=== PATIENT | male | born 1945 | race Caucasian/White ===

== ENCOUNTER 2017-10-05 10:41 | Emergency (ER) | payer OTHER, SELFPAY ==
[2017-10-05 10:42] VITALS: BP 120/76; PULSE 154; RESP 16; TEMP 36.4; O2SAT 95; BMI 30.2
--- NOTE | 2017-10-05 10:55 | CT_ITS ---
STUDY: CT ABDOMEN AND PELVIS WITHOUT CONTRAST REASON FOR EXAM: Male, 72 years old. Abdominal pain, nausea and diarrhea. RADIATION DOSAGE (If Supplied By Facility): CTDIvol = ( 22.57 ) mGy, DLP = ( 1302.89 ) mGycm TECHNIQUE: Transaxial images were obtained from the dome of the diaphragm to the symphysis pubis without oral contrast, and without intravenous contrast. Sagittal and coronal images were reconstructed. Individualized dose optimization techniques were used for this CT. COMPARISON: None. FINDINGS: The visualized lung bases are unremarkable. The heart size is normal. There is diffuse fatty infiltration of the liver. No focal lesion is identified on this noncontrast examination. There is a gallstone in the gallbladder neck. There is questionable thickening of the gallbladder wall. Normal spleen. Normal pancreas. Normal bilateral adrenal glands. There is mild bilateral perinephric stranding. There is no evidence of hydronephrosis. No abnormal calcifications are seen in the kidneys or the expected courses of the ureters bilaterally. There is probably small hiatal hernia. Normal small intestine. There is fecal retention. The appendix is visualized and appears normal. There is atherosclerotic calcification of the abdominal aorta with elongation and tortuosity, but without a demonstrated aneurysm. Normal inferior vena cava. Normal retroperitoneum. Normal urinary bladder. The prostate is markedly enlarged indenting the bladder base. There are prostatic calcifications. Normal abdominal wall. There are diffuse degenerative changes of the visualized lumbar spine. CT/Abdomen/Pelvis without Cont IMPRESSION: 1. Fatty infiltration of the liver. 2. Gallstone with questionable thickening of the gallbladder wall. Correlation with gallbladder ultrasound is recommended. 3. No evidence of appendicitis. 4. Nonspecific mild bilateral perinephric stranding without evidence of hydronephrosis. Electronically Signed: Shane Rivera MD at 12:03 EDT Tel , Service support ,
--- NOTE | 2017-10-05 10:56 | ED.VISSUMM ---
- ER Visit Summary Date of Service: 10/05/17 Chief Complaint: Abdominal pain, weakness History of Present Illness: The patient is a 72 M who had abdominal pain that started last night. He states his stomach felt tight. He had 3 episodes of vomiting last night. He denies any diarrhea. He has never had any abdominal surgeries in the past. He tried Pepto-Bismol but it did not help. No fevers. He denies any chest pain or shortness of breath. He also feels dizzy and weak. Physical Examination: Vital signs reviewed. Heart rate is 149. HEENT exam unremarkable. Heart is tachycardic and regular rhythm without murmurs. Lungs are clear to auscultation bilaterally. Abdomen soft with no specific tenderness upon palpation. He is mildly distended. The rest of his exam is unremarkable Test Results: EKG is sinus tachycardia with a rate of 145. Nonspecific ST and T-wave changes. White blood cell count 18.4, sodium 134 chloride 96 glucose 320 BUN 26 creatinine 1.79 total bilirubin 5.5 ALT 235 AST 407. CAT scan reveals gallbladder wall thickening with a gallstone Emergency Department Course and Treatment: My concern is that this patient likely needs a surgical evaluation. I spoke with Dr. Redd who believes the patient likely needs an ERCP which he cannot perform. I talked with family about this and they requested to go to [facility]. Dr. Chauhan the surgeon occupational therapy department chair will accept the patient. Treatment Plan: [] Disposition: Transfer Impression: Acute cholecystitis with probable choledocholithiasis Sepsis This note was generated with [employer] dictation software. It may contain incorrect words, spelling, and punctuation that were not noted in review of the chart prior to signing ED Disposition - Plan for ED Patient: Chief Complaint: Weakness Referrals: Guanako Brownlee DO [Primary Care Provider] -
[2017-10-05] MEDS: 0.9% Normal Saline 1,000 ML 1000 ML IV (11:04)
[2017-10-05 11:05] LABS: Absolute Lymphocyte Count 1.24 X10^3/ul (0.83-4.51); Absolute Neutrophil Count 15.9 X10^3/uL (2.0-7.7); Basophil# 0.01 X10^3/uL; Basophil% 0.1 % (0-1); Hematocrit 44.5 % (40-54); Hemoglobin 15.9 g/dl (13.0-16.5); Lymphocyte # 1.24 X10^3/ul (4.0); Lymphocyte % 6.7 % (19-41); Mean Corp Hgb Conc 35.7 g/gl (32-36); Mean Corpuscular Hgb 32.3 pg (27.0-32.0); Mean Corpuscular Volume 90.3 fL (80-94); Mean Platelet Vol. 11.1 fl (6.2-12.0); Monocyte# 1.21 X10^3/uL; Monocyte% 6.6 % (0-10); Neutrophil # 15.93 X10^3/uL (2.7-7.7); Neutrophil % 86.4 % (47-70); POSITIVE COUNT NO; POSITIVE DIFFERENTIAL NO; POSITIVE MORPHOLOGY NO; Platelet Count 148 K/mm3 (150-450); RBC Distribution Width CV 13.4 % (11.6-14.6); RBC Distribution Width SD 44.1 fl (35.1-43.9); Red Blood Count 4.93 M/mm3 (4.6-6.2); White Blood Count 18.4 K/mm3 (4.4-11.0)
[2017-10-05] MEDS: Ondansetron 4 MG/2 ML Vial IV (11:05)
[2017-10-05 11:08] VITALS: BP 106/79; PULSE 146; RESP 30; O2SAT 96
[2017-10-05 11:19] LABS: AST(SGOT) 407 U/L (15-37); Alanine Aminotransfer ALT/SGPT 235 U/L (16-61); Albumin, Serum 3.7 g/dL (3.2-5.0); Alkaline Phosphatase 91 U/L (45-117); Anion Gap 18 (5-15); BUN 26 mg/dL (7-18); BUN/Creat Ratio 14.5 RATIO (10-20); Calcium,Total 8.6 mg/dL (8.5-10.1); Chloride 96 mmol/L (98-107); Creatinine, Serum 1.79 mg/dL (0.70-1.30); EST Glomerular Filtration Rate 40 mL/min (>60); Est Glom Filt Rate - Afr Amer 49 mL/min (>60); Estimated Creatinine Clearance 44.65 ml/min; Globulin 3.8 g/dL (2.2-4.2); Glucose 320 mg/dL (74-106); Lipase 146 U/L (73-393); Potassium 3.6 mmol/L (3.5-5.1); Protein, Total 7.5 g/dL (6.4-8.2); Sodium Level 134 mmol/L (136-145)
[2017-10-05 12:09] VITALS: BP 107/72; PULSE 140; RESP 22; O2SAT 98
--- NOTE | 2017-10-05 12:17 | NURSING ---
CALLED [facility] FOR TRANSFER, FAXED FACESHEET
[2017-10-05] MEDS: 0.9% Normal Saline 1,000 ML 999 ML IV ×2 (12:35→13:38)
--- NOTE | 2017-10-05 12:37 | NURSING ---
DR DURAND FOR DR ROSE
--- NOTE | 2017-10-05 12:43 | NURSING ---
[facility], CALLED. SURGEON, DR HARGROVE, WILL BE ACCEPTING PATIENT BEDS ARE TIGHT
[2017-10-05 12:55] LABS: Lactic Acid 5.4 mmol/L (0.4-2.0)
--- NOTE | 2017-10-05 13:00 | NURSING ---
[facility] BED H70 BED 2 REPORT [phone]
[2017-10-05 13:20] VITALS: BP 115/74; PULSE 124; RESP 24; O2SAT 98
--- NOTE | 2017-10-05 13:23 | NURSING ---
CALLED [facility], ETA IS 10 TO 15
[2017-10-05 13:36] VITALS: BP 115/74; PULSE 124; RESP 24; TEMP 36.8; O2SAT 98
[2017-10-05 13:37] LABS: Mucous, Urine 0 SEEN /hpf (<or=2+); Squamous Epithelial Cells - UA 0 SEEN /hpf (0-5)
[2017-10-05 13:40] LABS: Color, Urine Yellow (Yellow); Glucose, Dipstick 250 mg/dl (Normal); Ketone-Dipstick 50 mg/dl (Negative); Leukocyte Esterase-Dipstick 25 /ul (Negative); Nitrite-Dipstick Negative (Negative); Occult Blood-Urine 10 /ul (Negative); Protein-Dipstick 15 mg/dl (Negative); Specific Gravity, Urine 1.015 (1.002-1.030); Urine Clarity Sl. Cloudy (Clear); Urine Urobilinogen 1 mg/dl (Normal)
[2017-10-05 13:42] LABS: Urine Bilirubin Dipstick 3 mg/dL (Negative)
[2017-10-05 13:51] LABS: Bacteria 1+ /hpf (None Seen); Red Blood Cells-Urine 0-5 SEEN /hpf (0-5); White Blood Cells 0-5 SEEN /hpf (0-5)
[2017-10-05 16:21] LABS: Reflex Lactate? Y
== END 2017-10-05 14:01 | disposition short-term general hospital (02) ==
LOC: ED 11:52
PROVIDERS: Emergency Provider Emergency Medicine; Family Provider Family Medicine; PCP Family Medicine
DX: A41.9 Sepsis, unspecified organism (principal); K81.0 Acute cholecystitis; E11.9 Type 2 diabetes mellitus without complications; R42 Dizziness and giddiness; Z79.84 Long term (current) use of oral hypoglycemic drugs; Z79.82 Long term (current) use of aspirin; Z79.899 Other long term (current) drug therapy
CPT/HCPCS: 74176; 80053; 81001; 83605; 83690; 85025; 93005; 96361; 96365; 96375; 99284; J7030; A4216; J2405

== ENCOUNTER → 2017-10-31 12:58 | Outpatient (CLI) | payer SELFPAY ==
[2017-10-31 14:33] LABS: PSA,Total - Annual Screen 4.95 ng/mL (0.00-4.00)
[2017-10-31 16:35] LABS: AST(SGOT) 27 U/L (15-37); Alanine Aminotransfer ALT/SGPT 36 U/L (16-61); Albumin, Serum 3.9 g/dL (3.2-5.0); Alkaline Phosphatase 72 U/L (45-117); Anion Gap 11 (5-15); BUN 24 mg/dL (7-18); BUN/Creat Ratio 24.6 RATIO (10-20); Calcium,Total 8.8 mg/dL (8.5-10.1); Chloride 106 mmol/L (98-107); Creatinine, Serum 0.98 mg/dL (0.70-1.30); EST Glomerular Filtration Rate 81 mL/min (>60); Est Glom Filt Rate - Afr Amer 98 mL/min (>60); Globulin 4.1 g/dL (2.2-4.2); Glucose 142 mg/dL (74-106); Potassium 3.8 mmol/L (3.5-5.1); Sodium Level 142 mmol/L (136-145)
== END ==
PROVIDERS: Family Provider Family Medicine; PCP Family Medicine; Visit Provider Nurse Practitioner Adult Health
DX: E11.9 Type 2 diabetes mellitus without complications (principal); I10 Essential (primary) hypertension; Z12.5 Encounter for screening for malignant neoplasm of prostate
CPT/HCPCS: 36415; 80053; 83036; 84153; G0103

== ENCOUNTER → 2018-03-04 08:29 | Outpatient (CLI) | payer SELFPAY ==
[2018-02-07 10:59] VITALS: BMI 32.7
--- NOTE | 2018-03-04 08:30 | ECHOD_ITS ---
Reason For Study: HTN and AVR Procedure This was a 2D Doppler, Color Flow transthoracic echocardiogram. Exam performed in department. Left Ventricle Normal LV size. Mild concentric left ventricular hypertrophy. Left ventricular systolic function is normal. The estimated ejection fraction is 60 %. Stage 1 diastolic dysfunction. No regional wall motion abnormalities noted. Right Ventricle Normal RV size. Normal systolic function. Atria Normal left atrium. Normal right atrium. Mitral Valve Normal mitral valve. Tricuspid Valve Normal tricuspid valve. Mild tricuspid valve insufficiency. Aortic Valve Peak aortic valve gradient 23 mmHg. Mean aortic valve gradient 11 mmHg. Bioprosthetic aortic valve. Pulmonic Valve Normal pulmonic valve. Great Vessels Normal aortic root. The pulmonary artery is normal size. Normal inferior vena cava. Pericardium/Pleural No pericardial effusion. MMode/2D Measurements & Calculations LVIDd: 4.7 cm IVSd: 1.4 cm LVOT diam: 2.4 cm LVIDs: 3.1 cm LVPWd: 1.3 cm LVOT area: 4.7 cm2 RVDd: 4.3 cm FS: 33.5 % LAV(MOD-bp): 64.3 ml LA A4 area: 19.8 cm2 LA dimension(2D): 4.7 cm LAV(MOD-bp) Indexed: 27.4 ml/m2 LAV(MOD-sp2): 65.0 ml LAV(MOD-sp4): 62.4 ml RA A4 area: 14.4 cm2 Doppler Measurements & Calculations MV E max tomas: 63.5 cm/sec Lat Peak E' Tomas: 8.8 cm/sec Med Peak E' Tomas: 7.4 cm/sec MV A max tomas: 111.7 cm/sec E/E' lat: 7.2 E/E' med: 8.6 MV E/A: 0.57 Ao V2 max: 243.6 cm/sec LV V1 max: 156.3 cm/sec SV(LVOT): 119.4 ml Ao max P.9 mmHg LV V1 max P.4 mmHg Ao V2 mean: 158.5 cm/sec LV V1 mean P.4 mmHg Ao mean P.5 mmHg LV V1 mean: 105.1 cm/sec Ao V2 VTI: 37.1 cm LV V1 VTI: 25.4 cm RADHA(I,D): 3.2 cm2 RADHA(V,D): 3.0 cm2 PA V2 max: 111.9 cm/sec TR max tomas: 206.9 cm/sec TR max P.1 mmHg Interpretation Summary Normal LV size. Mild concentric left ventricular hypertrophy. Left ventricular systolic function is normal. The estimated ejection fraction is 60 %. Stage 1 diastolic dysfunction. Bioprosthetic aortic valve. Compared to the previous the aortic valve has been replaced and functioning well. Ordering Physician: Himanshu Rodriguez Referring Physician: Guanako Brownlee Performed By: Mimi Naik, NIECY, RVT
== END ==
PROVIDERS: Family Provider Family Medicine; PCP Family Medicine; Referring Provider Internal Medicine Cardiovascular Disease; Visit Provider Internal Medicine Cardiovascular Disease
DX: Z95.2 Presence of prosthetic heart valve (principal)
CPT/HCPCS: 93306

== ENCOUNTER → 2018-10-28 15:47 | Outpatient (CLI) | payer SELFPAY ==
[2018-08-12 15:26] VITALS: BMI 31.7
[2018-10-28 17:57] LABS: PSA,Total - Annual Screen 4.79 ng/mL (0.00-4.00)
== END ==
PROVIDERS: Family Provider Family Medicine; PCP Family Medicine; Referring Provider Nurse Practitioner Family; Visit Provider Nurse Practitioner Family
DX: Z12.5 Encounter for screening for malignant neoplasm of prostate (principal)
CPT/HCPCS: 36415; 84153; G0103

== ENCOUNTER 2019-01-12 07:54 | Emergency (ER) | payer OTHER, SELFPAY ==
[2018-10-28 16:31] VITALS: BMI 31.9
[2019-01-12 07:56] VITALS: BP 152/77; PULSE 90; RESP 16; TEMP 36.3; O2SAT 95; BMI 30.8
--- NOTE | 2019-01-12 08:24 | ED.VIS.GEN ---
History of Present Illness Chief Complaint: Nosebleed Informant: Patient Onset: Yesterday Timing: Waxes and wanes Current Severity: Mild Maximum Severity: Moderate Narrative: Patient presents with left-sided epistaxis that started yesterday morning. Patient states he had almost constant bleeding since that time. He denies recent injury or URI symptoms. He takes 2 baby aspirin daily. - Past Medical History (1) Diabetes mellitus Status: Chronic (2) Essential (primary) hypertension Status: Chronic (3) Hyperlipidemia Status: Chronic (4) H/O aortic valve replacement Status: Resolved Comment: 27 mm Mookie Godinez pericardial valve (5) History of radiofrequency ablation procedure for cardiac arrhythmia Status: Resolved Comment: slow pathway Past Medical History - Allergies and Home Meds Allergies/Adverse Reactions: Allergies lisinopril Adverse Reaction (Verified 01/12/19 07:58) cough Primary Care Physician: Guanako Brownlee DO [Primary Care Provider] - Prior records reviewed: Yes Smoking Status: Never smoker Review of Systems General: Denies: Chills, Fever Eyes: Denies: Visual changes - bilaterally ENT: Reports: - - Nosebleed, left-sided. Denies: Bilateral ear pain Cardiovascular: Denies: Chest pain, Palpitations Respiratory: Denies: Dyspnea, Cough Gastrointestinal: Denies: Abdominal pain, Nausea, Vomiting, Diarrhea Musculoskeletal: Denies: Swelling Neurological: Denies: Headache Hematologic: Denies: Easy bruising, Easy bleeding Physical Exam Vital Signs/Narrative: Vital Signs Temp Pulse Resp BP Pulse Ox 01/12/19 07:56 97.3 F L 90 16 152/77 H 95 Inital Vital Signs reviewed: Yes General: Well nourished, Well developed Head: Normocephalic ENT: Moist mucous membranes, - - Blood noted in the left nare with inflammation of the turbinates. No definitive source of bleeding noted. Neck: Supple Cardiovascular: Regular rate, Regular rhythm Respiratory: No distress, CTA bilaterally Abdomen: Soft, Nontender Extremities: Nontender Skin: Normal color Neurological: Alert, Oriented x3 Psychological: Normal affect Diagnostic/Tx/Re-eval - Medical Decision Making Afrin and Cetacaine soaked cottonball was applied to the left nare. After a few minutes this was exchanged with a 5.5 cm Rhino Rocket. Balloon was inflated. On repeat evaluation bleeding is controlled. He has some watery drainage from the Rhino Rocket itself, but no active bleeding. Patient was able to ambulate down the warner and back without difficulty. He will be treated with a 3-day course of Keflex to help prevent sinus infection. He will follow-up with Dr. Samuel, on-call for ENT. ED Disposition - Plan for ED Patient: Disposition: Home or Assisted Living Diagnosis: Epistaxis Instructions: Nosebleed Prescriptions: Cephalexin [Keflex] 500 mg PO Q6 #12 capsule Referrals: Daniel Javed MD [STAFF PHYSICIAN] - 3-5 Days
[2019-01-12] MEDS: Oxymetazoline 0.05% 1 SPRAY SPRAY.BTL 2 SPRAY NASAL (08:42)
[2019-01-12] MEDS: Tetracaine/Benzocaine/Butamben 1 APPLIC TOPICAL (08:42)
== END 2019-01-12 09:22 | disposition home or self-care (01) ==
PROVIDERS: Emergency Provider Emergency Medicine; Family Provider Family Medicine; PCP Family Medicine
DX: R04.0 Epistaxis (principal); E11.9 Type 2 diabetes mellitus without complications; I10 Essential (primary) hypertension; E78.5 Hyperlipidemia, unspecified; Z79.82 Long term (current) use of aspirin; Z79.84 Long term (current) use of oral hypoglycemic drugs; Z79.899 Other long term (current) drug therapy; Z95.2 Presence of prosthetic heart valve
CPT/HCPCS: 30901; 99282

== ENCOUNTER → 2020-01-12 09:20 | Outpatient (CLI) | payer OTHER, SELFPAY ==
[2020-01-12 07:38] VITALS: BMI 31.8
[2020-01-12 10:03] LABS: AST(SGOT) 21 U/L (15-37); Alanine Aminotransfer ALT/SGPT 35 U/L (16-61); Albumin, Serum 3.8 g/dL (3.2-5.0); Alkaline Phosphatase 81 U/L (45-117); Bilirubin, Direct 0.15 mg/dL (0.00-0.30); Cholesterol 146 mg/dL (200); High Density Lipoprotein 26 mg/dL; Protein, Total 7.8 g/dL (6.4-8.2); Triglycerides 301 mg/dL; Very Low Density Lipoprotein 60 mg/dL (5-40)
== END ==
PROVIDERS: PCP Family Medicine; Referring Provider Internal Medicine Cardiovascular Disease; Visit Provider Internal Medicine Cardiovascular Disease
DX: E78.5 Hyperlipidemia, unspecified (principal)
CPT/HCPCS: 36415; 80061; 80076

== ENCOUNTER → 2020-11-14 13:00 | Outpatient (CLI) | payer SELFPAY ==
--- NOTE | 2020-11-14 13:03 | ECHOD_ITS ---
Reason For Study: AVR Procedure This was a 2D Doppler, Color Flow transthoracic echocardiogram. Exam performed in department. Left Ventricle Normal LV size. Moderate concentric left ventricular hypertrophy. Left ventricular systolic function is normal. The estimated ejection fraction is 60 %. Stage 1 diastolic dysfunction. No regional wall motion abnormalities noted. Right Ventricle Normal RV size. Normal systolic function. Atria Normal left atrium. Normal right atrium. Mitral Valve There is mild mitral annular calcification. Mild (1+) eccentric mitral valve insufficiency. Tricuspid Valve Normal tricuspid valve. Aortic Valve Peak aortic valve gradient 18 mmHg. Mean aortic valve gradient 10 mmHg. Bioprosthetic aortic valve. Pulmonic Valve Normal pulmonic valve. Great Vessels Normal aortic root. The pulmonary artery is normal size. Normal inferior vena cava. Pericardium/Pleural No pericardial effusion. MMode/2D Measurements & Calculations LVIDd: 3.8 cm IVSd: 1.5 cm LVOT diam: 2.4 cm LVIDs: 2.4 cm LVPWd: 1.4 cm LVOT area: 4.4 cm2 RVDd: 3.3 cm FS: 36.4 % Ao root diam: 4.1 cm LAV(MOD-bp): 56.2 ml LVAd ap4: 34.1 cm2 LAV(MOD-bp) Indexed: 23.9 ml/m2 LVLd ap4: 8.6 cm LAV(MOD-sp2): 44.0 ml EDV(MOD-sp4): 114.6 ml LAV(MOD-sp4): 61.3 ml EDV(sp4-el): 115.4 ml LVAs ap4: 20.6 cm2 LVLs ap4: 7.6 cm ESV(MOD-sp4): 51.1 ml ESV(sp4-el): 47.5 ml EF(MOD-sp4): 55.4 % EF(sp4-el): 58.8 % LVAd ap2: 28.9 cm2 SV(MOD-sp4): 63.5 ml SV(MOD-sp2): 43.4 ml LVLd ap2: 8.5 cm EDV(MOD-sp2): 83.1 ml EDV(sp2-el): 83.4 ml LVAs ap2: 18.2 cm2 LVLs ap2: 7.2 cm ESV(MOD-sp2): 39.8 ml ESV(sp2-el): 38.6 ml EF(MOD-sp2): 52.2 % SV(sp4-el): 67.9 ml LA dimension(2D): 4.1 cm LA A4 area: 21.8 cm2 RA A4 area: 15.1 cm2 Doppler Measurements & Calculations MV E max tomas: 75.4 cm/sec Lat Peak E' Tomas: 6.5 cm/sec Med Peak E' Tomas: 7.1 cm/sec MV A max tomas: 107.0 cm/sec E/E' lat: 11.7 E/E' med: 10.6 MV E/A: 0.70 Ao V2 max: 212.9 cm/sec LV V1 max: 117.0 cm/sec SV(LVOT): 103.5 ml Ao max P.3 mmHg LV V1 max P.5 mmHg Ao V2 mean: 144.0 cm/sec LV V1 mean P.1 mmHg Ao mean P.4 mmHg LV V1 mean: 83.2 cm/sec Ao V2 VTI: 40.5 cm LV V1 VTI: 23.3 cm RADHA(I,D): 2.6 cm2 RADHA(V,D): 2.4 cm2 PA V2 max: 97.6 cm/sec TR max tomas: 216.5 cm/sec TR max P.7 mmHg ECHO/Echo Complete Interpretation Summary Normal LV size. Moderate concentric left ventricular hypertrophy. Left ventricular systolic function is normal. The estimated ejection fraction is 60 %. Stage 1 diastolic dysfunction. Bioprosthetic aortic valve. Ordering Physician: Himanshu Rodriguez Referring Physician: Lawrence Brownlee M.D. Performed By: Kaela Santacruz RDCS
== END ==
PROVIDERS: PCP Family Medicine; Referring Provider Internal Medicine Cardiovascular Disease; Visit Provider Internal Medicine Cardiovascular Disease
DX: Z95.2 Presence of prosthetic heart valve (principal)
CPT/HCPCS: 93306

== ENCOUNTER 2020-12-07 21:30 | Inpatient (IN) | payer OTHER, SELFPAY ==
[2020-12-07] VITALS (12 sets, daily range): BP systolic 126–178; BP diastolic 76–114; PULSE 102–160; RESP 12–48; TEMP 36.6–36.8; O2SAT 81–96; BMI 32.3
--- NOTE | 2020-12-07 22:06 | CT_ITS ---
STUDY: CTA CHEST REASON FOR EXAM: Male, 75 years old. pulmonary embolism RADIATION DOSAGE (If Supplied By Facility): CTDIvol = ( 12.44 ) mGy, DLP = ( 510.40 ) mGycm TECHNIQUE: The examination was performed with the intravenous administration of IV 100mL Isovue-370. Post-processing of the angiographic images was performed, with multiplanar reformation and 3D reconstruction. Individualized dose optimization techniques were used for this CT. COMPARISON: None. FINDINGS: Normal enhancement of the main pulmonary artery and right and left pulmonary arteries. Normal enhancement of the bilateral peripheral pulmonary arteries. There is no demonstrated pulmonary embolism. Normal thoracic aorta and visualized great vessels. There is no demonstrated aortic dissection. Normal heart and pericardium. Normal mediastinum. Normal hilar regions. Normal visualized trachea and bronchi. The lungs are well expanded. Diffuse patchy groundglass airspace disease bilaterally. Findings are compatible with COVID pneumonia. Normal pleura. Normal chest wall structures. Normal osseous structures. Normal visualized upper abdomen. CT/CTA Chest W/WO Contrast IMPRESSION: Normal CTA chest examination, without a demonstrated pulmonary embolism or arterial dissection. Diffuse COVID pneumonia Electronically Signed: Karthikeyan Coulter DO at 0:17 EDT Tel , Service support ,
--- NOTE | 2020-12-07 22:06 | EKG12_ITS ---
Test Reason : SOB Blood Pressure : / mmHG Vent. Rate : 117 BPM Atrial Rate : 153 BPM P-R Int : 000 ms QRS Dur : 092 ms QT Int : 318 ms P-R-T Axes : 000 -05 013 degrees QTc Int : 443 ms Atrial fibrillation Inferior infarct , age undetermined Abnormal ECG Confirmed by ERIC RAMIREZ, HEIDI ([id number]), fashion editor MAX DISLA ([id number]) on 12/13/2020 6:38:31 AM Referred By: DENA Confirmed By:HEIDI REYES MD
--- NOTE | 2020-12-07 22:09 | ED.VIS.DYS ---
HPI History of Present Illness Chief Complaint: Shortness of Breath Informant: patient and family Narrative Narrative: so they brought him to the emergency department. Tonight his oxygen levels were around 85% at home and they are uncomfortable with that Family states that he has been sick with Covid symptoms for 12 days. He has a history of aortic valve replacement hypertension and diabetes.75-year-old [facility] male presents to the emergency department shortness of breath. He is accompanied by his son. Patient has been on doxycycline and dexamethasone They note intermittent fevers diarrhea headache myalgias cough and shortness of breath. and is now on hydroxychloroquine. He is unvaccinated against COVID-19. Family denies any anticoagulant. They do not know what type of aortic valve he had placed. [facility] Medical History Essential (primary) hypertension Hyperlipidemia Obesity Rheumatic aortic stenosis SVT (supraventricular tachycardia) Type 2 diabetes mellitus Home Medications aspirin 81 mg chewable tablet 162 mg PO .COMPLEX 02/05/17 [History Last Taken Unknown] glipizide 2.5 mg tablet, extended release 24 hr 2.5 mg PO DAILY #90 tab 05/18/20 [Rx Last Taken Unknown] losartan 100 mg tablet 100 mg PO DAILY #90 tab 07/13/20 [Rx Last Taken Unknown] tamsulosin 0.4 mg capsule 0.4 mg PO QHS #90 cap 07/13/20 [Rx Last Taken Unknown] hydroxychloroquine 200 mg PO BID 12/07/20 [History Last Taken Unknown] metformin 1,500 mg PO 12/07/20 [History Last Taken Unknown] metoprolol succinate [Toprol XL] 5 mg PO BID 12/07/20 [History Last Taken Unknown] Allergy/AdvReac Type Severity Reaction Status Date / Time lisinopril AdvReac cough Verified 12/07/20 21:35 Family History Sister Heart disease Mother Cancer Surgical History H/O aortic valve replacement (08/2013) History of cholecystectomy History of left heart catheterization (08/17/13) History of radiofrequency ablation procedure for cardiac arrhythmia (04/29/03) Social History Smoking Status: Never smoker alcohol intake: never substance use type: does not use what type of physical activity do you participate in: none ROS ROS ED ROS Narrative Generalized fatigue Constitutional Constitutional ED: Reports fever(s) and sweats Eyes Eyes: Denies change in vision or diplopia ENT ENT ED: Reports rhinorrhea; Denies ear pain or sore throat Cardiovascular Cardiovascular: Reports racing heartbeat; Denies chest pain, orthopnea or palpitations Respiratory/Chest Respiratory/Chest: Reports cough, dyspnea and dyspnea on exertion; Denies orthopnea Gastrointestinal Gastrointestinal: Reports diarrhea; Denies abdominal pain, nausea or vomiting Genitourinary Genitourinary ED: Denies dysuria, hematuria or urinary frequency Musculoskeletal Musculoskeletal: Reports myalgias; Denies arthralgias Integumentary Denies abscess or rash Neurologic Neurologic: Reports headache(s); Denies weakness Psychiatric Psychiatric: Denies anxiety, depression, suicidal ideation or suicidal thoughts Endocrine Endocrinology: Denies polydipsia, polyphagia or polyuria Allergic/Immunologic Allergic/Immunologic ED: Denies mouth swelling, tongue swelling or urticaria EXAM Physical Exam Narrative Exam Narrative: Patient is in respiratory distress. Const Vital Signs: 12/07/20 21:31 12/07/20 21:37 12/07/20 21:44 Temperature 98.2 F 98.2 F Temperature Source Oral Oral Pulse Rate 160 H 156 H 112 H Respiratory Rate 48 H 42 H 34 H Respiratory Pattern Blood Pressure 162/99 H 166/107 H 126/94 H Blood Pressure Mean 120 126 104 Blood Pressure Source Blood Pressure Position Blood Pressure Location Pulse Ox 81 88 89 Oxygen Delivery Method Room Air Non-Rebreather Non-Rebreather Oxygen Flow Rate (L/min) 15 15 Fraction of Inspired Oxygen (FIO2) 12/07/20 21:59 12/07/20 22:10 12/07/20 22:15 Temperature Temperature Source Pulse Rate 131 H 160 H Respiratory Rate 30 H 38 H Respiratory Pattern Tachypnea Blood Pressure 178/114 H Blood Pressure Mean 135 Blood Pressure Source Blood Pressure Position Blood Pressure Location Pulse Ox 91 90 96 Oxygen Delivery Method Non-Rebreather Non-Rebreather Oxygen Flow Rate (L/min) 15 Fraction of Inspired Oxygen (FIO2) 70 12/07/20 22:35 12/07/20 22:39 12/07/20 22:55 Temperature 98 F Temperature Source Temporal Pulse Rate 121 H 126 H Respiratory Rate 39 H 39 H 41 H Respiratory Pattern Blood Pressure 140/90 H 140/90 H Blood Pressure Mean 106 106 Blood Pressure Source Monitor Blood Pressure Position Sitting Blood Pressure Location Right Arm Pulse Ox 93 93 91 Oxygen Delivery Method Bi-pap Bi-pap Bi-pap Oxygen Flow Rate (L/min) Fraction of Inspired Oxygen (FIO2) 12/07/20 23:00 12/07/20 23:10 12/07/20 23:40 Temperature 98 F Temperature Source Temporal Pulse Rate 102 H 112 H 122 H Respiratory Rate 21 H 26 H 38 H Respiratory Pattern Blood Pressure 132/76 H 132/76 H 137/81 H Blood Pressure Mean 94 94 99 Blood Pressure Source Monitor Monitor Blood Pressure Position Sitting Sitting Blood Pressure Location Right Arm Right Arm Pulse Ox 89 90 94 Oxygen Delivery Method Non-Rebreather Non-Rebreather Bi-pap Oxygen Flow Rate (L/min) 15 Fraction of Inspired Oxygen (FIO2) 12/08/20 00:00 12/08/20 00:01 12/08/20 00:10 Temperature 97.8 F Temperature Source Temporal Pulse Rate 125 H 138 H 98 Respiratory Rate 25 H 30 H 30 H Respiratory Pattern Tachypnea Blood Pressure 115/84 H 147/98 H Blood Pressure Mean 94 114 Blood Pressure Source Monitor Blood Pressure Position Sitting Blood Pressure Location Right Arm Pulse Ox 96 96 95 Oxygen Delivery Method Bi-pap Bi-pap Oxygen Flow Rate (L/min) Fraction of Inspired Oxygen (FIO2) 100 Positive well nourished, well developed and obese General Appearance ED: well developed Nutritional Appearance: obese HEENT Reports normocephalic, head/scalp atraumatic, TM's clear and moist mucous membranes atraumatic Tympanic Membrane ED: Yes TM's clear Eyes PERRL and EOMs intact bilaterally Neck no lymphadenopathy, supple and no JVD Resp clear to auscultation bilaterally Resp Narrative: Patient is tachypneic with increased accessory muscle use Cardio no murmurs Rate: other Other Details: Irregularly irregular tachycardic GI normal to inspection, nondistended, normoactive bowel sounds and non-tender Palpation: soft Back/Spine no CVA tenderness and normal ROM Extremity normal to inspection General Extremety ED: Negative for edema General Extremity: Negative for edema Neuro oriented x3 and CN's II-XII intact bilaterally Sensorium / Orientation: alert Motor Exam: strength 5/5 throughout Psych mental status grossly normal Mood & Affect: Negative for depressed or tearful Skin no rashes or lesions noted and no wounds MDM MDM MDM Narrative Medical decision making narrative: Patient is Covid positive. His white count is 15.4. His labs are very concerning for severe Covid illness. His lactic acid is substantially elevated which I believe is due to hypoxemia. CTA does not demonstrate any pulmonary embolism. Patient was given Decadron and was placed on BiPAP. Unfortunately the patient states he cannot tolerate the BiPAP and the family took him off of it. We will attempt to do a high flow nasal cannula. He was also given Cardizem and placed on a Cardizem drip and it is being titrated. His rate is improved. Plan is admission into the ICU. Lab Data Attestation: I reviewed the patient's lab results. Labs: Laboratory Results - last 24 hr 12/07/20 12/07/20 12/07/20 21:35 21:35 21:35 WBC 15.4 H RBC 5.15 Hgb 15.7 Hct 43.7 MCV 84.9 MCH 30.5 MCHC 35.9 RDW Std Deviation 39.7 RDW Coeff of Anabella 12.9 Plt Count 290 MPV 10.9 Immature Gran % (Auto) 1.600 H Neut % (Auto) 86.0 H Lymph % (Auto) 8.3 L Ida % (Auto) 2.5 Eos % (Auto) 1.3 Baso % (Auto) 0.3 Absolute Neuts (auto) 13.2 H Absolute Lymphs (auto) 1.27 Nucleated RBC % 0 Differential Comment SCANNED Diff Path Review May foll Fibrinogen 506 H D-Dimer Quant (PE/DVT) 12.53 H* Sodium 124 L Potassium 4.1 Chloride 92 L Carbon Dioxide 18.0 L Anion Gap 14 BUN 30 H Creatinine 1.19 Estim Creat Clear Calc 60.68 Est GFR (MDRD) Af Amer 77 Est GFR (MDRD) Non-Af 64 BUN/Creatinine Ratio 25.2 H Glucose 169 H Lactic Acid Calcium 8.8 Magnesium 1.7 Total Bilirubin 1.10 H AST 150 H ALT 136 H Alkaline Phosphatase 90 Lactate Dehydrogenase 724 H Total Creatine Kinase 865 H Troponin I High Sens 16 C-React Prot Ext Range 186.00 H B-Natriuretic Peptide Total Protein 7.1 Albumin 2.3 L Globulin 4.8 H Albumin/Globulin Ratio 0.5 L Procalcitonin 12/07/20 12/07/20 12/07/20 21:35 21:35 21:35 WBC RBC Hgb Hct MCV MCH MCHC RDW Std Deviation RDW Coeff of Anabella Plt Count MPV Immature Gran % (Auto) Neut % (Auto) Lymph % (Auto) Ida % (Auto) Eos % (Auto) Baso % (Auto) Absolute Neuts (auto) Absolute Lymphs (auto) Nucleated RBC % Differential Comment Diff Path Review Fibrinogen D-Dimer Quant (PE/DVT) Sodium Potassium Chloride Carbon Dioxide Anion Gap BUN Creatinine Estim Creat Clear Calc Est GFR (MDRD) Af Amer Est GFR (MDRD) Non-Af BUN/Creatinine Ratio Glucose Lactic Acid 4.8 H* Calcium Magnesium Total Bilirubin AST ALT Alkaline Phosphatase Lactate Dehydrogenase Total Creatine Kinase Troponin I High Sens C-React Prot Ext Range B-Natriuretic Peptide 41.3 Total Protein Albumin Globulin Albumin/Globulin Ratio Procalcitonin 0.17 H Radiography Diagnostic Testing: Clinical Impression(s) from Imaging Studies Chest CTA 12/07/20 22:06 IMPRESSION: Normal CTA chest examination, without a demonstrated pulmonary embolism or arterial dissection. Diffuse COVID pneumonia Electronically Signed: Karthikeyan Coulter DO at 0:17 EDT Tel , Service support , EKG Initial EKG: Attestation: I personally reviewed and interpreted this EKG as follows: Comments: Atrial fibrillation with rapid ventricular response Discharge Plan Dx/Rx/DC Orders Clinical Impression: Acute hypoxemic respiratory failure, Type 2 diabetes mellitus, Atrial fibrillation with rapid ventricular response, COVID-19 Disposition Disposition: Acute Care Hospital [facility]
[2020-12-07] MEDS: dilTIAZem 25 MG/5 ML Vial 10 MG IV BOLUS (22:17)
[2020-12-07 22:22] LABS: Absolute Lymphocyte Count 1.27 X10^3/uL (0.83-4.51); Absolute Neutrophil Count 13.2 X10^3/uL (2.0-7.7); Basophil# 0.05 X10^3/uL; Basophil% 0.3 % (0-1); Eosinophils% 1.3 % (0-5); Hematocrit 43.7 % (40-54); Hemoglobin 15.7 g/dL (13.0-16.5); Lymphocyte # 1.27 X10^3/ul (0.83-4.51); Lymphocyte % 8.3 % (19-41); Mean Corp Hgb Conc 35.9 g/dL (32-36); Mean Corpuscular Hgb 30.5 pg (27.0-32.0); Mean Corpuscular Volume 84.9 fL (80-94); Mean Platelet Vol. 10.9 fl (6.2-12.0); Monocyte# 0.39 X10^3/uL; Monocyte% 2.5 % (0-10); NRBC Flagged by Analyzer 0 % (0-5); Neutrophil # 13.21 X10^3/uL (2.7-7.7); POSITIVE MORPHOLOGY YES; Platelet Count 290 K/mm3 (150-450); RBC Distribution Width CV 12.9 % (11.6-14.6); RBC Distribution Width SD 39.7 fl (35.1-43.9); Red Blood Count 5.15 M/mm3 (4.6-6.2); White Blood Count 15.4 K/mm3 (4.4-11.0)
[2020-12-07 22:28] LABS: Differential Indicated SCAN CRITERIA MET
[2020-12-07 22:37] LABS: Lactic Acid 4.8 mmol/L (0.4-1.9)
[2020-12-07 22:39] LABS: ALB/GLOB Ratio 0.5 RATIO (0.9-2.4); AST(SGOT) 150 U/L (15-37); Alanine Aminotransfer ALT/SGPT 136 U/L (16-61); Albumin, Serum 2.3 g/dL (3.2-5.0); Alkaline Phosphatase 90 U/L (45-117); Anion Gap 14 (5-15); BUN 30 mg/dL (7-18); BUN/Creat Ratio 25.2 RATIO (10-20); CPK Total, Creatine Kinase 865 U/L (39-308); Calcium,Total 8.8 mg/dL (8.5-10.1); Chloride 92 mmol/L (98-107); Creatinine, Serum 1.19 mg/dL (0.70-1.30); EST Glomerular Filtration Rate 64 mL/min (>60); Est Glom Filt Rate - Afr Amer 77 mL/min (>60); Estimated Creatinine Clearance 60.68 ml/min; Globulin 4.8 g/dL (2.2-4.2); Glucose 169 mg/dL (74-106); LDH 724 U/L (87-241); Magnesium 1.7 mg/dL (1.6-2.6); Potassium 4.1 mmol/L (3.5-5.1); Protein, Total 7.1 g/dL (6.4-8.2); Sodium Level 124 mmol/L (136-145); Troponin-I HS 16 pg/mL (3.0-78.0)
[2020-12-07 22:54] LABS: Fibrinogen 506 mg/dl (203-444)
[2020-12-07 22:55] LABS: Procalcitonin 0.17 ng/mL (0.00-0.09)
[2020-12-07 23:05] LABS: D-Dimer Quantitative (DVT/PE) 12.53 FEU/ug/m (0.27-0.49)
[2020-12-07 23:37] LABS: Differential Comment SCANNED
[2020-12-08] VITALS (42 sets, daily range): BP systolic 82–147; BP diastolic 48–102; PULSE 66–138; RESP 12–94; TEMP 35.9–37.2; O2SAT 87–99; BMI 30.5
[2020-12-08 00:19] LABS: BNP,B-Type NATRIURETIC PEPTIDE 41.3 pg/mL (0-100)
[2020-12-08] MEDS: dexAMETHasone 4 MG Tablet 6 MG PO (01:00)
[2020-12-08] MEDS: Enoxaparin 120 MG/0.8 ML Syringe 110 MG SC ×3 (01:02→20:36)
--- NOTE | 2020-12-08 01:11 | HP.PCM.HOS_ITS ---
HPI - General General Date of Admission: 12/08/20 Date of Service: 12/08/20 Chief Complaint: Hypoxia HPI Narrative IDRIS DUDLEY,is a 75 M Darren male with a significant history of aortic valve replacements who presents to the emergency department with hypoxia with oxygen saturation of about 85% on the day of presentation. Patient has been having progressively worsening Covid-like symptoms that started 2 days ago. Patient has had intermittent fever with T-max around 102. He has anorexia; fatigue; weakness; dry cough; hiccups; dysgeusia; anosmia; chest pain from coughing; and muscle aches. Patient took a 4-day course of Decadron. He also took a 7-day course of doxycycline. Before presentation the patient had taking 3 doses of hydroxychloroquine. Patient was found to be in A. fib with rapid ventricular response and he was given Cardizem bolus and drip. He was flipping back and forth in A. fib. Patient was placed on BiPAP but because his son said patient could not tolerate BiPAP was changed to nonrebreather mask. Patient had some leaves (?boco leaves) under his bilateral legs that son stated that it is to draw pain. [facility] Medical History Atrial fibrillation Essential (primary) hypertension Hyperlipidemia Obesity Rheumatic aortic stenosis SVT (supraventricular tachycardia) Type 2 diabetes mellitus Home Medications aspirin 81 mg chewable tablet 162 mg PO .COMPLEX 02/05/17 [History Last Taken Unknown] glipizide 2.5 mg tablet, extended release 24 hr 2.5 mg PO DAILY #90 tab 05/18/20 [Rx Last Taken Unknown] losartan 100 mg tablet 100 mg PO DAILY #90 tab 07/13/20 [Rx Last Taken Unknown] tamsulosin 0.4 mg capsule 0.4 mg PO QHS #90 cap 07/13/20 [Rx Last Taken Unknown] hydroxychloroquine 200 mg PO BID 12/07/20 [History Last Taken Unknown] metformin 1,500 mg PO 12/07/20 [History Last Taken Unknown] metoprolol succinate [Toprol XL] 5 mg PO BID 12/07/20 [History Last Taken Unknown] Allergy/AdvReac Type Severity Reaction Status Date / Time lisinopril AdvReac cough Verified 10/13/21 21:35 Family History Sister Heart disease Mother Cancer Surgical History H/O aortic valve replacement (08/2013) History of cholecystectomy History of left heart catheterization (08/17/13) History of radiofrequency ablation procedure for cardiac arrhythmia (04/29/03) Social History (Updated 12/08/20 @ 02:54 by Shine Diaz) adopted: No household members: spouse housing: house number of children: 10 financial difficulty paying for basics: not very hard service: No current occupational status: retired current occupational exposures/hazards: No pets and animals: No Smoking Status: Never smoker alcohol intake: never substance use type: does not use what type of physical activity do you participate in: none ROS ROS Narrative Constitutional: Reports fever, fatigue and generalized weakness. Eyes: Denies blurry vision, change in eye color, change in vision, discharge from eye(s), double vision, erythema, eye pain, loss of vision or other HEENT: Denies abnormal hearing, dysphagia, ear pain, epistaxis, headache(s), hearing loss, nasal congestion, nasal discharge, post nasal drip, sinus pressure, sore throat or other Cardiovascular: Reports chest pain. Denies palpitations. Respiratory/Chest: Reports dry cough. Reports shortness of breath. Denies wheezes. Gastrointestinal: Denies abdominal pain, coffee ground emesis, constipation, diarrhea, dyspepsia, hematemesis, hematochezia, loose stools, melena, nausea, vomiting or other Genitourinary: Denies burning urination, difficulty urinating, dysuria, hematuria, nocturia, urinary frequency, urinary hesitancy, urinary incontinence, urinary urgency or other Musculoskeletal: Reports myalgia. Denies arthralgias, back pain, joint pain, joint stiffness, joint swelling, neck pain or other Neurologic: Denies abnormal gait, abnormal speech, confusion, disequilibrium, dizziness, focal weakness, headache(s), numbness, paresthesias, seizure-like activity, seizures, syncope, tingling, tremor(s) or other Psychiatric: Denies anxiety, depression, homicidal ideation, suicidal ideation or other Endocrinology: Denies change in body appearance, excessive sweating, polydipsia, polyuria or other Hematologic/Lymphatic: Denies anemia, easy bleeding, easy bruising, lymphadenopathy or other Integumentary: Denies rashes Allergic/Immunologic: Denies rhinitis, hives, eczema, asthma or other Vital Signs Vital Signs Vital Signs: 12/07/20 21:31 12/07/20 21:37 12/07/20 21:44 Temperature 98.2 F 98.2 F Temperature Source Oral Oral Pulse Rate 160 H 156 H 112 H Respiratory Rate 48 H 42 H 34 H Respiratory Pattern Blood Pressure 162/99 H 166/107 H 126/94 H Blood Pressure Mean 120 126 104 Blood Pressure Source Blood Pressure Position Blood Pressure Location Pulse Ox 81 88 89 Oxygen Delivery Method Room Air Non-Rebreather Non-Rebreather Oxygen Flow Rate (L/min) 15 15 Fraction of Inspired Oxygen (FIO2) 12/07/20 21:59 12/07/20 22:10 12/07/20 22:15 Temperature Temperature Source Pulse Rate 131 H 160 H Respiratory Rate 30 H 38 H Respiratory Pattern Tachypnea Blood Pressure 178/114 H Blood Pressure Mean 135 Blood Pressure Source Blood Pressure Position Blood Pressure Location Pulse Ox 91 90 96 Oxygen Delivery Method Non-Rebreather Non-Rebreather Oxygen Flow Rate (L/min) 15 Fraction of Inspired Oxygen (FIO2) 70 12/07/20 22:35 12/07/20 22:39 12/07/20 22:55 Temperature 98 F Temperature Source Temporal Pulse Rate 121 H 126 H Respiratory Rate 39 H 39 H 41 H Respiratory Pattern Blood Pressure 140/90 H 140/90 H Blood Pressure Mean 106 106 Blood Pressure Source Monitor Blood Pressure Position Sitting Blood Pressure Location Right Arm Pulse Ox 93 93 91 Oxygen Delivery Method Bi-pap Bi-pap Bi-pap Oxygen Flow Rate (L/min) Fraction of Inspired Oxygen (FIO2) 12/07/20 23:00 12/07/20 23:10 12/07/20 23:40 Temperature 98 F Temperature Source Temporal Pulse Rate 102 H 112 H 122 H Respiratory Rate 21 H 26 H 38 H Respiratory Pattern Blood Pressure 132/76 H 132/76 H 137/81 H Blood Pressure Mean 94 94 99 Blood Pressure Source Monitor Monitor Blood Pressure Position Sitting Sitting Blood Pressure Location Right Arm Right Arm Pulse Ox 89 90 94 Oxygen Delivery Method Non-Rebreather Non-Rebreather Bi-pap Oxygen Flow Rate (L/min) 15 Fraction of Inspired Oxygen (FIO2) 10/14/21 00:00 12/08/20 00:01 12/08/20 00:10 Temperature 97.8 F Temperature Source Temporal Pulse Rate 125 H 138 H 98 Respiratory Rate 25 H 30 H 30 H Respiratory Pattern Tachypnea Blood Pressure 115/84 H 147/98 H Blood Pressure Mean 94 114 Blood Pressure Source Monitor Blood Pressure Position Sitting Blood Pressure Location Right Arm Pulse Ox 96 96 95 Oxygen Delivery Method Bi-pap Bi-pap Oxygen Flow Rate (L/min) Fraction of Inspired Oxygen (FIO2) 100 12/08/20 00:43 12/08/20 01:00 Temperature 97.8 F Temperature Source Temporal Pulse Rate 92 Respiratory Rate 39 H Respiratory Pattern Blood Pressure 143/79 H Blood Pressure Mean 100 Blood Pressure Source Blood Pressure Position Blood Pressure Location Pulse Ox 87 87 Oxygen Delivery Method Nasal Cannula Airvo Oxygen Flow Rate (L/min) 15 Fraction of Inspired Oxygen (FIO2) Weight Weight: 108.3 kg Body Mass Index (BMI) 32.3 Physical Exam Narrative Physical exam: General: Well-nourished, well-developed. Head: Normocephalic, atraumatic, no tenderness Eyes: PERRLA, EOMI ENT, no trauma, moist mucous membranes, no rhinorrhea Neck: Nontender, full range of motion, no spinal tenderness, deformities, step- off CVS: Tachycardia. Irregularly irregular rate and rhythm. S1-S2 present. No murmur, gallop or rub. Respiratory : Patient with a nonrebreather mask. Tachypnea, using accessory muscles of respirations. Rales. no wheezing Abdomen: Soft, nontender, nondistended, normal bowel sounds, no masses : Deferred Back: Nontender, no CVA tenderness, no midline spinal tenderness, deformities, step-offs Extremities: Nontender full range of motion, no trauma Skin: Normal color, no trauma, abrasions Neuro: Alert, oriented, cranial nerves II through XII grossly intact. Psychiatry: Normal mood. Normal affect. Not depressed. Not anxious. Results Lab / Micro Data Result Diagrams: 12/07/20 21:35 12/07/20 21:35 Labs: Laboratory Results - last 24 hr 12/07/20 21:35: WBC 15.4 H, RBC 5.15, Hgb 15.7, Hct 43.7, MCV 84.9, MCH 30.5, MCHC 35.9, RDW Std Deviation 39.7, RDW Coeff of Anabella 12.9, Plt Count 290, MPV 10.9, Immature Gran % (Auto) 1.600 H, Neut % (Auto) 86.0 H, Lymph % (Auto) 8.3 L , [place] % (Auto) 2.5, Eos % (Auto) 1.3, Baso % (Auto) 0.3, Absolute Neuts (auto) 13.2 H, Absolute Lymphs (auto) 1.27, Nucleated RBC % 0, Differential Comment SCANNED, Diff Path Review June12/07/20 21:35: Fibrinogen 506 H, D-Dimer Quant (PE/DVT) 12.53 H* 12/07/20 21:35: Sodium 124 L, Potassium 4.1, Chloride 92 L, Carbon Dioxide 18.0 L, Anion Gap 14, BUN 30 H, Creatinine 1.19, Estim Creat Clear Calc 60.68, Est GFR (MDRD) Af Amer 77, Est GFR (MDRD) Non-Af 64, BUN/Creatinine Ratio 25.2 H, Glucose 169 H, Calcium 8.8, Magnesium 1.7, Total Bilirubin 1.10 H, AST 150 H, ALT 136 H, Alkaline Phosphatase 90, Lactate Dehydrogenase 724 H, Total Creatine Kinase 865 H, Troponin I High Sens 16, C-React Prot Ext Range 186.00 H, Total Protein 7.1, Albumin 2.3 L, Globulin 4.8 H, Albumin/Globulin Ratio 0.5 L 12/07/20 21:35: Lactic Acid 4.8 H* 12/07/20 21:35: B-Natriuretic Peptide 41.3 12/07/20 21:35: Procalcitonin 0.17 H Micro: Microbiology 12/07/20 21:42 Nasal Secretion SARS-CoV-2 Antigen (Rapid) - Final SARS-CoV-2 (COVID 19) Radiology Impression Chest CTA 12/07/20 22:06 IMPRESSION: Normal CTA chest examination, without a demonstrated pulmonary embolism or arterial dissection. Diffuse COVID pneumonia Electronically Signed: Karthikeyan Coulter DO at 0:17 EDT Tel , Service support , Assessment & Plan Assessment/Plan (1) Acute hypoxemic respiratory failure: (2) Obesity (BMI 30-39.9): (3) Atrial fibrillation with rapid ventricular response: (4) COVID-19: PLAN: Acute hypoxemic respiratory failure secondary to SARS- COV 2 On 15 L at the emergency department his oxygen saturation was 87%. Patient with rales; tachypnea on examination. Required nonrebreather mask; BiPAP in the emergency department. Continue BiPAP/AIRVO Received Decadron at the emergency department and continued. Patient is not a candidate of remdesivir because of time of onset. Stop high-dose chloroquine. Positive rapid antigen Covid test at the ED.. D-dimer was elevated. Chest CTA was independently interpreted and I agree with radiologist interpretation. Lactic acid is 4.8 likely secondary to hypoxemia. AST and ALT elevated. Trend CMP. Lactose dehydrogenase and CK are also elevated. Admit intensive care unit and consult search engine optimization manager. Atrial fibrillation with rapid ventricular response. Place on intensive care unit on telemetry. Obtain echo [id number] 2 score is elevated. Lovenox 1 mg per kilogram subcutaneous every 12 hours Cardizem drip for rate control. For rate control. Of note patient is on metoprolol at home. Reportedly he takes metoprolol 5 mg p.o. twice daily which does not seem right. Family to update on appropriate metoprolol dose. Potassium is 4.1. Check magnesium Diabetes mellitus Patient with hyperglycemia on presentation Home Metformin held. Glipizide continued. Continue correction scale insulin ordered. Hypertension Losartan continued. Patient on Cardizem drip for A. fib. Trend blood pressure and adjust blood pressure medications. BPH: Flomax continued. BMI: 30.5. Complicates care. Lifestyle modification recommended. DVT prophylaxis: Not indicated since patient has been started on Lovenox. Charges/Coding Visit Charges Inpatient E&M: 95064 Init Hosp L3
[2020-12-08 02:15] LABS: Reflex Lactate? Y
[2020-12-08 04:10] LABS: Lactic Acid 5.6 mmol/L (0.4-1.9)
--- NOTE | 2020-12-08 04:11 | ECHOL_ITS ---
Reason For Study: AFIB/FLUTTER Procedure This was a limited 2D transthoracic echocardiogram. The study was technically difficult. Exam performed portable in ICU/CCU. The exam was abbreviated due to the COVID 19 protocol. FULL echocardiogram performed 11/14/2020. Left Ventricle Normal left ventricle. The estimated ejection fraction is EF 55-60 %. Right Ventricle Normal right ventricle. Normal systolic function. Atria Normal left atrium. Normal right atrium. Mitral Valve The mitral valve is structurally normal. No prolapse or stenosis seen. Tricuspid Valve Normal tricuspid valve. Aortic Valve Normal Function of Bioprothetic AV. Pulmonic Valve The pulmonic valve is not well visualized. Great Vessels Mildly dilated aortic root. Pericardium/Pleural No pericardial effusion. MMode/2D Measurements & Calculations LVIDd: 5.5 cm IVSd: 1.1 cm Ao root diam: 4.1 cm LVIDs: 3.5 cm LVPWd: 1.0 cm FS: 35.8 % LAV(MOD-bp): 76.7 ml LVAd ap4: 28.9 cm2 LVAd ap2: 22.8 cm2 LAV(MOD-bp) Indexed: 32.9 ml/m2 LVLd ap4: 7.4 cm LVLd ap2: 7.1 cm LAV(MOD-sp2): 66.5 ml EDV(MOD-sp4): 95.9 ml EDV(MOD-sp2): 62.1 ml LAV(MOD-sp4): 66.6 ml EDV(sp4-el): 96.5 ml EDV(sp2-el): 62.1 ml LVAs ap4: 18.4 cm2 LVAs ap2: 13.9 cm2 LVLs ap4: 6.6 cm LVLs ap2: 5.6 cm ESV(MOD-sp4): 44.9 ml ESV(MOD-sp2): 29.7 ml ESV(sp4-el): 43.5 ml ESV(sp2-el): 29.3 ml EF(MOD-sp4): 53.2 % EF(MOD-sp2): 52.1 % EF(sp4-el): 54.9 % SV(MOD-sp4): 51.0 ml SV(MOD-sp2): 32.4 ml SV(sp4-el): 52.9 ml LA dimension(2D): 4.1 cm LA A4 area: 22.4 cm2 ECHO/Echo, Limited Study Interpretation Summary The estimated ejection fraction is EF 55-60 %. Normal LV systolic Function Normal function of Bioprothetic AV No significant change from prior echo Ordering Physician: Brandyn Xiao Referring Physician: Guanako Brownlee Performed By: Mimi Naik RDCS, RVT
[2020-12-08] MEDS: Insulin Lispro 100 UNIT/ML INSULN.PEN SC ×3 (04:47→20:37)
[2020-12-08 05:02] LABS: Absolute Lymphocyte Count 1.08 X10^3/uL (0.83-4.51); Absolute Neutrophil Count 14.5 X10^3/uL (2.0-7.7); Basophil# 0.04 X10^3/uL; Basophil% 0.3 % (0-1); Hematocrit 41.3 % (40-54); Hemoglobin 14.9 g/dL (13.0-16.5); Lymphocyte # 1.08 X10^3/ul (0.83-4.51); Lymphocyte % 6.8 % (19-41); Mean Corp Hgb Conc 36.1 g/dL (32-36); Mean Corpuscular Hgb 30.6 pg (27.0-32.0); Mean Corpuscular Volume 84.8 fL (80-94); Mean Platelet Vol. 10.9 fl (6.2-12.0); Monocyte# 0.19 X10^3/uL; Monocyte% 1.2 % (0-10); NRBC Flagged by Analyzer 0 % (0-5); Neutrophil # 14.46 X10^3/uL (2.7-7.7); Neutrophil % 90.3 % (47-70); POSITIVE MORPHOLOGY YES; Platelet Count 256 K/mm3 (150-450); RBC Distribution Width CV 12.9 % (11.6-14.6); RBC Distribution Width SD 40.3 fl (35.1-43.9); Red Blood Count 4.87 M/mm3 (4.6-6.2)
[2020-12-08 05:10] LABS: Differential Indicated SCAN CRITERIA MET
[2020-12-08 05:30] LABS: Procalcitonin 0.33 ng/mL (0.00-0.09)
[2020-12-08 05:34] LABS: ALB/GLOB Ratio 0.4 RATIO (0.9-2.4); AST(SGOT) 105 U/L (15-37); Alanine Aminotransfer ALT/SGPT 114 U/L (16-61); Albumin, Serum 1.9 g/dL (3.2-5.0); Alkaline Phosphatase 80 U/L (45-117); Anion Gap 15 (5-15); BUN 34 mg/dL (7-18); BUN/Creat Ratio 23.4 RATIO (10-20); Calcium,Total 8.3 mg/dL (8.5-10.1); Chloride 92 mmol/L (98-107); Creatinine, Serum 1.45 mg/dL (0.70-1.30); EST Glomerular Filtration Rate 51 mL/min (>60); Est Glom Filt Rate - Afr Amer 61 mL/min (>60); Estimated Creatinine Clearance 52.75 ml/min; Globulin 4.4 g/dL (2.2-4.2); Glucose 223 mg/dL (74-106); Potassium 4.4 mmol/L (3.5-5.1); Protein, Total 6.3 g/dL (6.4-8.2); Sodium Level 126 mmol/L (136-145); Thyroid Stim Hormone (TSH) 1.55 uIU/mL (0.358-3.74)
--- NOTE | 2020-12-08 07:21 | VDLE_ITS ---
Reason For Study: elevated D-Dimer RIGHT LEFT GSV is normal. GSV is normal. Short segment of the SSV is dilated and CFV is compressible. noncompressible. FV is compressible. CFV is compressible. POP V is compressible. FV is compressible. T/P Trunk is compressible. POP V is compressible. PTV is compressible. T/P Trunk is compressible. LT PerV is compressible. PTV is compressible. RT PerV is compressible. Procedure This is a venous duplex using B-mode, color flow and spectral Doppler. Exam performed portable in ICU/CCU. The exam was abbreviated due to the COVID 19 protocol. The exam was diagnostic. A preliminary report was called and/or faxed to Dr. Minor. VL/Venous Duplex US - Moses Extrem Interpretation Summary No evidence for acute deep venous thrombosis bilateral lower extremities Superficial thrombophlebitis right small saphenous vein--short segment Patent compressible bilateral great saphenous veins Abreviated Covid 19 protocol Ordering Physician: Toño Minor Performed By: Yariel Kemp RVT
--- NOTE | 2020-12-08 07:48 | PN.HOSP_ITS ---
Subjective Subjective Follow-up on acute failure/acute COVID-19 pneumonia. Patient was seen and examined. He remains on BiPAP. He denied any fever or chills. Cardiac symptoms ongoing for 2 weeks. Objective Data Objective Data Vital Signs: Vital Signs Temp Pulse Resp BP Pulse Ox 97.8 F 74 30 H 87/54 L 96 12/08/20 06:00 12/08/20 07:00 12/08/20 07:00 12/08/20 07:00 12/08/20 07:20 Oxygen Flow Rate (L/min) 60 Oxygen Delivery Method Airvo Weight: 107.9 kg Body Mass Index (BMI) 30.5 Intake & Output: Intake and Output for Last 24 Hours 12/06/20 12/07/20 12/08/20 23:59 23:59 23:59 Intake Total 7.58 / 7.58 64.92 / 64.92 Output Total 150 / 150 Balance 7.58 / 7.58 -85.08 / -85.08 Lab / Micro Data Result Diagrams: 12/08/20 04:50 12/08/20 04:50 Labs: Laboratory Results - last 24 hr 12/07/20 21:35: WBC 15.4 H, RBC 5.15, Hgb 15.7, Hct 43.7, MCV 84.9, MCH 30.5, MCHC 35.9, RDW Std Deviation 39.7, RDW Coeff of Anabella 12.9, Plt Count 290, MPV 10.9, Immature Gran % (Auto) 1.600 H, Neut % (Auto) 86.0 H, Lymph % (Auto) 8.3 L , Orange % (Auto) 2.5, Eos % (Auto) 1.3, Baso % (Auto) 0.3, Absolute Neuts (auto) 13.2 H, Absolute Lymphs (auto) 1.27, Nucleated RBC % 0, Differential Comment SCANNED, Diff Path Review June12/07/20 21:35: Fibrinogen 506 H, D-Dimer Quant (PE/DVT) 12.53 H* 12/07/20 21:35: Sodium 124 L, Potassium 4.1, Chloride 92 L, Carbon Dioxide 18.0 L, Anion Gap 14, BUN 30 H, Creatinine 1.19, Estim Creat Clear Calc 60.68, Est GFR (MDRD) Af Amer 77, Est GFR (MDRD) Non-Af 64, BUN/Creatinine Ratio 25.2 H, Glucose 169 H, Calcium 8.8, Magnesium 1.7, Total Bilirubin 1.10 H, AST 150 H, ALT 136 H, Alkaline Phosphatase 90, Lactate Dehydrogenase 724 H, Total Creatine Kinase 865 H, Troponin I High Sens 16, C-React Prot Ext Range 186.00 H, Total Protein 7.1, Albumin 2.3 L, Globulin 4.8 H, Albumin/Globulin Ratio 0.5 L 12/07/20 21:35: Lactic Acid 4.8 H* 12/07/20 21:35: B-Natriuretic Peptide 41.3 12/07/20 21:35: Procalcitonin 0.17 H 12/08/20 03:20: Lactic Acid 5.6 H* 12/08/20 04:50: Procalcitonin 0.33 H 12/08/20 04:50: WBC 16.0 H, RBC 4.87, Hgb 14.9, Hct 41.3, MCV 84.8, MCH 30.6, M CHC 36.1 H, RDW Std Deviation 40.3, RDW Coeff of Anabella 12.9, Plt Count 256, MPV 10.9, Immature Gran % (Auto) 1.400 H, Neut % (Auto) 90.3 H, Lymph % (Auto) 6.8 L , Orange % (Auto) 1.2, Eos % (Auto) 0.0, Baso % (Auto) 0.3, Absolute Neuts (auto) 14.5 H, Absolute Lymphs (auto) 1.08, Nucleated RBC % 0 12/08/20 04:50: Sodium 126 L, Potassium 4.4, Chloride 92 L, Carbon Dioxide 19.0 L, Anion Gap 15, BUN 34 H, Creatinine 1.45 H, Estim Creat Clear Calc 52.75, Est GFR (MDRD) Af Amer 61, Est GFR (MDRD) Non-Af 51 L, BUN/Creatinine Ratio 23.4 H, Glucose 223 H, Calcium 8.3 L, Total Bilirubin 1.10 H, AST 105 H, ALT 114 H, Alkaline Phosphatase 80, Total Protein 6.3 L, Albumin 1.9 L, Globulin 4.4 H, Albumin/Globulin Ratio 0.4 L, TSH 1.55 Micro: Microbiology 12/07/20 21:42 Nasal Secretion SARS-CoV-2 Antigen (Rapid) - Final SARS-CoV-2 (COVID 19) Radiography Diagnostic Testing: Radiology Impression Chest CTA 12/07/20 22:06 IMPRESSION: Normal CTA chest examination, without a demonstrated pulmonary embolism or arterial dissection. Diffuse COVID pneumonia Electronically Signed: Karthikeyan Coulter DO at 0:17 EDT Tel , Service support , Physical Exam Narrative Physical exam: General: Alert oriented x3, comfortable, on BiPAP Head: Atraumatic Eyes: PERRLA, EOMI ENT, moist oral mucosa Neck: Supple CVS: Heart sounds 1 and 2, irregular, no murmurs heard Respiratory : Diminished, no wheezes heard Abdomen: Soft, nontender, nondistended, normal bowel sounds Extremities: No edema Assessment & Plan Assessment/Plan (1) Acute hypoxemic respiratory failure: (2) Obesity (BMI 30-39.9): (3) Atrial fibrillation with rapid ventricular response: (4) COVID-19: PLAN: 1. Acute hypoxemic respiratory failure secondary to acute COVID-19 pneumonia Patient is on BiPAP. CTA of the chest negative for acute PE, showed diffuse Covid Continue on IV Decadron, breathing treatment 2. Atrial fibrillation with rapid ventricular response, heart rate better controlled, Will resume on home metoprolol 50 mg daily, wean off Cardizem drip Continue on therapeutic Lovenox, 2D echo continue on Cardizem drip Magnesium admission was 1.7, will recheck 3. Diabetes mellitus, blood sugars are fairly uncontrolled secondary to steroids Hold Metformin and glipizide held Continue with blood glucose checks with insulin sliding scale 4. Hypertension, will hold losartan 5. Rest of chronic medical conditions are stable?BPH, obesity 6. DVT prophylaxis?on therapeutic Lovenox Charges/Coding Visit Charges Inpatient E&M: 18433 Subs Hosp L3
[2020-12-08 08:06] LABS: Bedside Glucose 243 mg/dL (70-110)
--- NOTE | 2020-12-08 08:28 | EX.PCM.CONCC ---
Assessment & Plan Assessment/Plan (1) COVID-19: (2) Acute hypoxemic respiratory failure: (3) Atrial fibrillation with rapid ventricular response: (4) H/O aortic valve replacement: (5) Type 2 diabetes mellitus: PLAN: RECOMMENDATIONS: 1. No Remdesivir or baricitinib secondary to delayed presentation 2. Agree with Decadron therapy 3. Aggressive control of blood sugars given steroids in the setting of diabetes 4. Discontinue glipizide. Add Lantus 5. Patient is a full CODE STATUS. IMPRESSIONS: 1. Acute hypoxic respiratory failure secondary to COVID-19 Patient appears to be doing okay on Airvo. Intolerance of BiPAP makes intubation more likely. Patient also is unvaccinated and delayed in presentation, so treatment options are limited. Patient will be placed on Decadron therapy. Patient would not be a candidate for baricitinib or Remdesivir in my opinion. Did confirm patient is a full code. Will attempt to diuresis patient labs allow. Anticipate elevated lactate secondary to global hypoxemia. 2. A. fib with RVR/history of aortic valve replacement Patient appears to be doing okay at this time. We will continue to rate control. Patient has not been able to tolerate anticoagulation in the past, but given elevated D-dimer, there is some concern for coagulopathy. Patient will have lower extremity Dopplers to evaluate for DVT. 3. Essential hypertension/hyperlipidemia/type 2 diabetes mellitus/advanced age/obesity/delayed presentation/nonvaccinated status Complicates care, management, recovery and prognosis. Anticipate aggressive insulin therapy will be required to control hyperglycemia. Blood pressures appear to be appropriate when heart rate is controlled. HPI Consult Data Date of Consult: 12/08/20 HPI Narrative HPI Narrative: IDRIS DUDLEY is a 75 M, with past medical history listed below, who presents to [facility] on 12/07/2020 secondary to hypoxia and shortness of breath. Patient reportedly has had Covid type symptoms for 12 days and was noted to have oxygen levels at 85% at home. Patient had been treated with doxycycline, dexamethasone and hydroxychloroquine. Patient is unvaccinated against COVID-19. Patient does have a history of A. fib, but has not been able to tolerate anticoagulation secondary to recurrent epistaxis. In the ER, patient was afebrile, but tachycardic as high as 160 bpm. Patient was also hypertensive at 162/99 and tachypneic at 40 breaths/min. Patient was placed on a nonrebreather with improvement in saturations to 91%. This did help with tachycardia and hypertension. Patient was attempted on a BiPAP, but was unable to tolerate. Laboratory work-up showed a leukocytosis of 15.4, hemoglobin of 15.7, elevated D-dimer at 12.53, sodium of 124, chloride of 92, bicarb of 18 and elevated glucose of 169. Liver function studies were slightly elevated and a CRP was elevated at 186. Lactate was elevated at 4.8, but BNP was normal at 41. Procalcitonin was slightly elevated 0.17. Patient did have a CTA of the chest showing bilateral groundglass opacities without PE. Patient was given Cardizem and initiated on a drip for his tachycardia with improvement. Patient was then admitted to the intensive care unit for further evaluation. Since being in the intensive care unit, patient states he feels relatively unchanged compared to previous. Patient denies any current chest pain or abdominal pain. Patient states his dyspnea is slightly improved, but he is unable to tolerate any BiPAP or prone positioning. Patient does have a history of an aortic valve replacement, but is unclear of the type. Patient states he has not been able to tolerate anticoagulation in the past secondary to recurrent epistaxis. Patient does not use supplemental oxygen at baseline. Patient gives no history of tobacco use, COPD or asthma. Patient does not use any inhalers at baseline. Patient does state that he is willing to be intubated if it is necessary. Patient understands that lack of tolerance for BiPAP does increase the risk for this intervention. Review of systems otherwise negative from a constitutional, HEENT, respiratory, cardiovascular, GI, genitourinary, musculoskeletal, skin, neurologic, psychiatric and hematologic system unless stated above. [facility] Medical History Atrial fibrillation Essential (primary) hypertension Hyperlipidemia Obesity Rheumatic aortic stenosis SVT (supraventricular tachycardia) Type 2 diabetes mellitus Home Medications aspirin 81 mg chewable tablet 162 mg PO .COMPLEX 02/05/17 [History Last Taken Unknown] glipizide 2.5 mg tablet, extended release 24 hr 2.5 mg PO DAILY #90 tab 05/18/20 [Rx Last Taken Unknown] losartan 100 mg tablet 100 mg PO DAILY #90 tab 07/13/20 [Rx Last Taken Unknown] tamsulosin 0.4 mg capsule 0.4 mg PO QHS #90 cap 07/13/20 [Rx Last Taken Unknown] hydroxychloroquine 200 mg PO BID 12/07/20 [History Last Taken Unknown] metformin 1,500 mg PO 12/07/20 [History Last Taken Unknown] metoprolol succinate [Toprol XL] 5 mg PO BID 12/07/20 [History Last Taken Unknown] Allergy/AdvReac Type Severity Reaction Status Date / Time lisinopril AdvReac cough Verified 12/07/20 21:35 Family History Sister Heart disease Mother Cancer Surgical History H/O aortic valve replacement (08/2013) History of cholecystectomy History of left heart catheterization (08/17/13) History of radiofrequency ablation procedure for cardiac arrhythmia (04/29/03) Social History (Updated 12/08/20 @ 02:54 by Shine Diaz) adopted: No household members: spouse housing: house number of children: 10 financial difficulty paying for basics: not very hard service: No current occupational status: retired current occupational exposures/hazards: No pets and animals: No Smoking Status: Never smoker alcohol intake: never substance use type: does not use what type of physical activity do you participate in: none ROS ROS Narrative See HPI Physical Exam Const alert and oriented x3 Constitutional Narrative: On Airvo. Mild conversational dyspnea. General Appearance: cooperative and well developed HEENT normocephalic, head/scalp atraumatic and moist oral mucous membranes Eyes PERRL and EOMs intact bilaterally Neck full ROM and no lymphadenopathy Chest inspection of chest normal Chest: symmetrical chest wall rise; Negative for crepitus Resp Auscultation: diminished lung sounds; Negative for rales, rhonchi or wheezes Percussion: Negative for dullness Cardio regular rate, S1 normal heart sound, S2 normal heart sound, no murmurs, no rub and no gallops Rhythm: abnormal rhythm irregularly irregular GI normal to inspection, nondistended, normoactive bowel sounds no CVA tenderness Extremity no clubbing, cyanosis or edema Skin no rashes or lesions noted Neuro oriented x3, CN's II-XII intact bilaterally, moves all extremities and no focal motor deficits Psych cooperative and affect normal Lab / Micro Data Result Diagrams: 12/08/20 04:50 12/08/20 04:50 Labs: Laboratory Results - last 24 hr 12/07/20 21:35: WBC 15.4 H, RBC 5.15, Hgb 15.7, Hct 43.7, MCV 84.9, MCH 30.5, MCHC 35.9, RDW Std Deviation 39.7, RDW Coeff of Anabella 12.9, Plt Count 290, MPV 10.9, Immature Gran % (Auto) 1.600 H, Neut % (Auto) 86.0 H, Lymph % (Auto) 8.3 L, [place] % (Auto) 2.5, Eos % (Auto) 1.3, Baso % (Auto) 0.3, Absolute Neuts (auto) 13.2 H, Absolute Lymphs (auto) 1.27, Nucleated RBC % 0, Differential Comment SCANNED, Diff Path Review June12/07/20 21:35: Fibrinogen 506 H, D-Dimer Quant (PE/DVT) 12.53 H* 12/07/20 21:35: Sodium 124 L, Potassium 4.1, Chloride 92 L, Carbon Dioxide 18.0 L, Anion Gap 14, BUN 30 H, Creatinine 1.19, Estim Creat Clear Calc 60.68, Est GFR (MDRD) Af Amer 77, Est GFR (MDRD) Non-Af 64, BUN/Creatinine Ratio 25.2 H, Glucose 169 H, Calcium 8.8, Magnesium 1.7, Total Bilirubin 1.10 H, AST 150 H, ALT 136 H, Alkaline Phosphatase 90, Lactate Dehydrogenase 724 H, Total Creatine Kinase 865 H, Troponin I High Sens 16, C-React Prot Ext Range 186.00 H, Total Protein 7.1, Albumin 2.3 L, Globulin 4.8 H, Albumin/Globulin Ratio 0.5 L 12/07/20 21:35: Lactic Acid 4.8 H* 12/07/20 21:35: B-Natriuretic Peptide 41.3 12/07/20 21:35: Procalcitonin 0.17 H 12/08/20 03:20: Lactic Acid 5.6 H* 12/08/20 04:46: POC Glucose 243 H 12/08/20 04:50: Procalcitonin 0.33 H 12/08/20 04:50: WBC 16.0 H, RBC 4.87, Hgb 14.9, Hct 41.3, MCV 84.8, MCH 30.6, MCHC 36.1 H, RDW Std Deviation 40.3, RDW Coeff of Anabella 12.9, Plt Count 256, MPV 10.9, Immature Gran % (Auto) 1.400 H, Neut % (Auto) 90.3 H, Lymph % (Auto) 6.8 L, Flag[place] % (Auto) 1.2, Eos % (Auto) 0.0, Baso % (Auto) 0.3, Absolute Neuts (auto) 14.5 H, Absolute Lymphs (auto) 1.08, Nucleated RBC % 0 12/08/20 04:50: Sodium 126 L, Potassium 4.4, Chloride 92 L, Carbon Dioxide 19.0 L, Anion Gap 15, BUN 34 H, Creatinine 1.45 H, Estim Creat Clear Calc 52.75, Est GFR (MDRD) Af Amer 61, Est GFR (MDRD) Non-Af 51 L, BUN/Creatinine Ratio 23.4 H, Glucose 223 H, Calcium 8.3 L, Total Bilirubin 1.10 H, AST 105 H, ALT 114 H, Alkaline Phosphatase 80, Total Protein 6.3 L, Albumin 1.9 L, Globulin 4.4 H, Albumin/Globulin Ratio 0.4 L, TSH 1.55 Micro: Microbiology 12/07/20 21:42 Nasal Secretion SARS-CoV-2 Antigen (Rapid) - Final SARS-CoV-2 (COVID 19) Radiology Impression Chest CTA 12/07/20 22:06 IMPRESSION: Normal CTA chest examination, without a demonstrated pulmonary embolism or arterial dissection. Diffuse COVID pneumonia Electronically Signed: Karthikeyan Coulter DO at 0:17 EDT Tel , Service support , Charges/Coding Visit Charges Inpatient E&M: 91048 Init Hosp L3
[2020-12-08] MEDS: Aspirin 81 MG TAB.CHEW 162 MG PO (09:37)
[2020-12-08] MEDS: Losartan Potassium 100 MG Tablet PO (09:38)
[2020-12-08] MEDS: dexAMETHasone 10 MG/ML Vial 6 MG IV (09:38)
[2020-12-08] MEDS: guaiFENesin 600 MG Tablet PO ×2 (09:38→20:36)
[2020-12-08] MEDS: 0.9% Saline Lock 10 ML Syringe IV (09:39)
[2020-12-08 11:40] LABS: Magnesium 1.8 mg/dL (1.6-2.6)
[2020-12-08 13:46] LABS: Bedside Glucose 256 mg/dL (70-110)
--- NOTE | 2020-12-08 15:53 | CASEMGMT ---
Patient currently on Bipap. RN CM attempted to call Lily to complete RN CM assessment. No answer, voice message left with return contact information.
[2020-12-08 16:06] LABS: Bedside Glucose 203 mg/dL (70-110)
[2020-12-08] MEDS: Tamsulosin HCl 0.4 MG Capsule PO (20:36)
[2020-12-08] MEDS: Acetaminophen 325 MG Tablet 650 MG PO (20:47)
[2020-12-08 21:01] LABS: Bedside Glucose 362 mg/dL (70-110)
[2020-12-09] VITALS (36 sets, daily range): BP systolic 107–160; BP diastolic 53–109; PULSE 71–109; RESP 12–68; TEMP 35.6–36.6; O2SAT 83–99
[2020-12-09] MEDS: Insulin Lispro 100 UNIT/ML INSULN.PEN SC ×4 (00:55→17:25)
[2020-12-09 01:06] LABS: Bedside Glucose 428 mg/dL (70-110)
[2020-12-09 06:32] LABS: Absolute Lymphocyte Count 1.15 X10^3/uL (0.83-4.51); Absolute Neutrophil Count 13.8 X10^3/uL (2.0-7.7); Basophil# 0.02 X10^3/uL; Basophil% 0.1 % (0-1); Hematocrit 42.5 % (40-54); Hemoglobin 15.5 g/dL (13.0-16.5); Lymphocyte # 1.15 X10^3/ul (0.83-4.51); Lymphocyte % 7.5 % (19-41); Mean Corp Hgb Conc 36.5 g/dL (32-36); Mean Corpuscular Hgb 30.8 pg (27.0-32.0); Mean Corpuscular Volume 84.3 fL (80-94); Mean Platelet Vol. 10.7 fl (6.2-12.0); Monocyte# 0.21 X10^3/uL; Monocyte% 1.4 % (0-10); NRBC Flagged by Analyzer 0 % (0-5); Neutrophil # 13.78 X10^3/uL (2.7-7.7); Neutrophil % 90.1 % (47-70); POSITIVE MORPHOLOGY YES; Platelet Count 328 K/mm3 (150-450); RBC Distribution Width CV 13.1 % (11.6-14.6); Red Blood Count 5.04 M/mm3 (4.6-6.2); White Blood Count 15.3 K/mm3 (4.4-11.0)
[2020-12-09 06:34] LABS: Differential Indicated SCAN CRITERIA MET
[2020-12-09 06:48] LABS: ALB/GLOB Ratio 0.4 RATIO (0.9-2.4); AST(SGOT) 90 U/L (15-37); Alanine Aminotransfer ALT/SGPT 118 U/L (16-61); Albumin, Serum 2.2 g/dL (3.2-5.0); Alkaline Phosphatase 102 U/L (45-117); Anion Gap 12 (5-15); BUN 45 mg/dL (7-18); BUN/Creat Ratio 34.1 RATIO (10-20); Calcium,Total 9.3 mg/dL (8.5-10.1); Chloride 98 mmol/L (98-107); Creatinine, Serum 1.32 mg/dL (0.70-1.30); EST Glomerular Filtration Rate 56 mL/min (>60); Est Glom Filt Rate - Afr Amer 68 mL/min (>60); Estimated Creatinine Clearance 57.95 ml/min; Glucose 285 mg/dL (74-106); Protein, Total 7.2 g/dL (6.4-8.2); Sodium Level 130 mmol/L (136-145)
--- NOTE | 2020-12-09 07:11 | PN.CC_ITS ---
Assessment & Plan Assessment/Plan (1) COVID-19: (2) Acute hypoxemic respiratory failure: (3) Atrial fibrillation with rapid ventricular response: (4) H/O aortic valve replacement: (5) Type 2 diabetes mellitus: PLAN: RECOMMENDATIONS: 1. No Remdesivir or baricitinib secondary to delayed presentation 2. Continue with Decadron therapy (12/18/2020) 3. Aggressive control of blood sugars given steroids in the setting of diabetes 4. Possibly transition to Lantus twice daily if blood sugar stay elevated 5. BiPAP rescue as needed during the day and with sleep IMPRESSIONS: 1. Acute hypoxic respiratory failure secondary to COVID-19 Patient appears to be doing okay on Airvo. Patient was able to tolerate BiPAP overnight, which does help his overall situation. Patient is unvaccinated and delayed in presentation, so treatment options are limited. Patient will be continued on Decadron therapy through 12/18/2020. Patient would not be a candidate for baricitinib or Remdesivir in my opinion. Will attempt to diuresis patient labs allow. 2. A. fib with RVR/history of aortic valve replacement Patient appears to be doing okay at this time. We will continue to rate control. Patient appears to be tolerating full anticoagulation at this time. Lower extremity Dopplers did not show a DVT. 3. Essential hypertension/hyperlipidemia/type 2 diabetes mellitus/advanced age/obesity/delayed presentation/nonvaccinated status Complicates care, management, recovery and prognosis. Anticipate aggressive insulin therapy will be required to control hyperglycemia. Blood pressures appear to be appropriate when heart rate is controlled. Subjective Subjective The patient did okay overnight. The patient was able to tolerate BiPAP while sleeping, but is currently on Airvo. Patient subjectively feels unchanged compared to previous. Patient does have a cough that is intermittently producti ve. No bleeding complications have been reported. Objective Data Objective Data Vital Signs: Vital Signs Temp Pulse Resp BP Pulse Ox 36.6 C 97 23 H 108/71 94 12/09/20 04:00 12/09/20 07:00 12/09/20 07:00 12/09/20 07:00 12/09/20 07:00 Oxygen Flow Rate (L/min) 60 Oxygen Delivery Method Airvo Weight: 106.6 kg Body Mass Index (BMI) 30.5 Intake & Output: Intake and Output for Last 24 Hours 12/07/20 12/08/20 12/09/20 23:59 23:59 23:59 Intake Total 7.58 / 7.58 623.84 / 623.84 Output Total 150 / 150 1200 / 1200 Balance 7.58 / 7.58 473.84 / 473.84 -1200 / -1200 Lab / Micro Data Result Diagrams: 12/09/20 06:20 12/09/20 06:20 Labs: Laboratory Results - last 24 hr 12/07/20 21:33: POC Glucose 203 H 12/08/20 04:46: POC Glucose 243 H 12/08/20 04:50: Magnesium 1.8 12/08/20 13:37: POC Glucose 256 H 12/08/20 20:33: POC Glucose 362 H 12/09/20 00:54: POC Glucose 428 H 12/09/20 06:20: WBC 15.3 H, RBC 5.04, Hgb 15.5, Hct 42.5, MCV 84.3, MCH 30.8, MCHC 36.5 H, RDW Std Deviation 40.0, RDW Coeff of Anabella 13.1, Plt Count 328, MPV 10.7, Immature Gran % (Auto) 0.900, Neut % (Auto) 90.1 H, Lymph % (Auto) 7.5 L, [place] % (Auto) 1.4, Eos % (Auto) 0.0, Baso % (Auto) 0.1, Absolute Neuts (auto) 13.8 H, Absolute Lymphs (auto) 1.15, Nucleated RBC % 0 12/09/20 06:20: Sodium 130 L, Potassium 4.0, Chloride 98, Carbon Dioxide 20.0 L, Anion Gap 12, BUN 45 H, Creatinine 1.32 H, Estim Creat Clear Calc 57.95, Est GFR (MDRD) Af Amer 68, Est GFR (MDRD) Non-Af 56 L, BUN/Creatinine Ratio 34.1 H, Glucose 285 H, Calcium 9.3, Total Bilirubin 0.90, AST 90 H, ALT 118 H, Alkaline Phosphatase 102, Total Protein 7.2, Albumin 2.2 L, Globulin 5.0 H, Albumin/Globulin Ratio 0.4 L Micro: Microbiology 12/07/20 21:42 Nasal Secretion SARS-CoV-2 Antigen (Rapid) - Final SARS-CoV-2 (COVID 19) Radiography Diagnostic Testing: Radiology Impression Venous Doppler Study 12/08/20 07:21 Interpretation Summary No evidence for acute deep venous thrombosis bilateral lower extremities Superficial thrombophlebitis right small saphenous vein--short segment Patent compressible bilateral great saphenous veins Abreviated Covid 19 protocol Ordering Physician: Toño Minor Performed By: Yariel Kemp RVCelina Physical Exam Const alert and oriented x3 Constitutional Narrative: On Airvo at 95% FiO2. Mild conversational dyspnea. General Appearance: cooperative and well developed HEENT normocephalic, head/scalp atraumatic and moist oral mucous membranes Eyes PERRL and EOMs intact bilaterally Neck full ROM and no lymphadenopathy Chest inspection of chest normal Chest: symmetrical chest wall rise; Negative for crepitus Resp Auscultation: diminished lung sounds; Negative for rales, rhonchi or wheezes Percussion: Negative for dullness Cardio regular rate, S1 normal heart sound, S2 normal heart sound, no murmurs, no rub and no gallops Rhythm: abnormal rhythm irregularly irregular GI normal to inspection, nondistended, normoactive bowel sounds no CVA tenderness Extremity no clubbing, cyanosis or edema Skin no rashes or lesions noted Neuro oriented x3, CN's II-XII intact bilaterally, moves all extremities and no focal motor deficits Psych cooperative and affect normal Charges/Coding Visit Charges Inpatient E&M: 27667 Subs Hosp L3
[2020-12-09 07:13] LABS: Differential Comment SCANNED
[2020-12-09] MEDS: Furosemide 40 MG Tablet PO (08:01)
[2020-12-09 09:38] LABS: Pathologist Review Reviewed
[2020-12-09] MEDS: Enoxaparin 120 MG/0.8 ML Syringe 110 MG SC ×2 (10:22→20:32)
[2020-12-09] MEDS: Metoprolol(XL)Succ 50 MG Tablet PO (10:22)
[2020-12-09] MEDS: Aspirin 81 MG TAB.CHEW 162 MG PO (10:23)
[2020-12-09] MEDS: dexAMETHasone 10 MG/ML Vial 6 MG IV (10:23)
[2020-12-09] MEDS: guaiFENesin 600 MG Tablet PO ×2 (10:23→20:32)
--- NOTE | 2020-12-09 11:40 | CASEMGMT ---
RN CM Face to Face with patient for initial transition planning/care coordination assessment. RN CM introduced self and role at [facility]. Patient sitting in chair, alert and oriented. Patient willing to participate in assessment and is able to answer all questions appropriately. Care providers, pharmacy, and demographics verified. Patient wishes to discharge home, will monitor for need for home oxygen and HHC at discharge. Patient states he has no further needs or concerns at this time. CM to follow for discharge planning needs that may arise. PCP: Guanako Brownlee Specialists: Michael filter tender Preferred Pharmacy: [facility] retail Insurance: [employer] Prescription Benefit: none Living Will/HPOA: yes, Lily Rucker, LNOK: , son Living Arrangements: Patient lives with in a single story home with no steps to enter. Patient was independent at home prior to hospitalization. Patient has access to generator for electricity. Transportation: Driving service DME/HHC: Patient states he has walker at home. Patient has no preference for DME. Disposition Plan: Patient to discharge home with family support and follow-up plans in place. Will monitor for need for HHC and home oxygen Ratna REYES, RN, CM
[2020-12-09 12:30] LABS: Bedside Glucose 280 mg/dL (70-110)
--- NOTE | 2020-12-09 14:11 | PN.HOSP_ITS ---
Subjective Subjective Follow-up on acute failure/acute COVID-19 pneumonia: No acute events. Remains on Airvo. Objective Data Objective Data Vital Signs: Vital Signs Temp Pulse Resp BP Pulse Ox 96.5 F L 96 21 H 133/74 H 96 12/09/20 12:00 12/09/20 13:19 12/09/20 13:19 12/09/20 13:00 12/09/20 13:19 Oxygen Flow Rate (L/min) 60 Oxygen Delivery Method Airvo Weight: 106.6 kg Body Mass Index (BMI) 30.5 Intake & Output: Intake and Output for Last 24 Hours 12/07/20 12/08/20 12/09/20 23:59 23:59 23:59 Intake Total 7.58 / 7.58 623.84 / 623.84 Output Total 150 / 150 1660 / 1660 Balance 7.58 / 7.58 473.84 / 473.84 -1660 / -1660 Lab / Micro Data Result Diagrams: 12/09/20 06:20 12/09/20 06:20 Labs: Laboratory Results - last 24 hr 12/07/20 21:33: POC Glucose 203 H 12/07/20 21:35: Diff Path Review Reviewed 12/08/20 20:33: POC Glucose 362 H 12/09/20 00:54: POC Glucose 428 H 12/09/20 06:20: WBC 15.3 H, RBC 5.04, Hgb 15.5, Hct 42.5, MCV 84.3, MCH 30.8, MCHC 36.5 H, RDW Std Deviation 40.0, RDW Coeff of Anabella 13.1, Plt Count 328, MPV 10.7, Immature Gran % (Auto) 0.900, Neut % (Auto) 90.1 H, Lymph % (Auto) 7.5 L, Baker % (Auto) 1.4, Eos % (Auto) 0.0, Baso % (Auto) 0.1, Absolute Neuts (auto) 13.8 H, Absolute Lymphs (auto) 1.15, Nucleated RBC % 0, Differential Comment SCANNED 12/09/20 06:20: Sodium 130 L, Potassium 4.0, Chloride 98, Carbon Dioxide 20.0 L, Anion Gap 12, BUN 45 H, Creatinine 1.32 H, Estim Creat Clear Calc 57.95, Est GFR (MDRD) Af Amer 68, Est GFR (MDRD) Non-Af 56 L, BUN/Creatinine Ratio 34.1 H, Glucose 285 H, Calcium 9.3, Total Bilirubin 0.90, AST 90 H, ALT 118 H, Alkaline Phosphatase 102, Total Protein 7.2, Albumin 2.2 L, Globulin 5.0 H, Albumin/Globulin Ratio 0.4 L 12/09/20 07:58: POC Glucose 280 H Micro: Microbiology 12/07/20 21:42 Nasal Secretion SARS-CoV-2 Antigen (Rapid) - Final SARS-CoV-2 (COVID 19) Radiography Diagnostic Testing: Radiology Impression Echocardiogram 12/08/20 04:11 Interpretation Summary The estimated ejection fraction is EF 55-60 %. Normal LV systolic Function Normal function of Bioprothetic AV No significant change from prior echo ____ Ordering Physician: Brandyn Xiao Referring Physician: Guanako Brownlee Performed By: Mimi Naik, RDCS, RVT Venous Doppler Study 12/08/20 07:21 Interpretation Summary No evidence for acute deep venous thrombosis bilateral lower extremities Superficial thrombophlebitis right small saphenous vein--short segment Patent compressible bilateral great saphenous veins Abreviated Covid 19 protocol Ordering Physician: Toño Minor Performed By: Yariel Kemp RVT Physical Exam Narrative Physical exam: General: Alert oriented x3, comfortable, on Airvo/Bipap Head: Atraumatic Eyes: PERRLA, EOMI ENT, moist oral mucosa Neck: Supple CVS: Heart sounds 1 and 2, irregular, no murmurs heard Respiratory : Diminished, no wheezes heard Abdomen: Soft, nontender, nondistended, normal bowel sounds Extremities: No edema Assessment & Plan Assessment/Plan (1) Acute hypoxemic respiratory failure: (2) Obesity (BMI 30-39.9): (3) Atrial fibrillation with rapid ventricular response: (4) COVID-19: PLAN: 1. Acute hypoxemic respiratory failure secondary to acute COVID-19 pneumonia Patient is on BiPAP. CTA of the chest negative for acute PE, showed diffuse Covid Continue on IV Decadron, breathing treatment 2. Atrial fibrillation with rapid ventricular response, heart rate better controlled, Will increase metoprolol to 75 mg daily, wean off Cardizem drip Will transition to Eliquis 3. Hypomagnesemia, replace, recheck in a.m. 3. Diabetes mellitus, blood sugars are fairly uncontrolled secondary to steroids Hold Metformin and glipizide held Continue with Lantus and blood glucose checks with insulin sliding scale 4. Hypertension, will hold losartan,continue to monitor 5. Rest of chronic medical conditions are stable?BPH, obesity 6. DVT prophylaxis?on therapeutic Lovenox Charges/Coding Visit Charges Inpatient E&M: 32500 Subs Hosp L2
[2020-12-09 15:25] LABS: Bedside Glucose 288 mg/dL (70-110)
[2020-12-09 19:11] LABS: Bedside Glucose 329 mg/dL (70-110)
[2020-12-09] MEDS: MELATONIN 3 MG TABLET PO (20:32)
[2020-12-09] MEDS: Tamsulosin HCl 0.4 MG Capsule PO (20:32)
[2020-12-10] VITALS (33 sets, daily range): BP systolic 104–150; BP diastolic 61–106; PULSE 60–101; RESP 12–33; TEMP 36.1–37.3; O2SAT 65–99
[2020-12-10] MEDS: Insulin Lispro 100 UNIT/ML INSULN.PEN SC ×5 (00:29→21:31)
[2020-12-10 00:36] LABS: Bedside Glucose 342 mg/dL (70-110)
[2020-12-10 05:25] LABS: Absolute Lymphocyte Count 0.49 X10^3/uL (0.83-4.51); Absolute Neutrophil Count 6.4 X10^3/uL (2.0-7.7); Basophil# 0.02 X10^3/uL; Basophil% 0.3 % (0-1); Hematocrit 39.8 % (40-54); Lymphocyte # 0.49 X10^3/ul (0.83-4.51); Mean Corp Hgb Conc 35.2 g/dL (32-36); Mean Corpuscular Hgb 30.5 pg (27.0-32.0); Mean Corpuscular Volume 86.7 fL (80-94); Mean Platelet Vol. 11.1 fl (6.2-12.0); Monocyte% 1.4 % (0-10); NRBC Flagged by Analyzer 0 % (0-5); Neutrophil # 6.35 X10^3/uL (2.7-7.7); Neutrophil % 90.3 % (47-70); POSITIVE DIFFERENTIAL YES; POSITIVE MORPHOLOGY YES; Platelet Count 270 K/mm3 (150-450); RBC Distribution Width SD 41.2 fl (35.1-43.9); Red Blood Count 4.59 M/mm3 (4.6-6.2)
[2020-12-10 05:30] LABS: Differential Indicated SCAN CRITERIA MET
[2020-12-10 05:47] LABS: ALB/GLOB Ratio 0.4 RATIO (0.9-2.4); AST(SGOT) 101 U/L (15-37); Alanine Aminotransfer ALT/SGPT 140 U/L (16-61); Albumin, Serum 1.9 g/dL (3.2-5.0); Alkaline Phosphatase 89 U/L (45-117); Anion Gap 8 (5-15); BUN 37 mg/dL (7-18); BUN/Creat Ratio 32.5 RATIO (10-20); Calcium,Total 9.2 mg/dL (8.5-10.1); Chloride 99 mmol/L (98-107); Creatinine, Serum 1.14 mg/dL (0.70-1.30); EST Glomerular Filtration Rate 67 mL/min (>60); Est Glom Filt Rate - Afr Amer 81 mL/min (>60); Globulin 4.4 g/dL (2.2-4.2); Glucose 259 mg/dL (74-106); Magnesium 2.1 mg/dL (1.6-2.6); Potassium 4.5 mmol/L (3.5-5.1); Protein, Total 6.3 g/dL (6.4-8.2); Sodium Level 134 mmol/L (136-145)
--- NOTE | 2020-12-10 06:45 | PN.CC_ITS ---
Assessment & Plan Assessment/Plan (1) COVID-19: (2) Acute hypoxemic respiratory failure: (3) Atrial fibrillation with rapid ventricular response: (4) H/O aortic valve replacement: (5) Type 2 diabetes mellitus: PLAN: RECOMMENDATIONS: 1. No Remdesivir or baricitinib secondary to delayed presentation 2. Continue with Decadron therapy (12/18/2020) 3. Aggressive control of blood sugars given steroids in the setting of diabetes 4. Transition to twice daily Lantus 5. BiPAP rescue as needed during the day and with sleep 6. Diuresis as tolerated to maintain euvolemia IMPRESSIONS: 1. Acute hypoxic respiratory failure secondary to COVID-19 Patient appears to be doing okay on Airvo. Patient was able to tolerate BiPAP overnight, which does help his overall situation. Patient is unvaccinated and delayed in presentation, so treatment options are limited. Patient will be continued on Decadron therapy through 12/18/2020. Patient would not be a candidate for baricitinib or Remdesivir in my opinion. Will attempt to diuresis patient labs allow. 2. A. fib with RVR/history of aortic valve replacement Patient appears to be doing okay at this time. We will continue to rate control. Patient appears to be tolerating full anticoagulation at this time. Lower extremity Dopplers did not show a DVT. 3. Essential hypertension/hyperlipidemia/type 2 diabetes mellitus/advanced age/obesity/delayed presentation/nonvaccinated status Complicates care, management, recovery and prognosis. Transition to twice daily Lantus therapy. Blood pressures appear to be appropriate when heart rate is controlled. Subjective Subjective Patient did okay overnight. Patient subjectively feels improved compared to previous. Patient was able to tolerate BiPAP with sleep and admits that he had better sleep. Patient is still requiring significant oxygen to maintain saturations. Rate has been controlled Objective Data Objective Data Vital Signs: Vital Signs Temp Pulse Resp BP Pulse Ox 36.6 C 62 27 H 150/106 H 95 12/10/20 04:00 12/10/20 05:20 12/10/20 05:20 12/10/20 05:00 12/10/20 05:20 Oxygen Flow Rate (L/min) 60 Oxygen Delivery Method Bi-pap Weight: 106.6 kg Body Mass Index (BMI) 30.5 Intake & Output: Intake and Output for Last 24 Hours 12/08/20 12/09/20 12/10/20 23:59 23:59 23:59 Intake Total 623.84 / 623.84 354 / 354 Output Total 150 / 150 2160 / 2460 1100 / 1100 Balance 473.84 / 473.84 -1806 / -2106 -1100 / -1100 Lab / Micro Data Result Diagrams: 12/10/20 05:05 12/10/20 05:05 Labs: Laboratory Results - last 24 hr 12/07/20 21:35: Diff Path Review Reviewed 12/09/20 06:20: Differential Comment SCANNED 12/09/20 06:20: Sodium 130 L, Potassium 4.0, Chloride 98, Carbon Dioxide 20.0 L, Anion Gap 12, BUN 45 H, Creatinine 1.32 H, Estim Creat Clear Calc 57.95, Est GFR (MDRD) Af Amer 68, Est GFR (MDRD) Non-Af 56 L, BUN/Creatinine Ratio 34.1 H, Glucose 285 H, Calcium 9.3, Total Bilirubin 0.90, AST 90 H, ALT 118 H, Alkaline Phosphatase 102, Total Protein 7.2, Albumin 2.2 L, Globulin 5.0 H, Albumin/Globulin Ratio 0.4 L 12/09/20 07:58: POC Glucose 280 H 12/09/20 12:29: POC Glucose 288 H 12/09/20 17:22: POC Glucose 329 H 12/10/20 00:27: POC Glucose 342 H 12/10/20 05:05: WBC 7.0, RBC 4.59 L, Hgb 14.0, Hct 39.8 L, MCV 86.7, MCH 30.5, MCHC 35.2, RDW Std Deviation 41.2, RDW Coeff of Anabella 13.0, Plt Count 270, MPV 11.1, Immature Gran % (Auto) 1.000 H, Neut % (Auto) 90.3 H, Lymph % (Auto) 7.0 L , [place] % (Auto) 1.4, Eos % (Auto) 0.0, Baso % (Auto) 0.3, Absolute Neuts (auto) 6.4, Absolute Lymphs (auto) 0.49 L, Nucleated RBC % 0 12/10/20 05:05: Sodium 134 L, Potassium 4.5, Chloride 99, Carbon Dioxide 27.0, Anion Gap 8, BUN 37 H, Creatinine 1.14, Estim Creat Clear Calc 67.10, Est GFR (MDRD) Af Amer 81, Est GFR (MDRD) Non-Af 67, BUN/Creatinine Ratio 32.5 H, Glucose 259 H, Calcium 9.2, Magnesium 2.1, Total Bilirubin 0.70, AST 101 H, ALT 140 H, Alkaline Phosphatase 89, Total Protein 6.3 L, Albumin 1.9 L, Globulin 4.4 H, Albumin/Globulin Ratio 0.4 L Micro: Microbiology 12/07/20 21:42 Nasal Secretion SARS-CoV-2 Antigen (Rapid) - Final SARS-CoV-2 (COVID 19) Radiography Diagnostic Testing: Radiology Impression Echocardiogram 12/08/20 04:11 Interpretation Summary The estimated ejection fraction is EF 55-60 %. Normal LV systolic Function Normal function of Bioprothetic AV No significant change from prior echo _ Ordering Physician: Brandyn Xiao Referring Physician: Guanako Brownlee Performed By: Mimi Naik, NIECY, RVT Physical Exam Const alert and oriented x3 Constitutional Narrative: On BiPAP. Mild conversational dyspnea. General Appearance: cooperative and well developed HEENT normocephalic, head/scalp atraumatic and moist oral mucous membranes Eyes PERRL and EOMs intact bilaterally Neck full ROM and no lymphadenopathy Chest inspection of chest normal Chest: symmetrical chest wall rise; Negative for crepitus Resp Auscultation: diminished lung sounds; Negative for rales, rhonchi or wheezes Percussion: Negative for dullness Cardio regular rate, S1 normal heart sound, S2 normal heart sound, no murmurs, no rub and no gallops Rhythm: abnormal rhythm irregularly irregular GI normal to inspection, nondistended, normoactive bowel sounds no CVA tenderness Extremity no clubbing, cyanosis or edema Skin no rashes or lesions noted Neuro oriented x3, CN's II-XII intact bilaterally, moves all extremities and no focal motor deficits Psych cooperative and affect normal Charges/Coding Visit Charges Inpatient E&M: 11209 Subs Hosp L3
[2020-12-10 06:50] LABS: Bedside Glucose 237 mg/dL (70-110)
[2020-12-10 07:07] LABS: Atypical Lymphocyte 1+ %; Differential Comment SCANNED
--- NOTE | 2020-12-10 07:57 | PCM.PN.HOSP ---
Subjective Subjective Follow-up on acute failure/acute COVID-19 pneumonia: Patient seen and examined. He remains on Airvo/Bipap. No new complains. Objective Data Objective Data Vital Signs: Vital Signs Temp Pulse Resp BP Pulse Ox 97.8 F 62 27 H 150/106 H 95 12/10/20 04:00 12/10/20 05:20 12/10/20 05:20 12/10/20 05:00 12/10/20 05:20 Oxygen Flow Rate (L/min) 60 Oxygen Delivery Method Bi-pap Weight: 106.6 kg Body Mass Index (BMI) 30.5 Intake & Output: Intake and Output for Last 24 Hours 12/08/20 12/09/20 12/10/20 23:59 23:59 23:59 Intake Total 623.84 / 623.84 354 / 354 Output Total 150 / 150 2160 / 2460 1100 / 1100 Balance 473.84 / 473.84 -1806 / -2106 -1100 / -1100 Lab / Micro Data Result Diagrams: 12/10/20 05:05 12/10/20 05:05 Labs: Laboratory Results - last 24 hr 12/07/20 21:35: Diff Path Review Reviewed 12/09/20 07:58: POC Glucose 280 H 12/09/20 12:29: POC Glucose 288 H 12/09/20 17:22: POC Glucose 329 H 12/10/20 00:27: POC Glucose 342 H 12/10/20 05:05: WBC 7.0, RBC 4.59 L, Hgb 14.0, Hct 39.8 L, MCV 86.7, MCH 30.5, MCHC 35.2, RDW Std Deviation 41.2, RDW Coeff of Anabella 13.0, Plt Count 270, MPV 11.1, Immature Gran % (Auto) 1.000 H, Neut % (Auto) 90.3 H, Lymph % (Auto) 7.0 L, [place] % (Auto) 1.4, Eos % (Auto) 0.0, Baso % (Auto) 0.3, Absolute Neuts (auto) 6.4, Absolute Lymphs (auto) 0.49 L, Nucleated RBC % 0, Differential Comment SCANNED, Atypical Lymphocytes 1+ 12/10/20 05:05: Sodium 134 L, Potassium 4.5, Chloride 99, Carbon Dioxide 27.0, Anion Gap 8, BUN 37 H, Creatinine 1.14, Estim Creat Clear Calc 67.10, Est GFR (MDRD) Af Amer 81, Est GFR (MDRD) Non-Af 67, BUN/Creatinine Ratio 32.5 H, Glucose 259 H, Calcium 9.2, Magnesium 2.1, Total Bilirubin 0.70, AST 101 H, ALT 140 H, Alkaline Phosphatase 89, Total Protein 6.3 L, Albumin 1.9 L, Globulin 4.4 H, Albumin/Globulin Ratio 0.4 L 12/10/20 06:35: POC Glucose 237 H Micro: Microbiology 12/07/20 21:42 Nasal Secretion SARS-CoV-2 Antigen (Rapid) - Final SARS-CoV-2 (COVID 19) Radiography Diagnostic Testing: Radiology Impression Echocardiogram 12/08/20 04:11 Interpretation Summary The estimated ejection fraction is EF 55-60 %. Normal LV systolic Function Normal function of Bioprothetic AV No significant change from prior echo Ordering Physician: Brandyn Xiao Referring Physician: Guanako Brownlee Performed By: Mimi Naik, NIECY, RVT Physical Exam Narrative Physical exam: General: Alert oriented x3, comfortable, on Airvo/Bipap Head: Atraumatic Eyes: PERRLA, EOMI ENT, moist oral mucosa Neck: Supple CVS: Heart sounds 1 and 2, irregular, no murmurs heard Respiratory : Diminished, no wheezes heard Abdomen: Soft, nontender, nondistended, normal bowel sounds Extremities: No edema Assessment & Plan Assessment/Plan (1) Acute hypoxemic respiratory failure: (2) Obesity (BMI 30-39.9): (3) Atrial fibrillation with rapid ventricular response: (4) COVID-19: PLAN: 1. Acute hypoxemic respiratory failure secondary to acute COVID-19 pneumonia, improved Remains on Airvo/BiPAP. CTA of the chest negative for acute PE, showed diffuse Covid Continue on IV Decadron, breathing treatment 2. Atrial fibrillation with rapid ventricular response, rate controlled Continue metoprolol 75 mg daily, Lovenox SC therapeutic dosing 3. Hypomagnesemia, replace, recheck in a.m. 3. Diabetes mellitus, blood sugars are fairly uncontrolled secondary to steroids Hold Metformin and glipizide held Continue with Lantus and blood glucose checks with insulin sliding scale 4. Hypertension, will hold losartan,continue to monitor 5. Rest of chronic medical conditions are stable?BPH, obesity 6. DVT prophylaxis?on therapeutic Lovenox Charges/Coding Visit Charges Inpatient E&M: 85239 Subs Hosp L3
[2020-12-10] MEDS: Furosemide 40 MG Tablet PO (08:12)
[2020-12-10] MEDS: Metoprolol(XL)Succ 25 MG Tablet 75 MG PO (08:12)
[2020-12-10] MEDS: guaiFENesin 600 MG Tablet PO ×2 (08:12→21:25)
[2020-12-10] MEDS: Aspirin 81 MG TAB.CHEW 162 MG PO (08:12)
[2020-12-10] MEDS: Enoxaparin 120 MG/0.8 ML Syringe 110 MG SC ×2 (08:13→21:24)
[2020-12-10] MEDS: dexAMETHasone 10 MG/ML Vial 6 MG IV (08:13)
[2020-12-10 12:51] LABS: Bedside Glucose 367 mg/dL (70-110)
[2020-12-10 17:15] LABS: Bedside Glucose 312 mg/dL (70-110)
--- NOTE | 2020-12-10 19:57 | NURSING ---
pt sitting in chair states he is comfortable. Bipap intact at 55% 02. Assessment completed, fine crackles noted right base
[2020-12-10] MEDS: Tamsulosin HCl 0.4 MG Capsule PO ×2 (21:25→21:26)
[2020-12-10 21:30] LABS: Bedside Glucose 246 mg/dL (70-110)
--- NOTE | 2020-12-10 22:31 | NURSING ---
2129 pt requested HS meds and to get back to bed. moved to airvo 60l 94% to take pills. ambulated to bsc, marched in place, used incentive spirometer and then to bed. pulse ox to 80% recovered with bipap application.
[2020-12-11] VITALS (35 sets, daily range): BP systolic 86–154; BP diastolic 65–105; PULSE 56–104; RESP 12–38; TEMP 36.3–36.7; O2SAT 80–100
[2020-12-11 03:53] LABS: Absolute Lymphocyte Count 0.61 X10^3/uL (0.83-4.51); Absolute Neutrophil Count 6.3 X10^3/uL (2.0-7.7); Basophil# 0.02 X10^3/uL; Basophil% 0.3 % (0-1); Eosinophil# 0.01 X10^3/uL; Eosinophils% 0.1 % (0-5); Hematocrit 44.3 % (40-54); Lymphocyte # 0.61 X10^3/ul (0.83-4.51); Lymphocyte % 8.6 % (19-41); Mean Corp Hgb Conc 33.9 g/dL (32-36); Mean Corpuscular Hgb 30.1 pg (27.0-32.0); Mean Platelet Vol. 10.6 fl (6.2-12.0); Monocyte% 1.4 % (0-10); NRBC Flagged by Analyzer 0 % (0-5); Neutrophil # 6.31 X10^3/uL (2.7-7.7); Neutrophil % 88.6 % (47-70); POSITIVE MORPHOLOGY YES; Platelet Count 285 K/mm3 (150-450); RBC Distribution Width CV 13.2 % (11.6-14.6); RBC Distribution Width SD 43.1 fl (35.1-43.9); Red Blood Count 4.98 M/mm3 (4.6-6.2); White Blood Count 7.1 K/mm3 (4.4-11.0)
[2020-12-11 03:54] LABS: Differential Indicated SCAN CRITERIA MET
[2020-12-11 04:22] LABS: ALB/GLOB Ratio 0.4 RATIO (0.9-2.4); AST(SGOT) 123 U/L (15-37); Alanine Aminotransfer ALT/SGPT 173 U/L (16-61); Alkaline Phosphatase 91 U/L (45-117); Anion Gap 8 (5-15); BUN 33 mg/dL (7-18); BUN/Creat Ratio 33.2 RATIO (10-20); Chloride 99 mmol/L (98-107); Creatinine, Serum 0.99 mg/dL (0.70-1.30); EST Glomerular Filtration Rate 78 mL/min (>60); Est Glom Filt Rate - Afr Amer 95 mL/min (>60); Estimated Creatinine Clearance 77.26 ml/min; Globulin 4.7 g/dL (2.2-4.2); Glucose 123 mg/dL (74-106); Potassium 4.4 mmol/L (3.5-5.1); Protein, Total 6.7 g/dL (6.4-8.2); Sodium Level 135 mmol/L (136-145)
--- NOTE | 2020-12-11 06:52 | PCM.PN.INT ---
Assessment & Plan Assessment/Plan (1) COVID-19: (2) Acute hypoxemic respiratory failure: (3) Atrial fibrillation with rapid ventricular response: (4) H/O aortic valve replacement: (5) Type 2 diabetes mellitus: PLAN: RECOMMENDATIONS: 1. No Remdesivir or baricitinib secondary to delayed presentation 2. Continue with Decadron therapy (12/18/2020) 3. Aggressive control of blood sugars given steroids in the setting of diabetes 4. Increase twice daily Lantus 5. BiPAP rescue as needed during the day and with sleep 6. Diuresis as tolerated to maintain euvolemia IMPRESSIONS: 1. Acute hypoxic respiratory failure secondary to COVID-19 Patient appears to be doing okay on Airvo. Patient was able to tolerate BiPAP overnight, which does help his overall situation. Patient is unvaccinated and delayed in presentation, so treatment options are limited. Patient will be continued on Decadron therapy through 12/18/2020. Patient would not be a candidate for baricitinib or Remdesivir in my opinion. Will attempt to diuresis patient labs allow. Guarded prognosis at this time. Continue to recommend prone positioning, incentive spirometer and Acapella 2. A. fib with RVR/history of aortic valve replacement Patient appears to be doing okay at this time. We will continue to rate control. Patient appears to be tolerating full anticoagulation at this time. Lower extremity Dopplers did not show a DVT early in hospitalization. 3. Essential hypertension/hyperlipidemia/type 2 diabetes mellitus/advanced age/obesity/delayed presentation/nonvaccinated status Complicates care, management, recovery and prognosis. Transition to twice daily Lantus therapy. Blood pressures appear to be appropriate when heart rate is controlled. Subjective Subjective Patient did okay overnight. Patient did tolerate BiPAP with sleep, but is requiring maximum Airvo to maintain saturations during the day. No fevers noted overnight. Patient is not reporting any pain, nausea or vomiting. Patient has been intermittently attempting Acapella and incentive spirometer. No prone positioning secondary to intolerance. Objective Data Objective Data Vital Signs: Vital Signs Temp Pulse Resp BP Pulse Ox 36.7 C 83 35 H 118/80 82 12/11/20 00:00 12/11/20 06:00 12/11/20 06:00 12/11/20 06:00 12/11/20 06:00 Oxygen Flow Rate (L/min) 60 Oxygen Delivery Method Bi-pap Weight: 106.1 kg Body Mass Index (BMI) 30.5 Intake & Output: Intake and Output for Last 24 Hours 12/09/20 12/10/20 12/11/20 23:59 23:59 23:59 Intake Total 354 / 354 1840 / 1840 Output Total 2160 / 2460 2550 / 2700 350 / 350 Balance -1806 / -2106 -710 / -860 -350 / -350 Lab / Micro Data Result Diagrams: 12/11/20 03:40 12/11/20 03:40 Labs: Laboratory Results - last 24 hr 12/10/20 05:05: Differential Comment SCANNED, Atypical Lymphocytes 1+ 12/10/20 12:29: POC Glucose 367 H 12/10/20 16:56: POC Glucose 312 H 12/10/20 21:22: POC Glucose 246 H 12/11/20 03:40: WBC 7.1, RBC 4.98, Hgb 15.0, Hct 44.3, MCV 89.0, MCH 30.1, MCHC 33.9, RDW Std Deviation 43.1, RDW Coeff of Anabella 13.2, Plt Count 285, MPV 10.6, Immature Gran % (Auto) 1.000 H, Neut % (Auto) 88.6 H, Lymph % (Auto) 8.6 L, [place] % (Auto) 1.4, Eos % (Auto) 0.1, Baso % (Auto) 0.3, Absolute Neuts (auto) 6.3, Absolute Lymphs (auto) 0.61 L, Nucleated RBC % 0 12/11/20 03:40: Sodium 135 L, Potassium 4.4, Chloride 99, Carbon Dioxide 28.0, Anion Gap 8, BUN 33 H, Creatinine 0.99, Estim Creat Clear Calc 77.26, Est GFR (MDRD) Af Amer 95, Est GFR (MDRD) Non-Af 78, BUN/Creatinine Ratio 33.2 H, Glucose 123 H, Calcium 9.0, Total Bilirubin 0.90, AST 123 H, ALT 173 H, Alkaline Phosphatase 91, Total Protein 6.7, Albumin 2.0 L, Globulin 4.7 H, Albumin/Globulin Ratio 0.4 L Micro: Microbiology 12/07/20 21:35 Blood Culture (Wb) - Right Hand Blood Culture - Preliminary No growth in 48 hours. 12/07/20 21:35 Blood Culture (Wb) - Anticubital Left Blood Culture - Preliminary No growth in 48 hours. 12/07/20 21:42 Nasal Secretion SARS-CoV-2 Antigen (Rapid) - Final SARS-CoV-2 (COVID 19) Physical Exam Const alert and oriented x3 Constitutional Narrative: On BiPAP. Mild conversational dyspnea. General Appearance: cooperative and well developed HEENT normocephalic, head/scalp atraumatic and moist oral mucous membranes Eyes PERRL and EOMs intact bilaterally Neck full ROM and no lymphadenopathy Chest inspection of chest normal Chest: symmetrical chest wall rise; Negative for crepitus Resp Auscultation: diminished lung sounds; Negative for rales, rhonchi or wheezes Percussion: Negative for dullness Cardio regular rate, S1 normal heart sound, S2 normal heart sound, no murmurs, no rub and no gallops Rhythm: abnormal rhythm irregularly irregular GI normal to inspection, nondistended, normoactive bowel sounds no CVA tenderness Extremity no clubbing, cyanosis or edema Skin no rashes or lesions noted Neuro oriented x3, CN's II-XII intact bilaterally, moves all extremities and no focal motor deficits Psych cooperative and affect normal Charges/Coding Visit Charges Inpatient E&M: 84965 Subs Hosp L3
--- NOTE | 2020-12-11 08:03 | PN.HOSP_ITS ---
Subjective Subjective Follow-up on acute failure/acute COVID-19 pneumonia: Patient seen and examined. He remains on Airvo/BiPAP. Oxygen sats remained tenuous Objective Data Objective Data Vital Signs: Vital Signs Temp Pulse Resp BP Pulse Ox 98.0 F 94 28 H 151/71 H 82 12/11/20 00:00 12/11/20 07:00 12/11/20 07:00 12/11/20 07:00 12/11/20 06:00 Oxygen Flow Rate (L/min) 60 Oxygen Delivery Method Bi-pap Weight: 106.1 kg Body Mass Index (BMI) 30.5 Intake & Output: Intake and Output for Last 24 Hours 12/09/20 12/10/20 12/11/20 23:59 23:59 23:59 Intake Total 354 / 354 1840 / 1840 Output Total 2160 / 2460 2550 / 2700 350 / 350 Balance -1806 / -2106 -710 / -860 -350 / -350 Lab / Micro Data Result Diagrams: 12/11/20 03:40 12/11/20 03:40 Labs: Laboratory Results - last 24 hr 12/10/20 12:29: POC Glucose 367 H 12/10/20 16:56: POC Glucose 312 H 12/10/20 21:22: POC Glucose 246 H 12/11/20 03:40: WBC 7.1, RBC 4.98, Hgb 15.0, Hct 44.3, MCV 89.0, MCH 30.1, MCHC 33.9, RDW Std Deviation 43.1, RDW Coeff of Anabella 13.2, Plt Count 285, MPV 10.6, Immature Gran % (Auto) 1.000 H, Neut % (Auto) 88.6 H, Lymph % (Auto) 8.6 L, [place] % (Auto) 1.4, Eos % (Auto) 0.1, Baso % (Auto) 0.3, Absolute Neuts (auto) 6.3, Absolute Lymphs (auto) 0.61 L, Nucleated RBC % 0 12/11/20 03:40: Sodium 135 L, Potassium 4.4, Chloride 99, Carbon Dioxide 28.0, Anion Gap 8, BUN 33 H, Creatinine 0.99, Estim Creat Clear Calc 77.26, Est GFR (MDRD) Af Amer 95, Est GFR (MDRD) Non-Af 78, BUN/Creatinine Ratio 33.2 H, Glucose 123 H, Calcium 9.0, Total Bilirubin 0.90, AST 123 H, ALT 173 H, Alkaline Phosphatase 91, Total Protein 6.7, Albumin 2.0 L, Globulin 4.7 H, Albumin/Globulin Ratio 0.4 L Micro: Microbiology 12/07/20 21:35 Blood Culture (Wb) - Right Hand Blood Culture - Preliminary No growth in 48 hours. 12/07/20 21:35 Blood Culture (Wb) - Anticubital Left Blood Culture - Preliminary No growth in 48 hours. 12/07/20 21:42 Nasal Secretion SARS-CoV-2 Antigen (Rapid) - Final SARS-CoV-2 (COVID 19) Physical Exam Narrative Physical exam: General: Alert oriented x3, comfortable, on Airvo/Bipap Head: Atraumatic Eyes: PERRLA, EOMI ENT, moist oral mucosa Neck: Supple CVS: Heart sounds 1 and 2, irregular, no murmurs heard Respiratory : Diminished, no wheezes heard Abdomen: Soft, nontender, nondistended, normal bowel sounds Extremities: No edema Assessment & Plan Assessment/Plan (1) Acute hypoxemic respiratory failure: (2) Obesity (BMI 30-39.9): (3) Atrial fibrillation with rapid ventricular response: (4) COVID-19: PLAN: 1. Acute hypoxemic respiratory failure secondary to acute COVID-19 pneumonia, improved Patient is unvaccinated Remains on Airvo/BiPAP. CTA of the chest negative for acute PE; showed diffuse infiltrates Did not qualify for Remdesivir and Baracitinib Continue on IV Decadron, breathing treatment 2. Atrial fibrillation with rapid ventricular response, present on admission Now rate controlled. Continue metoprolol 75 mg daily, Lovenox SC therapeutic dosing 3. Hypomagnesemia, replaced 4. Diabetes mellitus, blood sugars are relatively low Hold Metformin and glipizide held Decrease Lantus to 10 units twice daily, blood glucose checks with insulin sliding scale 5. Hypertension, will hold losartan, continue to monitor 6. Rest of chronic medical conditions are stable?BPH, obesity, status post aortic valve replacement 7. DVT prophylaxis?on therapeutic Lovenox Charges/Coding Visit Charges Inpatient E&M: 81825 Subs Hosp L3
[2020-12-11] MEDS: 0.9% Saline Lock 10 ML Syringe IV (08:57)
[2020-12-11] MEDS: dexAMETHasone 10 MG/ML Vial 6 MG IV (08:57)
[2020-12-11] MEDS: guaiFENesin 600 MG Tablet PO ×2 (09:03→20:50)
[2020-12-11] MEDS: Metoprolol(XL)Succ 25 MG Tablet 75 MG PO (09:03)
[2020-12-11] MEDS: Furosemide 40 MG Tablet PO ×2 (09:03→17:34)
[2020-12-11] MEDS: Enoxaparin 120 MG/0.8 ML Syringe 110 MG SC ×2 (09:04→20:48)
[2020-12-11] MEDS: Aspirin 81 MG TAB.CHEW 162 MG PO (09:04)
[2020-12-11 11:15] LABS: Bedside Glucose 90 mg/dL (70-110)
[2020-12-11 13:26] LABS: Bedside Glucose 132 mg/dL (70-110)
[2020-12-11] MEDS: Insulin Lispro 100 UNIT/ML INSULN.PEN SC (17:34)
[2020-12-11 17:45] LABS: Bedside Glucose 172 mg/dL (70-110)
[2020-12-11 22:35] LABS: Bedside Glucose 142 mg/dL (70-110)
[2020-12-12] VITALS (35 sets, daily range): BP systolic 100–152; BP diastolic 62–101; PULSE 54–106; RESP 12–31; TEMP 35.7–36.8; O2SAT 89–100
[2020-12-12] MEDS: 0.9% Saline Lock 10 ML Syringe IV ×2 (04:11→20:50)
[2020-12-12 04:20] LABS: Absolute Lymphocyte Count 0.72 X10^3/uL (0.83-4.51); Absolute Neutrophil Count 5.6 X10^3/uL (2.0-7.7); Basophil# 0.01 X10^3/uL; Basophil% 0.2 % (0-1); Eosinophil# 0.02 X10^3/uL; Eosinophils% 0.3 % (0-5); Hematocrit 42.8 % (40-54); Lymphocyte # 0.72 X10^3/ul (0.83-4.51); Mean Corpuscular Hgb 30.7 pg (27.0-32.0); Mean Corpuscular Volume 87.7 fL (80-94); Mean Platelet Vol. 10.5 fl (6.2-12.0); Monocyte# 0.09 X10^3/uL; Monocyte% 1.4 % (0-10); NRBC Flagged by Analyzer 0 % (0-5); Neutrophil # 5.63 X10^3/uL (2.7-7.7); Neutrophil % 86.3 % (47-70); POSITIVE MORPHOLOGY YES; Platelet Count 299 K/mm3 (150-450); RBC Distribution Width CV 13.2 % (11.6-14.6); RBC Distribution Width SD 42.7 fl (35.1-43.9); Red Blood Count 4.88 M/mm3 (4.6-6.2); White Blood Count 6.5 K/mm3 (4.4-11.0)
[2020-12-12 04:32] LABS: Differential Indicated SCAN CRITERIA MET
[2020-12-12 04:48] LABS: ALB/GLOB Ratio 0.4 RATIO (0.9-2.4); AST(SGOT) 92 U/L (15-37); Alanine Aminotransfer ALT/SGPT 152 U/L (16-61); Albumin, Serum 1.9 g/dL (3.2-5.0); Alkaline Phosphatase 90 U/L (45-117); Anion Gap 9 (5-15); BUN 41 mg/dL (7-18); BUN/Creat Ratio 33.1 RATIO (10-20); Calcium,Total 8.8 mg/dL (8.5-10.1); Chloride 98 mmol/L (98-107); Creatinine, Serum 1.24 mg/dL (0.70-1.30); EST Glomerular Filtration Rate 61 mL/min (>60); Est Glom Filt Rate - Afr Amer 73 mL/min (>60); Estimated Creatinine Clearance 61.69 ml/min; Globulin 4.9 g/dL (2.2-4.2); Glucose 113 mg/dL (74-106); Potassium 4.5 mmol/L (3.5-5.1); Protein, Total 6.8 g/dL (6.4-8.2); Sodium Level 136 mmol/L (136-145)
--- NOTE | 2020-12-12 05:49 | PCM.PN.INT ---
Assessment & Plan Assessment/Plan (1) COVID-19: (2) Acute hypoxemic respiratory failure: (3) Atrial fibrillation with rapid ventricular response: (4) H/O aortic valve replacement: (5) Type 2 diabetes mellitus: PLAN: RECOMMENDATIONS: 1. Continue BiPAP therapy as tolerated. Wean FiO2 to maintain oxygen saturations at or above 90%. 2. Patient to remain n.p.o. for now. 3. Obtain infectious diseases consultation. 4. Continue Lovenox and Decadron as ordered. 5. IV Lasix as needed to maintain euvolemic state. 6. Check strep and urine Legionella antigens along with respiratory viral panel and MRSA screen. 7. Awake prone positioning was encouraged. 8. Obtain repeat chest x-ray this morning. IMPRESSIONS: 1. Acute hypoxic respiratory failure secondary to COVID-19 pneumonia The patient initially presented to the hospital with approximately 12 days of progressive Covid symptoms and hypoxemia. CTA chest showed no evidence for pulmonary embolism. However, D-dimer was elevated. Therefore, the patient will be continued on therapeutic Lovenox. In addition, the patient has already been initiated on Decadron. He was outside of the window for remdesivir administration. Plan to continue intermittent diuretic therapy, as needed, to maintain euvolemic state. The patient will also be continued on BiPAP therapy as tolerated to maintain an oxygen saturation at or above 90%. Infectious diseases consultation will be obtained today. In addition to the aforementioned, will obtain further infectious work-up with strep and urine Legionella antigens, respiratory viral panel and MRSA screen. If the patient continues to decompensate further from a clinical perspective, will start empiric antimicrobials. 2. A. fib with RVR/history of aortic valve replacement Continue current medical management including systemic anticoagulation and beta-rainer regimen. 3. Essential hypertension/hyperlipidemia/type 2 diabetes mellitus/advanced age/obesity/delayed presentation/nonvaccinated status Complicates care, management, recovery and prognosis. Continue Lantus and sliding scale insulin coverage. TIME: 34 minutes of critical care time, independent of procedures, was spent addressing the patient's acute hypoxemic respiratory failure secondary to COVID-19 pneumonia, atrial fibrillation with RVR, review of all data and collaboration with the care team. ([id number]) Subjective Subjective The patient was seen and examined at the bedside this morning. Events from the last 24 hours have been reviewed. The patient is currently afebrile, hemodynamically stable and maintaining appropriate oxygen saturations on BiPAP with an FiO2 requirement of 80%. Over the course of the last several days, the patient's oxygenation requirement has increased. He is currently documented to be overall net -4 L for the hospital admission. The patient is currently on therapeutic Lovenox and Decadron. He does continue to endorse ongoing dyspnea. Objective Data Objective Data The patient's most recent lab work, culture data and imaging studies have all been personally reviewed. Surface echocardiogram dated October 2020 demonstrated moderate concentric LVH with an ejection fraction of 60% and stage I diastolic dysfunction. Rapid coronavirus antigen testing was positive on December 07. Blood cultures have not demonstrated any growth to date. Vital Signs: Vital Signs Temp Pulse Resp BP Pulse Ox 98.3 F 76 22 H 114/82 H 92 12/12/20 00:00 12/12/20 04:00 12/12/20 04:00 12/12/20 04:00 12/12/20 04:00 Oxygen Flow Rate (L/min) 60 Oxygen Delivery Method Bi-pap Weight: 102.5 kg Body Mass Index (BMI) 30.5 Intake & Output: Intake and Output for Last 24 Hours 12/10/20 12/11/20 12/12/20 23:59 23:59 23:59 Intake Total 1840 / 1840 220 / 220 Output Total 2550 / 2700 1875 / 2075 300 / 300 Balance -710 / -860 -1655 / -1855 -300 / -300 Lab / Micro Data Attestation: I reviewed the patient's lab results. Result Diagrams: 12/12/20 04:08 12/12/20 04:08 Labs: Laboratory Results - last 24 hr 12/11/20 08:40: POC Glucose 90 12/11/20 13:20: POC Glucose 132 H 12/11/20 17:06: POC Glucose 172 H 12/11/20 22:26: POC Glucose 142 H 12/12/20 04:08: WBC 6.5, RBC 4.88, Hgb 15.0, Hct 42.8, MCV 87.7, MCH 30.7, MCHC 35.0, RDW Std Deviation 42.7, RDW Coeff of Anabella 13.2, Plt Count 299, MPV 10.5, Immature Gran % (Auto) 0.800, Neut % (Auto) 86.3 H, Lymph % (Auto) 11.0 L, [place] % (Auto) 1.4, Eos % (Auto) 0.3, Baso % (Auto) 0.2, Absolute Neuts (auto) 5.6, Absolute Lymphs (auto) 0.72 L, Nucleated RBC % 0 12/12/20 04:08: Sodium 136, Potassium 4.5, Chloride 98, Carbon Dioxide 29.0, Anion Gap 9, BUN 41 H, Creatinine 1.24, Estim Creat Clear Calc 61.69, Est GFR (MDRD) Af Amer 73, Est GFR (MDRD) Non-Af 61, BUN/Creatinine Ratio 33.1 H, Glucose 113 H, Calcium 8.8, Total Bilirubin 1.20 H, AST 92 H, ALT 152 H, Alkaline Phosphatase 90, Total Protein 6.8, Albumin 1.9 L, Globulin 4.9 H, Albumin/Globulin Ratio 0.4 L Micro: Microbiology 12/07/20 21:35 Blood Culture (Wb) - Right Hand Blood Culture - Preliminary No growth in 48 hours. 12/07/20 21:35 Blood Culture (Wb) - Anticubital Left Blood Culture - Preliminary No growth in 48 hours. 12/07/20 21:42 Nasal Secretion SARS-CoV-2 Antigen (Rapid) - Final SARS-CoV-2 (COVID 19) Physical Exam Const alert General Appearance: cooperative, ill appearing and on BiPAP HEENT normocephalic and head/scalp atraumatic Eyes PERRL, EOMs intact bilaterally and conjunctivae normal Neck supple General: trachea midline Chest inspection of chest normal Resp Effort and Inspection: tachypneic Auscultation: diminished lung sounds Cardio S1 normal heart sound and S2 normal heart sound Rhythm: abnormal rhythm GI normal to inspection, nondistended, normoactive bowel sounds Extremity no clubbing, cyanosis or edema Skin no rashes or lesions noted Neuro moves all extremities and no focal motor deficits Psych Mood & Affect: flat affect Charges/Coding Procedures Hospitalists Procedures: 79526 Critial Care 1st Hr
--- NOTE | 2020-12-12 07:16 | PCM.PN.HOSP ---
Subjective Subjective Patient is a 75-year-old gentleman unvaccinated against COVID-19 who presented with progressive shortness of breath and assessment of acute hypoxic respiratory failure secondary to SARS-CoV-2 pneumonia made admitted to the intensive care unit where patient is currently being managed Objective Data Objective Data Vital Signs: Vital Signs Temp Pulse Resp BP Pulse Ox 98.3 F 71 22 H 137/88 H 93 12/12/20 00:00 12/12/20 07:00 12/12/20 07:00 12/12/20 07:00 12/12/20 06:54 Oxygen Flow Rate (L/min) 60 Oxygen Delivery Method Bi-pap Weight: 102.5 kg Body Mass Index (BMI) 30.5 Intake & Output: Intake and Output for Last 24 Hours 12/10/20 12/11/20 12/12/20 23:59 23:59 23:59 Intake Total 1840 / 1840 220 / 220 Output Total 2550 / 2700 1875 / 2075 400 / 400 Balance -710 / -860 -1655 / -1855 -400 / -400 Lab / Micro Data Result Diagrams: 12/12/20 04:08 12/12/20 04:08 Labs: Laboratory Results - last 24 hr 12/11/20 08:40: POC Glucose 90 12/11/20 13:20: POC Glucose 132 H 12/11/20 17:06: POC Glucose 172 H 12/11/20 22:26: POC Glucose 142 H 12/12/20 04:08: WBC 6.5, RBC 4.88, Hgb 15.0, Hct 42.8, MCV 87.7, MCH 30.7, MCHC 35.0, RDW Std Deviation 42.7, RDW Coeff of Anabella 13.2, Plt Count 299, MPV 10.5, Immature Gran % (Auto) 0.800, Neut % (Auto) 86.3 H, Lymph % (Auto) 11.0 L, [place] % (Auto) 1.4, Eos % (Auto) 0.3, Baso % (Auto) 0.2, Absolute Neuts (auto) 5.6, Absolute Lymphs (auto) 0.72 L, Nucleated RBC % 0 12/12/20 04:08: Sodium 136, Potassium 4.5, Chloride 98, Carbon Dioxide 29.0, Anion Gap 9, BUN 41 H, Creatinine 1.24, Estim Creat Clear Calc 61.69, Est GFR (MDRD) Af Amer 73, Est GFR (MDRD) Non-Af 61, BUN/Creatinine Ratio 33.1 H, Glucose 113 H, Calcium 8.8, Total Bilirubin 1.20 H, AST 92 H, ALT 152 H, Alkaline Phosphatase 90, Total Protein 6.8, Albumin 1.9 L, Globulin 4.9 H, Albumin/Globulin Ratio 0.4 L Micro: Microbiology 12/07/20 21:35 Blood Culture (Wb) - Right Hand Blood Culture - Preliminary No growth in 48 hours. 12/07/20 21:35 Blood Culture (Wb) - Anticubital Left Blood Culture - Preliminary No growth in 48 hours. 12/07/20 21:42 Nasal Secretion SARS-CoV-2 Antigen (Rapid) - Final SARS-CoV-2 (COVID 19) Physical Exam Narrative GENERAL: Dyspneic at rest on BiPAP HEENT: Atraumatic; EYES; Anicteric, Normal Conjunctiva NECK; supple, normal thyroid, RESPIRATORY: Diminished to auscultation CARDIOVASCULAR: Regular S1 S2, GI: soft, normoactive bowel sounds, : No Renal angle tenderness; EXTREMITIES: No edema, no clubbing, MUSCULOSKELETAL: no muscle waisting NEURO: Awake; no lateralizing signs. SKIN: No Rash PSYCH; Flat affect Assessment & Plan Assessment/Plan (1) Acute hypoxemic respiratory failure: (2) Obesity (BMI 30-39.9): (3) Atrial fibrillation with rapid ventricular response: (4) COVID-19: PLAN: Patient is a 75-year-old gentleman unvaccinated against COVID-19 who presented with progressive shortness of breath and assessment of acute hypoxic respiratory failure secondary to SARS-CoV-2 pneumonia made admitted to the intensive care unit where patient is currently being managed 1. Acute hypoxic respiratory failure ?Secondary to SARS-CoV-2 pneumonia. Currently being managed with Decadron as well as noninvasive ventilation via BiPAP. Patient was deemed not a candidate for baricitinib as well as remdesivir 2. A. fib with RVR ?This was present on admission heart rate subsequently well controlled. Currently on metoprolol 3. Aortic valve disease ?With history of Mookie Godinez bovine pericardial valve replacement in 2013 4. Diabetes mellitus type II -patient's oral hypoglycemics held. Placed on long acting insulin, Accu-Cheks a.c. and at bedtime and covered with sliding scale insulin 5. Hypomagnesemia ?Corrected per protocol 6. Hypertension - Blood pressure controlled, home medications continued with dose adjustment as needed 7. BPH ?On tamsulosin 8. DVT prophylaxis ?Lovenox Charges/Coding Visit Charges Inpatient E&M: 81265 Subs Hosp L3
--- NOTE | 2020-12-12 08:20 | RAD_ITS ---
STUDY: X-RAY CHEST REASON FOR EXAM: Male, 75 years old. COVID PNA TECHNIQUE: Single AP portable view of the chest. COMPARISON: Comparison is made with prior examination dated 08/12/2013. FINDINGS: EKG electrodes are seen. Patchy right lower lobe and left lower lobe infiltrates. This is worse on the left side. Follow-up is recommended. There is no demonstrated pleural abnormality. Sternal cerclage wires are present from a prior sternotomy. The patient is status post mitral valve replacement. Normal mediastinum and salazar. Normal visualized pulmonary arteries. There is atherosclerotic calcification of the aortic arch with tortuosity. Normal visualized thoracic spine. Normal visualized ribs, clavicles, and shoulders. There is no demonstrated abnormality of the visualized soft tissue structures of the upper abdomen. RAD/Chest 1 View (Portable) IMPRESSION: Patchy bibasilar infiltrates more prominent on the left side. Follow-up is recommended. Electronically Signed: Tyler Mitchell MD at 13:06 EDT , Service support ,
[2020-12-12] MEDS: dexAMETHasone 10 MG/ML Vial 6 MG IV (11:14)
[2020-12-12] MEDS: Enoxaparin 120 MG/0.8 ML Syringe 110 MG SC ×2 (11:15→20:49)
[2020-12-12] MEDS: Metoprolol(XL)Succ 25 MG Tablet 75 MG PO (11:15)
[2020-12-12] MEDS: Aspirin 81 MG TAB.CHEW 162 MG PO (11:15)
[2020-12-12] MEDS: guaiFENesin 600 MG Tablet PO ×2 (11:15→20:49)
[2020-12-12 13:02] LABS: M R Staph aureus DNA By PCR Negative (Negative)
[2020-12-12 13:03] LABS: Probe Check PASS; Specimen Processing Control PASS
--- NOTE | 2020-12-12 14:06 | CON.PCM.ID_ITS ---
Assessment & Plan Assessment/Plan (1) COVID-19: PLAN: Sx started around 11/25. Unvaccinated. On 90% bipap. Given that he has been on airvo/bipap since 12/08, no longer candidate for baricitinib. Isolate until 12/15. On dex. CT showed no PE. Recommended vaccine once out of the hospital. Will follow, thank you (2) H/O aortic valve replacement: (3) Acute hypoxemic respiratory failure: HPI Consult Data Date of Consult: 12/12/20 HPI Narrative HPI Narrative: IDRIS DUDLEY, is a 75 M who presented to ED 12/07/20 with at that time reported 12 days of symptoms. Had been having fever, diarrhea, headache, aches, cough, and progressive dyspnea. Was started on doxy, dex, and hydroxychloroquine as an outpt. Unvaccinated for covid. Denies anyone else sick at home. Admitted 12/08 on dex, airvo/bipap. Feeling about the same. Full ROS performed and neg except as noted above. [facility]LY [facility] Medical History Atrial fibrillation Essential (primary) hypertension Hyperlipidemia Obesity Rheumatic aortic stenosis SVT (supraventricular tachycardia) Type 2 diabetes mellitus Home Medications aspirin 81 mg chewable tablet 162 mg PO .COMPLEX 02/05/17 [History Last Taken Unknown] glipizide 2.5 mg tablet, extended release 24 hr 2.5 mg PO DAILY #90 tab 05/18/20 [Rx Last Taken Unknown] losartan 100 mg tablet 100 mg PO DAILY #90 tab 07/13/20 [Rx Last Taken Unknown] tamsulosin 0.4 mg capsule 0.4 mg PO QHS #90 cap 07/13/20 [Rx Last Taken Unknown] hydroxychloroquine 200 mg PO BID 12/07/20 [History Last Taken Unknown] metformin 1,500 mg PO 12/07/20 [History Last Taken Unknown] metoprolol succinate [Toprol XL] 5 mg PO BID 12/07/20 [History Last Taken Unknown] Allergy/AdvReac Type Severity Reaction Status Date / Time lisinopril AdvReac cough Verified 12/07/20 21:35 Family History Sister Heart disease Mother Cancer Surgical History H/O aortic valve replacement (08/2013) History of cholecystectomy History of left heart catheterization (08/17/13) History of radiofrequency ablation procedure for cardiac arrhythmia (04/29/03) Social History (Updated 12/08/20 @ 02:54 by Shine Diaz) adopted: No household members: spouse housing: house number of children: 10 financial difficulty paying for basics: not very hard service: No current occupational status: retired current occupational exposures/hazards: No pets and animals: No Smoking Status: Never smoker alcohol intake: never substance use type: does not use what type of physical activity do you participate in: none Physical Exam Const Constitutional Narrative: ill appearing General Appearance: cooperative Exam Limitations: no limitations HEENT normocephalic and head/scalp atraumatic Eyes PERRL and EOMs intact bilaterally Neck supple and No nodes Resp Auscultation: diminished lung sounds Cardio Rate: tachycardic GI normal to inspection, nondistended, normoactive bowel sounds Extremity no clubbing, cyanosis or edema Skin no rashes or lesions noted Neuro CN's II-XII intact bilaterally Lab / Micro Data Result Diagrams: 12/12/20 04:08 12/12/20 04:08 Labs: Laboratory Results - last 24 hr 12/11/20 17:06: POC Glucose 172 H 12/11/20 22:26: POC Glucose 142 H 12/12/20 04:08: WBC 6.5, RBC 4.88, Hgb 15.0, Hct 42.8, MCV 87.7, MCH 30.7, MCHC 35.0, RDW Std Deviation 42.7, RDW Coeff of Anabella 13.2, Plt Count 299, MPV 10.5, Immature Gran % (Auto) 0.800, Neut % (Auto) 86.3 H, Lymph % (Auto) 11.0 L, [place] % (Auto) 1.4, Eos % (Auto) 0.3, Baso % (Auto) 0.2, Absolute Neuts (auto) 5.6, Absolute Lymphs (auto) 0.72 L, Nucleated RBC % 0 12/12/20 04:08: Sodium 136, Potassium 4.5, Chloride 98, Carbon Dioxide 29.0, Anion Gap 9, BUN 41 H, Creatinine 1.24, Estim Creat Clear Calc 61.69, Est GFR (MDRD) Af Amer 73, Est GFR (MDRD) Non-Af 61, BUN/Creatinine Ratio 33.1 H, Glucose 113 H, Calcium 8.8, Total Bilirubin 1.20 H, AST 92 H, ALT 152 H, Alkaline Phosphatase 90, Total Protein 6.8, Albumin 1.9 L, Globulin 4.9 H, Albumin/Globulin Ratio 0.4 L 12/12/20 11:25: MRSA (PCR) Negative Micro: Microbiology 12/12/20 10:45 Mucosa - Nasopharyngeal Respiratory Panel (PCR) - Final Radiology Impression Chest X-Ray 12/12/20 08:20 IMPRESSION: Patchy bibasilar infiltrates more prominent on the left side. Follow-up is recommended. Electronically Signed: Tyler Mitchell MD at 13:06 EDT , Service support ,
[2020-12-12 17:41] LABS: Bedside Glucose 110 mg/dL (70-110)
[2020-12-12] MEDS: Insulin Lispro 100 UNIT/ML INSULN.PEN SC ×2 (17:50→20:54)
[2020-12-12 19:51] LABS: Bedside Glucose 180 mg/dL (70-110)
[2020-12-12] MEDS: MELATONIN 3 MG TABLET PO (20:49)
[2020-12-12] MEDS: Tamsulosin HCl 0.4 MG Capsule PO (20:49)
[2020-12-12] MEDS: Acetaminophen 325 MG Tablet 650 MG PO (20:49)
[2020-12-12 21:11] LABS: Bedside Glucose 165 mg/dL (70-110)
[2020-12-13] VITALS (40 sets, daily range): BP systolic 102–143; BP diastolic 67–95; PULSE 58–107; RESP 12–33; TEMP 35.6–37.1; O2SAT 90–99
[2020-12-13 04:53] LABS: Absolute Lymphocyte Count 0.55 X10^3/uL (0.83-4.51); Absolute Neutrophil Count 6.3 X10^3/uL (2.0-7.7); Basophil# 0.01 X10^3/uL; Basophil% 0.1 % (0-1); Eosinophil# 0.03 X10^3/uL; Eosinophils% 0.4 % (0-5); Hematocrit 43.3 % (40-54); Hemoglobin 14.7 g/dL (13.0-16.5); Lymphocyte # 0.55 X10^3/ul (0.83-4.51); Lymphocyte % 7.8 % (19-41); Mean Corp Hgb Conc 33.9 g/dL (32-36); Mean Corpuscular Hgb 30.6 pg (27.0-32.0); Mean Platelet Vol. 10.5 fl (6.2-12.0); Monocyte% 1.4 % (0-10); NRBC Flagged by Analyzer 0 % (0-5); Neutrophil # 6.34 X10^3/uL (2.7-7.7); Neutrophil % 89.7 % (47-70); POSITIVE DIFFERENTIAL YES; POSITIVE MORPHOLOGY YES; Platelet Count 267 K/mm3 (150-450); RBC Distribution Width CV 13.2 % (11.6-14.6); RBC Distribution Width SD 43.8 fl (35.1-43.9); Red Blood Count 4.81 M/mm3 (4.6-6.2); White Blood Count 7.1 K/mm3 (4.4-11.0)
[2020-12-13 05:11] LABS: ALB/GLOB Ratio 0.4 RATIO (0.9-2.4); AST(SGOT) 73 U/L (15-37); Alanine Aminotransfer ALT/SGPT 112 U/L (16-61); Albumin, Serum 1.8 g/dL (3.2-5.0); Alkaline Phosphatase 86 U/L (45-117); Anion Gap 9 (5-15); BUN 51 mg/dL (7-18); BUN/Creat Ratio 35.4 RATIO (10-20); Calcium,Total 8.8 mg/dL (8.5-10.1); Chloride 97 mmol/L (98-107); Creatinine, Serum 1.44 mg/dL (0.70-1.30); EST Glomerular Filtration Rate 51 mL/min (>60); Est Glom Filt Rate - Afr Amer 62 mL/min (>60); Estimated Creatinine Clearance 53.12 ml/min; Glucose 126 mg/dL (74-106); Potassium 4.6 mmol/L (3.5-5.1); Protein, Total 6.8 g/dL (6.4-8.2); Sodium Level 137 mmol/L (136-145)
[2020-12-13 05:24] LABS: Differential Indicated SCAN CRITERIA MET
--- NOTE | 2020-12-13 06:37 | PCM.PN.INT ---
Assessment & Plan Assessment/Plan (1) COVID-19: (2) Acute hypoxemic respiratory failure: (3) Atrial fibrillation with rapid ventricular response: (4) H/O aortic valve replacement: (5) Type 2 diabetes mellitus: PLAN: RECOMMENDATIONS: 1. Continue a combination of BIPAP and Airvo as tolerated. 2. Goal to maintain oxygen saturations at or above 90%. 3. Continue Lovenox as ordered. 4. Continue Decadron to complete 10-day treatment course. 5. IV Lasix as needed to maintain euvolemic state. 6. Awake prone positioning was encouraged. IMPRESSIONS: 1. Acute hypoxic respiratory failure secondary to COVID-19 pneumonia The patient initially presented to the hospital with approximately 12 days of progressive Covid symptoms and hypoxemia. CTA chest showed no evidence for pulmonary embolism. However, D-dimer was elevated. Therefore, the patient will be continued on therapeutic Lovenox. In addition, the patient has already been initiated on Decadron. He was outside of the window for remdesivir administration. Plan to continue intermittent diuretic therapy, as needed, to maintain euvolemic state. The patient will also be continued on BiPAP/Airvo therapy as tolerated to maintain an oxygen saturation at or above 90%. If the patient decompensates further from a clinical perspective, will start empiric antimicrobials. 2. A. fib with RVR/history of aortic valve replacement Continue current medical management including systemic anticoagulation and beta-rainer regimen. 3. Essential hypertension/hyperlipidemia/type 2 diabetes mellitus/advanced age/obesity/delayed presentation/nonvaccinated status Complicates care, management, recovery and prognosis. Continue Lantus and sliding scale insulin coverage. This note was generated with [employer] dictation software. It may contain incorrect words, spelling, and punctuation that were not noted in checking the note before signing. Subjective Subjective The patient was seen and examined at the bedside this morning. Events from the last 24 hours have been reviewed. The patient is currently afebrile, hemodynamically stable and maintaining appropriate oxygen saturations on BiPAP with an FiO2 requirement of 80%. The patient was able to be weaned to Airvo heated high flow throughout the day yesterday with an FiO2 requirement of 93% and flow rate of 60 L/min. He was then placed on BiPAP for overnight support. He is currently documented to be overall net -5 L for the hospital admission. The patient is currently on therapeutic Lovenox and Decadron. Creatinine is up to 1.4 this morning. Objective Data Objective Data The patient's most recent lab work, culture data and imaging studies have all been personally reviewed. Surface echocardiogram dated October 2020 demonstrated moderate concentric LVH with an ejection fraction of 60% and stage I diastolic dysfunction. Rapid coronavirus antigen testing was positive on December 07. Blood cultures have not demonstrated any growth to date. Vital Signs: Vital Signs Temp Pulse Resp BP Pulse Ox 97.8 F 84 23 H 131/92 H 95 12/13/20 04:49 12/13/20 06:00 12/13/20 06:00 12/13/20 06:00 12/13/20 06:00 Oxygen Flow Rate (L/min) 60 Oxygen Delivery Method Bi-pap Weight: 103 kg Body Mass Index (BMI) 30.5 Intake & Output: Intake and Output for Last 24 Hours 12/11/20 12/12/20 12/13/20 23:59 23:59 23:59 Intake Total 220 / 220 360 / 360 120 / 120 Output Total 1875 / 2075 1450 / 1450 400 / 400 Balance -1655 / -1855 -1090 / -1090 -280 / -280 Lab / Micro Data Attestation: I reviewed the patient's lab results. Result Diagrams: 12/13/20 04:40 12/13/20 04:40 Labs: Laboratory Results - last 24 hr 12/12/20 11:25: MRSA (PCR) Negative 12/12/20 11:48: POC Glucose 110 12/12/20 17:48: POC Glucose 180 H 12/12/20 20:45: POC Glucose 165 H 12/13/20 04:40: WBC 7.1, RBC 4.81, Hgb 14.7, Hct 43.3, MCV 90.0, MCH 30.6, MCHC 33.9, RDW Std Deviation 43.8, RDW Coeff of Anabella 13.2, Plt Count 267, MPV 10.5, Immature Gran % (Auto) 0.600, Neut % (Auto) 89.7 H, Lymph % (Auto) 7.8 L, [place] % (Auto) 1.4, Eos % (Auto) 0.4, Baso % (Auto) 0.1, Absolute Neuts (auto) 6.3, Absolute Lymphs (auto) 0.55 L, Nucleated RBC % 0 12/13/20 04:40: Sodium 137, Potassium 4.6, Chloride 97 L, Carbon Dioxide 31.0, Anion Gap 9, BUN 51 H, Creatinine 1.44 H, Estim Creat Clear Calc 53.12, Est GFR (MDRD) Af Amer 62, Est GFR (MDRD) Non-Af 51 L, BUN/Creatinine Ratio 35.4 H, Glucose 126 H, Calcium 8.8, Magnesium 2.0, Total Bilirubin 1.20 H, AST 73 H, ALT 112 H, Alkaline Phosphatase 86, Total Protein 6.8, Albumin 1.8 L, Globulin 5.0 H, Albumin/Globulin Ratio 0.4 L Micro: Microbiology 12/12/20 20:45 Urine, Clean Catch Legionella Antigen - Final 12/12/20 20:45 Urine, Clean Catch Streptococcus pneumoniae Antigen (M - Final 12/12/20 10:45 Mucosa - Nasopharyngeal Respiratory Panel (PCR) - Final 12/07/20 21:35 Blood Culture (Wb) - Right Hand Blood Culture - Preliminary No growth in 48 hours. 12/07/20 21:35 Blood Culture (Wb) - Anticubital Left Blood Culture - Preliminary No growth in 48 hours. 12/07/20 21:42 Nasal Secretion SARS-CoV-2 Antigen (Rapid) - Final SARS-CoV-2 (COVID 19) Radiography Diagnostic Testing: Radiology Impression Chest X-Ray 12/12/20 08:20 IMPRESSION: Patchy bibasilar infiltrates more prominent on the left side. Follow-up is recommended. Electronically Signed: Tyler Mitchell MD at 13:06 EDT , Service support , Physical Exam Const alert General Appearance: cooperative, ill appearing and on BiPAP HEENT normocephalic and head/scalp atraumatic Eyes PERRL, EOMs intact bilaterally and conjunctivae normal Neck supple General: trachea midline Chest inspection of chest normal Resp Effort and Inspection: tachypneic Auscultation: diminished lung sounds Cardio S1 normal heart sound and S2 normal heart sound Rhythm: abnormal rhythm GI normal to inspection, nondistended, normoactive bowel sounds Extremity no clubbing, cyanosis or edema Skin no rashes or lesions noted Neuro moves all extremities and no focal motor deficits Psych Mood & Affect: flat affect Charges/Coding Visit Charges Inpatient E&M: 99953 Subs Hosp L3
--- NOTE | 2020-12-13 07:11 | PN.HOSP_ITS ---
Subjective Subjective Patient seen remains in ICU on high flow oxygen. Has been alternating between BiPAP at night as well as Vapotherm during the day Objective Data Objective Data Vital Signs: Vital Signs Temp Pulse Resp BP Pulse Ox 97.8 F 90 22 H 133/70 H 98 12/13/20 04:49 12/13/20 07:00 12/13/20 07:00 12/13/20 07:00 12/13/20 07:00 Oxygen Flow Rate (L/min) 60 Oxygen Delivery Method Bi-pap Weight: 103 kg Body Mass Index (BMI) 30.5 Intake & Output: Intake and Output for Last 24 Hours 12/11/20 12/12/20 12/13/20 23:59 23:59 23:59 Intake Total 220 / 220 360 / 360 120 / 120 Output Total 1875 / 2075 1450 / 1450 400 / 400 Balance -1655 / -1855 -1090 / -1090 -280 / -280 Lab / Micro Data Result Diagrams: 12/13/20 04:40 12/13/20 04:40 Labs: Laboratory Results - last 24 hr 12/12/20 11:25: MRSA (PCR) Negative 12/12/20 11:48: POC Glucose 110 12/12/20 17:48: POC Glucose 180 H 12/12/20 20:45: POC Glucose 165 H 12/13/20 04:40: WBC 7.1, RBC 4.81, Hgb 14.7, Hct 43.3, MCV 90.0, MCH 30.6, MCHC 33.9, RDW Std Deviation 43.8, RDW Coeff of Anabella 13.2, Plt Count 267, MPV 10.5, Immature Gran % (Auto) 0.600, Neut % (Auto) 89.7 H, Lymph % (Auto) 7.8 L, Reagan % (Auto) 1.4, Eos % (Auto) 0.4, Baso % (Auto) 0.1, Absolute Neuts (auto) 6.3, Absolute Lymphs (auto) 0.55 L, Nucleated RBC % 0 12/13/20 04:40: Sodium 137, Potassium 4.6, Chloride 97 L, Carbon Dioxide 31.0, Anion Gap 9, BUN 51 H, Creatinine 1.44 H, Estim Creat Clear Calc 53.12, Est GFR (MDRD) Af Amer 62, Est GFR (MDRD) Non-Af 51 L, BUN/Creatinine Ratio 35.4 H, Glucose 126 H, Calcium 8.8, Magnesium 2.0, Total Bilirubin 1.20 H, AST 73 H, ALT 112 H, Alkaline Phosphatase 86, Total Protein 6.8, Albumin 1.8 L, Globulin 5.0 H , Albumin/Globulin Ratio 0.4 L Micro: Microbiology 12/12/20 20:45 Urine, Clean Catch Legionella Antigen - Final 12/12/20 20:45 Urine, Clean Catch Streptococcus pneumoniae Antigen (M - Final 12/12/20 10:45 Mucosa - Nasopharyngeal Respiratory Panel (PCR) - Final 12/07/20 21:35 Blood Culture (Wb) - Right Hand Blood Culture - Preliminary No growth in 48 hours. 12/07/20 21:35 Blood Culture (Wb) - Anticubital Left Blood Culture - Preliminary No growth in 48 hours. 12/07/20 21:42 Nasal Secretion SARS-CoV-2 Antigen (Rapid) - Final SARS-CoV-2 (COVID 19) Radiography Diagnostic Testing: Radiology Impression Chest X-Ray 12/12/20 08:20 IMPRESSION: Patchy bibasilar infiltrates more prominent on the left side. Follow-up is recommended. Electronically Signed: Tyler Mitchell MD at 13:06 EDT , Service support , Physical Exam Narrative GENERAL: Dyspneic at rest on BiPAP HEENT: Atraumatic; EYES; Anicteric, Normal Conjunctiva NECK; supple, normal thyroid, RESPIRATORY: Diminished to auscultation CARDIOVASCULAR: Regular S1 S2, GI: soft, normoactive bowel sounds, : No Renal angle tenderness; EXTREMITIES: No edema, no clubbing, MUSCULOSKELETAL: no muscle waisting NEURO: Awake; no lateralizing signs. SKIN: No Rash PSYCH; Flat affect Assessment & Plan Assessment/Plan (1) Acute hypoxemic respiratory failure: (2) Obesity (BMI 30-39.9): (3) Atrial fibrillation with rapid ventricular response: (4) COVID-19: PLAN: Patient is a 75-year-old gentleman unvaccinated against COVID-19 who presented with progressive shortness of breath and assessment of acute hypoxic respiratory failure secondary to SARS-CoV-2 pneumonia made admitted to the intensive care unit where patient is currently being managed 1. Acute hypoxic respiratory failure ?Secondary to SARS-CoV-2 pneumonia. Currently being managed with Decadron as well as noninvasive ventilation via BiPAP. Patient was deemed not a candidate for baricitinib as well as remdesivir -12/13/2020;Patient seen remains in ICU on high flow oxygen. Has been alternating between BiPAP at night as well as Vapotherm during the day 2. A. fib with RVR ?This was present on admission heart rate subsequently well controlled. Currently on metoprolol 3. Aortic valve disease ?With history of Mookie Godinez bovine pericardial valve replacement in 2013 4. Diabetes mellitus type II -patient's oral hypoglycemics held. Placed on long acting insulin, Accu-Cheks a.c. and at bedtime and covered with sliding scale insulin 5. Hypomagnesemia ?Corrected per protocol 6. Hypertension - Blood pressure controlled, home medications continued with dose adjustment as needed 7. BPH ?On tamsulosin 8. DVT prophylaxis ?Lovenox Charges/Coding Visit Charges Inpatient E&M: 43002 Subs Hosp L3
[2020-12-13 08:50] LABS: Bedside Glucose 115 mg/dL (70-110)
[2020-12-13] MEDS: Enoxaparin 120 MG/0.8 ML Syringe 110 MG SC ×2 (10:17→19:41)
[2020-12-13] MEDS: Aspirin 81 MG TAB.CHEW 162 MG PO (10:17)
[2020-12-13] MEDS: Metoprolol(XL)Succ 25 MG Tablet 75 MG PO (10:18)
[2020-12-13] MEDS: dexAMETHasone 10 MG/ML Vial 6 MG IV (10:18)
[2020-12-13] MEDS: guaiFENesin 600 MG Tablet PO ×2 (10:23→19:41)
--- NOTE | 2020-12-13 11:12 | CASEMGMT ---
Addendum entered by Chelle Trujillo 12/13/20 11:33: Nurse manager advanced also reminded SW they can do Facetime calls w/family. And ICU staff also reminded SW that family who is positive for COVID at present should also not be coming in to visit. ROMANA called magda Payne back a second time to let him know this information. The call went to [facility], SW left a message letting him know this information. BILL Ochoa Original Note: SW participated in ICU rounds this morning. Son Elmer called in to inquire about visitation, as he would like for 3 people to come in to see pt at a time, and to stay longer. Son states pt has 10 children and they are hoping 2 children can accompany pt's into the hospital. Son also asked about hospice, and if this would change visitation. SW addressed the hospice question, explained that to change to hospice means we are changing the goals of care from treatment to comfort, and this also may not change visitation. SW explained if pt were to go with hospice, there is a chance he would be moved to the inpt hospice unit if he would qualify. SW explained will check about visitation today, but it is not likely anything will change given that pt is still in isolation. SW spoke w/bedside RN, she states spoke w/son already and said two people can come in to visit, and two hours is the maximum visitation allowed. manager game also confirmed this, and that visitation would not change should change to hospice while here. Also, every day family will need to check to see what will be allowed for that day in regard to visitation. ROMANA called son back, message left stating that today 2 people can visit, for a maximum of 2 hours. SW also left in the message that family will need to check in daily to see what visitation will be for that day, as it will depend on how the pt is doing and on what is going on in the ICU overall. SW left number for son to return SW call should he have additional questions. BILL Ochoa
[2020-12-13 12:21] LABS: Bedside Glucose 146 mg/dL (70-110)
[2020-12-13] MEDS: Insulin Lispro 100 UNIT/ML INSULN.PEN SC ×2 (16:13→19:42)
[2020-12-13 16:25] LABS: Bedside Glucose 254 mg/dL (70-110)
[2020-12-13] MEDS: Tamsulosin HCl 0.4 MG Capsule PO (19:41)
[2020-12-13 19:51] LABS: Bedside Glucose 247 mg/dL (70-110)
[2020-12-13] MEDS: traZODone 50 MG Tablet PO (22:18)
[2020-12-14] VITALS (23 sets, daily range): BP systolic 81–134; BP diastolic 55–88; PULSE 56–107; RESP 14–23; TEMP 35.8–37; O2SAT 89–98
[2020-12-14 03:59] LABS: Hematocrit 42.3 % (40-54); Hemoglobin 14.5 g/dL (13.0-16.5); Mean Corp Hgb Conc 34.3 g/dL (32-36); Mean Corpuscular Hgb 30.6 pg (27.0-32.0); Mean Corpuscular Volume 89.2 fL (80-94); Mean Platelet Vol. 10.7 fl (6.2-12.0); Platelet Count 282 K/mm3 (150-450); RBC Distribution Width CV 13.3 % (11.6-14.6); RBC Distribution Width SD 43.5 fl (35.1-43.9); Red Blood Count 4.74 M/mm3 (4.6-6.2); White Blood Count 6.6 K/mm3 (4.4-11.0)
[2020-12-14 04:16] LABS: ALB/GLOB Ratio 0.3 RATIO (0.9-2.4); AST(SGOT) 70 U/L (15-37); Alanine Aminotransfer ALT/SGPT 106 U/L (16-61); Albumin, Serum 1.8 g/dL (3.2-5.0); Alkaline Phosphatase 88 U/L (45-117); Anion Gap 8 (5-15); BUN 49 mg/dL (7-18); BUN/Creat Ratio 37.4 RATIO (10-20); Calcium,Total 8.9 mg/dL (8.5-10.1); Chloride 98 mmol/L (98-107); Creatinine, Serum 1.31 mg/dL (0.70-1.30); EST Glomerular Filtration Rate 57 mL/min (>60); Est Glom Filt Rate - Afr Amer 69 mL/min (>60); Estimated Creatinine Clearance 58.39 ml/min; Globulin 5.3 g/dL (2.2-4.2); Glucose 184 mg/dL (74-106); Potassium 4.7 mmol/L (3.5-5.1); Protein, Total 7.1 g/dL (6.4-8.2); Sodium Level 134 mmol/L (136-145)
[2020-12-14] MEDS: Insulin Lispro 100 UNIT/ML INSULN.PEN SC ×4 (05:14→22:21)
--- NOTE | 2020-12-14 06:26 | PN.CC_ITS ---
Assessment & Plan Assessment/Plan (1) COVID-19: (2) Acute hypoxemic respiratory failure: (3) Atrial fibrillation with rapid ventricular response: (4) H/O aortic valve replacement: (5) Type 2 diabetes mellitus: PLAN: RECOMMENDATIONS: 1. Continue to wean FiO2 to maintain oxygen saturations at or above 90%. 2. Continue Lovenox as ordered. 3. Continue Decadron to complete 10-day treatment course. 4. IV Lasix as needed to maintain euvolemic state. 5. Awake prone positioning was encouraged. IMPRESSIONS: 1. Acute hypoxic respiratory failure secondary to COVID-19 pneumonia The patient initially presented to the hospital with approximately 12 days of progressive Covid symptoms and hypoxemia. CTA chest showed no evidence for pulm onary embolism. However, D-dimer was elevated. Therefore, the patient will be continued on therapeutic Lovenox. In addition, the patient has already been initiated on Decadron. He was outside of the window for remdesivir administration. Plan to continue intermittent diuretic therapy, as needed, to maintain euvolemic state. The patient will also be continued on Airvo therapy as tolerated to maintain an oxygen saturation at or above 90%. If the patient decompensates further from a clinical perspective, will start empiric antimicrobials. 2. A. fib with RVR/history of aortic valve replacement Continue current medical management including systemic anticoagulation and beta- rainer regimen. 3. Essential hypertension/hyperlipidemia/type 2 diabetes mellitus/advanced age/obesity/delayed presentation/nonvaccinated status Complicates care, management, recovery and prognosis. Continue Lantus and sliding scale insulin coverage. This note was generated with [employer] dictation software. It may contain incorrect words, spelling, and punctuation that were not noted in checking the note before signing. Subjective Subjective The patient was seen and examined at the bedside this morning. Events from the last 24 hours have been reviewed. The patient is currently afebrile, hemodynamically stable and maintaining appropriate oxygen saturations on Airvo heated high flow with an FiO2 requirement of 80% and flow rate of 60 L/min. The patient did not go back on BiPAP overnight. He has remained in his chair throughout the course of the night as well. He is currently documented to be overall net -5 L for the hospital admission. He remains on therapeutic Lovenox and Decadron. Creatinine is improved this morning to 1.3. Objective Data Objective Data The patient's most recent lab work, culture data and imaging studies have all been personally reviewed. Surface echocardiogram dated October 2020 demonstrated moderate concentric LVH with an ejection fraction of 60% and stage I diastolic dysfunction. Rapid coronavirus antigen testing was positive on December 07. Blood cultures have not demonstrated any growth to date. Vital Signs: Vital Signs Temp Pulse Resp BP Pulse Ox 98.6 F 72 18 115/71 96 12/14/20 04:00 12/14/20 06:00 12/14/20 06:00 12/14/20 06:00 12/14/20 06:00 Oxygen Flow Rate (L/min) 60 Oxygen Delivery Method Airvo Weight: 103 kg Body Mass Index (BMI) 30.5 Intake & Output: Intake and Output for Last 24 Hours 12/12/20 12/13/20 12/14/20 23:59 23:59 23:59 Intake Total 360 / 360 1050 / 1050 Output Total 1450 / 1450 1300 / 1300 0 / 0 Balance -1090 / -1090 -250 / -250 0 / 0 Lab / Micro Data Attestation: I reviewed the patient's lab results. Result Diagrams: 12/14/20 04:00 12/14/20 04:00 Labs: Laboratory Results - last 24 hr 12/13/20 08:41: POC Glucose 115 H 12/13/20 11:56: POC Glucose 146 H 12/13/20 16:07: POC Glucose 254 H 12/13/20 19:39: POC Glucose 247 H 12/14/20 04:00: WBC 6.6, RBC 4.74, Hgb 14.5, Hct 42.3, MCV 89.2, MCH 30.6, MCHC 34.3, RDW Std Deviation 43.5, RDW Coeff of Anabella 13.3, Plt Count 282, MPV 10.7 12/14/20 04:00: Sodium 134 L, Potassium 4.7, Chloride 98, Carbon Dioxide 28.0, Anion Gap 8, BUN 49 H, Creatinine 1.31 H, Estim Creat Clear Calc 58.39, Est GFR (MDRD) Af Amer 69, Est GFR (MDRD) Non-Af 57 L, BUN/Creatinine Ratio 37.4 H, Glucose 184 H, Calcium 8.9, Total Bilirubin 1.00, AST 70 H, ALT 106 H, Alkaline Phosphatase 88, Total Protein 7.1, Albumin 1.8 L, Globulin 5.3 H, Alb umin/Globulin Ratio 0.3 L Micro: Microbiology 12/07/20 21:35 Blood Culture (Wb) - Right Hand Blood Culture - Final No growth in 5 days. 12/07/20 21:35 Blood Culture (Wb) - Anticubital Left Blood Culture - Final No growth in 5 days. 12/12/20 20:45 Urine, Clean Catch Legionella Antigen - Final 12/12/20 20:45 Urine, Clean Catch Streptococcus pneumoniae Antigen (M - Final 12/12/20 10:45 Mucosa - Nasopharyngeal Respiratory Panel (PCR) - Final 12/07/20 21:42 Nasal Secretion SARS-CoV-2 Antigen (Rapid) - Final SARS-CoV-2 (COVID 19) Physical Exam Const alert and no apparent distress Constitutional Narrative: Currently tolerating heated high flow oxygen. Sitting in bedside recliner. General Appearance: cooperative HEENT normocephalic and head/scalp atraumatic Eyes PERRL, EOMs intact bilaterally and conjunctivae normal Neck supple General: trachea midline Chest inspection of chest normal Resp Effort and Inspection: Negative for labored Auscultation: diminished lung sounds; Negative for rales, rhonchi or wheezes Cardio S1 normal heart sound and S2 normal heart sound Rhythm: abnormal rhythm GI normal to inspection, nondistended, normoactive bowel sounds Extremity no clubbing, cyanosis or edema Skin no rashes or lesions noted Neuro moves all extremities and no focal motor deficits Psych Mood & Affect: flat affect Charges/Coding Visit Charges Inpatient E&M: 95521 Subs Hosp L3
--- NOTE | 2020-12-14 06:58 | PN.HOSP_ITS ---
Subjective Subjective Patient up in a chair still on Airvo. Per nursing staff patient desaturated easily with activity. Patient otherwise remains in good spirits and appears to be improving clinically Objective Data Objective Data Vital Signs: Vital Signs Temp Pulse Resp BP Pulse Ox 98.6 F 72 18 115/71 96 12/14/20 04:00 12/14/20 06:00 12/14/20 06:00 12/14/20 06:00 12/14/20 06:00 Oxygen Flow Rate (L/min) 60 Oxygen Delivery Method Airvo Weight: 103 kg Body Mass Index (BMI) 30.5 Intake & Output: Intake and Output for Last 24 Hours 12/12/20 12/13/20 12/14/20 23:59 23:59 23:59 Intake Total 360 / 360 1050 / 1050 Output Total 1450 / 1450 1300 / 1300 0 / 0 Balance -1090 / -1090 -250 / -250 0 / 0 Lab / Micro Data Result Diagrams: 12/14/20 04:00 12/14/20 04:00 Labs: Laboratory Results - last 24 hr 12/13/20 08:41: POC Glucose 115 H 12/13/20 11:56: POC Glucose 146 H 12/13/20 16:07: POC Glucose 254 H 12/13/20 19:39: POC Glucose 247 H 12/14/20 04:00: WBC 6.6, RBC 4.74, Hgb 14.5, Hct 42.3, MCV 89.2, MCH 30.6, MCHC 34.3, RDW Std Deviation 43.5, RDW Coeff of Anabella 13.3, Plt Count 282, MPV 10.7 12/14/20 04:00: Sodium 134 L, Potassium 4.7, Chloride 98, Carbon Dioxide 28.0, Anion Gap 8, BUN 49 H, Creatinine 1.31 H, Estim Creat Clear Calc 58.39, Est GFR (MDRD) Af Amer 69, Est GFR (MDRD) Non-Af 57 L, BUN/Creatinine Ratio 37.4 H, Glucose 184 H, Calcium 8.9, Total Bilirubin 1.00, AST 70 H, ALT 106 H, Alkaline Phosphatase 88, Total Protein 7.1, Albumin 1.8 L, Globulin 5.3 H, Albumin/Globulin Ratio 0.3 L Micro: Microbiology 10/13/21 21:35 Blood Culture (Wb) - Right Hand Blood Culture - Final No growth in 5 days. 12/07/20 21:35 Blood Culture (Wb) - Anticubital Left Blood Culture - Final No growth in 5 days. 12/12/20 20:45 Urine, Clean Catch Legionella Antigen - Final 12/12/20 20:45 Urine, Clean Catch Streptococcus pneumoniae Antigen (M - Final 12/12/20 10:45 Mucosa - Nasopharyngeal Respiratory Panel (PCR) - Final 12/07/20 21:42 Nasal Secretion SARS-CoV-2 Antigen (Rapid) - Final SARS-CoV-2 (COVID 19) Physical Exam Narrative GENERAL: Dyspneic at rest on BiPAP HEENT: Atraumatic; EYES; Anicteric, Normal Conjunctiva NECK; supple, normal thyroid, RESPIRATORY: Diminished to auscultation CARDIOVASCULAR: Regular S1 S2, GI: soft, normoactive bowel sounds, : No Renal angle tenderness; EXTREMITIES: No edema, no clubbing, MUSCULOSKELETAL: no muscle waisting NEURO: Awake; no lateralizing signs. SKIN: No Rash PSYCH; Flat affect Assessment & Plan Assessment/Plan (1) Acute hypoxemic respiratory failure: (2) Obesity (BMI 30-39.9): (3) Atrial fibrillation with rapid ventricular response: (4) COVID-19: PLAN: Patient is a 75-year-old gentleman unvaccinated against COVID-19 who presented with progressive shortness of breath and assessment of acute hypoxic respiratory failure secondary to SARS-CoV-2 pneumonia made admitted to the intensive care unit where patient is currently being managed 1. Acute hypoxic respiratory failure ?Secondary to SARS-CoV-2 pneumonia. Currently being managed with Decadron as well as noninvasive ventilation via BiPAP. Patient was deemed not a candidate for baricitinib as well as remdesivir -12/13/2020;Patient seen remains in ICU on high flow oxygen. Has been alternating between BiPAP at night as well as Vapotherm during the day - 12/14/2020; Patient up in a chair still on Airvo. Per nursing staff patient desaturated easily with activity 2. A. fib with RVR ?This was present on admission heart rate subsequently well controlled. Curre ntly on metoprolol 3. Aortic valve disease ?With history of Mookie Godinez bovine pericardial valve replacement in 2013 4. Diabetes mellitus type II -patient's oral hypoglycemics held. Placed on long acting insulin, Accu-Cheks a.c. and at bedtime and covered with sliding scale insulin 5. Hypomagnesemia ?Corrected per protocol 6. Hypertension - Blood pressure controlled, home medications continued with dose adjustment as needed 7. BPH ?On tamsulosin 8. DVT prophylaxis ?Lovenox Charges/Coding Visit Charges Inpatient E&M: 97241 Subs Hosp L2
[2020-12-14] MEDS: dexAMETHasone 10 MG/ML Vial 6 MG IV (07:47)
[2020-12-14] MEDS: Aspirin 81 MG TAB.CHEW 162 MG PO (07:47)
[2020-12-14] MEDS: Enoxaparin 120 MG/0.8 ML Syringe 110 MG SC ×2 (07:47→22:23)
[2020-12-14] MEDS: 0.9% Saline Lock 10 ML Syringe IV (07:47)
[2020-12-14] MEDS: guaiFENesin 600 MG Tablet PO ×2 (07:48→22:21)
[2020-12-14] MEDS: Metoprolol(XL)Succ 25 MG Tablet 75 MG PO (07:48)
[2020-12-14 12:10] LABS: Bedside Glucose 184 mg/dL (70-110)
--- NOTE | 2020-12-14 12:59 | NURSING ---
report called to MEREDITH Boyce RN
[2020-12-14 13:36] LABS: Bedside Glucose 212 mg/dL (70-110)
[2020-12-14 17:31] LABS: Bedside Glucose 330 mg/dL (70-110)
--- NOTE | 2020-12-14 20:45 | PCS.PANDOC ---
PANDEMIC DOCUMENTATION INITIATED: Date: 10/10/2020 Time: 190
[2020-12-14] MEDS: Tamsulosin HCl 0.4 MG Capsule PO (22:21)
[2020-12-14] MEDS: traZODone 50 MG Tablet PO (22:47)
[2020-12-14 22:56] LABS: Bedside Glucose 306 mg/dL (70-110)
[2020-12-15] VITALS (16 sets, daily range): BP systolic 124–141; BP diastolic 60–78; PULSE 60–87; RESP 12–22; TEMP 36.3–36.4; O2SAT 89–97
[2020-12-15 06:36] LABS: Hematocrit 40.7 % (40-54); Mean Corp Hgb Conc 34.4 g/dL (32-36); Mean Corpuscular Hgb 30.7 pg (27.0-32.0); Mean Corpuscular Volume 89.3 fL (80-94); Platelet Count 248 K/mm3 (150-450); RBC Distribution Width CV 13.2 % (11.6-14.6); RBC Distribution Width SD 43.3 fl (35.1-43.9); Red Blood Count 4.56 M/mm3 (4.6-6.2); White Blood Count 8.4 K/mm3 (4.4-11.0)
[2020-12-15] MEDS: Insulin Lispro 100 UNIT/ML INSULN.PEN SC ×4 (06:51→21:51)
[2020-12-15 07:05] LABS: Bedside Glucose 238 mg/dL (70-110)
[2020-12-15 07:25] LABS: ALB/GLOB Ratio 0.3 RATIO (0.9-2.4); AST(SGOT) 97 U/L (15-37); Alanine Aminotransfer ALT/SGPT 132 U/L (16-61); Albumin, Serum 1.7 g/dL (3.2-5.0); Alkaline Phosphatase 100 U/L (45-117); Anion Gap 8 (5-15); BUN 50 mg/dL (7-18); BUN/Creat Ratio 43.1 RATIO (10-20); Calcium,Total 8.7 mg/dL (8.5-10.1); Chloride 103 mmol/L (98-107); Creatinine, Serum 1.16 mg/dL (0.70-1.30); EST Glomerular Filtration Rate 66 mL/min (>60); Est Glom Filt Rate - Afr Amer 79 mL/min (>60); Estimated Creatinine Clearance 65.94 ml/min; Globulin 4.9 g/dL (2.2-4.2); Glucose 237 mg/dL (74-106); Potassium 4.7 mmol/L (3.5-5.1); Protein, Total 6.6 g/dL (6.4-8.2); Sodium Level 134 mmol/L (136-145)
[2020-12-15] MEDS: Enoxaparin 120 MG/0.8 ML Syringe 110 MG SC ×2 (09:46→21:52)
[2020-12-15] MEDS: Aspirin 81 MG TAB.CHEW 162 MG PO (09:46)
[2020-12-15] MEDS: dexAMETHasone 10 MG/ML Vial 6 MG IV (09:46)
[2020-12-15] MEDS: 0.9% Saline Lock 10 ML Syringe IV ×2 (09:46→21:54)
[2020-12-15] MEDS: guaiFENesin 600 MG Tablet PO ×2 (09:47→21:52)
[2020-12-15] MEDS: Metoprolol(XL)Succ 25 MG Tablet 75 MG PO (09:47)
--- NOTE | 2020-12-15 12:35 | PCM.PN.HOSP ---
Subjective Subjective Doing well, no new issues overnight Objective Data Objective Data Vital Signs: Vital Signs Temp Pulse Resp BP Pulse Ox 97.5 F L 87 20 H 130/70 H 89 12/15/20 09:56 12/15/20 09:56 12/15/20 09:56 12/15/20 09:56 12/15/20 11:49 Oxygen Flow Rate (L/min) 60 Oxygen Delivery Method Airvo Weight: 227 lb 1.218 oz Body Mass Index (BMI) 30.5 Intake & Output: Intake and Output for Last 24 Hours 12/14/20 12/15/20 12/16/20 03:59 03:59 03:59 Intake Total 930 / 930 800 / 800 740 / 740 Output Total 1300 / 1300 850 / 850 700 / 700 Balance -370 / -370 -50 / -50 40 / 40 Lab / Micro Data Result Diagrams: 12/15/20 06:05 12/15/20 06:05 Labs: Laboratory Results - last 24 hr 12/14/20 12:04: POC Glucose 212 H 12/14/20 16:43: POC Glucose 330 H 12/14/20 22:14: POC Glucose 306 H 12/15/20 06:05: WBC 8.4, RBC 4.56 L, Hgb 14.0, Hct 40.7, MCV 89.3, MCH 30.7, MCHC 34.4, RDW Std Deviation 43.3, RDW Coeff of Anabella 13.2, Plt Count 248, MPV 11.0 12/15/20 06:05: Sodium 134 L, Potassium 4.7, Chloride 103, Carbon Dioxide 23.0, Anion Gap 8, BUN 50 H, Creatinine 1.16, Estim Creat Clear Calc 65.94, Est GFR (MDRD) Af Amer 79, Est GFR (MDRD) Non-Af 66, BUN/Creatinine Ratio 43.1 H, Glucose 237 H, Calcium 8.7, Total Bilirubin 0.70, AST 97 H, ALT 132 H, Alkaline Phosphatase 100, Total Protein 6.6, Albumin 1.7 L, Globulin 4.9 H, Albumin/Globulin Ratio 0.3 L 12/15/20 06:49: POC Glucose 238 H Micro: Microbiology 12/07/20 21:35 Blood Culture (Wb) - Right Hand Blood Culture - Final No growth in 5 days. 12/07/20 21:35 Blood Culture (Wb) - Anticubital Left Blood Culture - Final No growth in 5 days. 12/12/20 20:45 Urine, Clean Catch Legionella Antigen - Final 12/12/20 20:45 Urine, Clean Catch Streptococcus pneumoniae Antigen (M - Final 12/12/20 10:45 Mucosa - Nasopharyngeal Respiratory Panel (PCR) - Final 12/07/20 21:42 Nasal Secretion SARS-CoV-2 Antigen (Rapid) - Final SARS-CoV-2 (COVID 19) Physical Exam Const alert, oriented x3 and no apparent distress General Appearance: cooperative HEENT normocephalic and moist oral mucous membranes Eyes PERRL, EOMs intact bilaterally and conjunctivae normal Neck supple and no JVD Resp normal respiratory effort, no retractions and no use of accessory muscles Auscultation: diminished lung sounds; Negative for crackles, rales, rhonchi or wheezes Cardio regular rate, regular rhythm, S1 normal heart sound, S2 normal heart sound and no murmurs GI soft to palpation, non-tender and non-distended; Negative for hepatosplenomegaly Extremity no clubbing, cyanosis or edema Skin no rashes or lesions noted Neuro no focal motor deficits and no sensory deficits noted Psych affect normal Appearance: appropriate Assessment & Plan Assessment/Plan (1) Acute hypoxemic respiratory failure: (2) Obesity (BMI 30-39.9): (3) Atrial fibrillation with rapid ventricular response: (4) COVID-19: PLAN: 1. Acute hypoxic respiratory failure ?Secondary to SARS-CoV-2 pneumonia. Currently being managed with Decadron as well as noninvasive ventilation via BiPAP. Patient was deemed not a candidate for baricitinib as well as remdesivir -12/13/2020;Patient seen remains in ICU on high flow oxygen. Has been alternating between BiPAP at night as well as Vapotherm during the day - 12/14/2020; Patient up in a chair still on Airvo. Per nursing staff patient desaturated easily with activity \ 12/15/2020: Continue with IV Decadron. Maintaining respiratory status on air Vo may need to encourage BiPAP use at night as well if we struggle to get him off high flow oxygen. If creatinine is stable in the morning will consider dose of Lasix 2. A. fib with RVR ?This was present on admission heart rate subsequently well controlled. Currently on metoprolol 3. Aortic valve disease ?With history of Mookie Godinez bovine pericardial valve replacement in 2013 4. Diabetes mellitus type II -patient's oral hypoglycemics held. Placed on long acting insulin, Accu-Cheks a.c. and at bedtime and covered with sliding scale insulin 5. Hypomagnesemia ?Corrected per protocol 6. Hypertension - Blood pressure controlled, home medications continued with dose adjustment as needed 7. BPH ?On tamsulosin DVT: Lovenox Charges/Coding Visit Charges Inpatient E&M: 92921 Subs Hosp L2
[2020-12-15 15:46] LABS: Bedside Glucose 397 mg/dL (70-110)
[2020-12-15 17:20] LABS: Bedside Glucose 452 mg/dL (70-110)
[2020-12-15] MEDS: Tamsulosin HCl 0.4 MG Capsule PO (21:50)
[2020-12-15] MEDS: traZODone 50 MG Tablet PO (21:54)
[2020-12-15 22:00] LABS: Bedside Glucose 263 mg/dL (70-110)
[2020-12-16] VITALS (18 sets, daily range): BP systolic 118–127; BP diastolic 76–89; PULSE 61–108; RESP 12–22; TEMP 36.2–36.9; O2SAT 91–96
[2020-12-16 06:43] LABS: Absolute Lymphocyte Count 0.88 X10^3/uL (0.83-4.51); Absolute Neutrophil Count 11.7 X10^3/uL (2.0-7.7); Basophil# 0.03 X10^3/uL; Basophil% 0.2 % (0-1); Eosinophil# 0.06 X10^3/uL; Eosinophils% 0.5 % (0-5); Hematocrit 46.9 % (40-54); Hemoglobin 15.5 g/dL (13.0-16.5); Lymphocyte # 0.88 X10^3/ul (0.83-4.51); Lymphocyte % 6.8 % (19-41); Mean Corpuscular Hgb 29.9 pg (27.0-32.0); Mean Corpuscular Volume 90.4 fL (80-94); Mean Platelet Vol. 10.9 fl (6.2-12.0); Monocyte# 0.19 X10^3/uL; Monocyte% 1.5 % (0-10); NRBC Flagged by Analyzer 0 % (0-5); Neutrophil # 11.65 X10^3/uL (2.7-7.7); Neutrophil % 90.4 % (47-70); POSITIVE MORPHOLOGY YES; Platelet Count 258 K/mm3 (150-450); RBC Distribution Width CV 13.2 % (11.6-14.6); RBC Distribution Width SD 43.5 fl (35.1-43.9); Red Blood Count 5.19 M/mm3 (4.6-6.2); White Blood Count 12.9 K/mm3 (4.4-11.0)
[2020-12-16 06:51] LABS: Differential Indicated SCAN CRITERIA MET
[2020-12-16 07:06] LABS: Anion Gap 9 (5-15); BUN 41 mg/dL (7-18); BUN/Creat Ratio 40.2 RATIO (10-20); Calcium,Total 9.3 mg/dL (8.5-10.1); Chloride 103 mmol/L (98-107); Creatinine, Serum 1.02 mg/dL (0.70-1.30); EST Glomerular Filtration Rate 76 mL/min (>60); Est Glom Filt Rate - Afr Amer 92 mL/min (>60); Estimated Creatinine Clearance 74.99 ml/min; Glucose 85 mg/dL (74-106); Potassium 4.5 mmol/L (3.5-5.1); Sodium Level 138 mmol/L (136-145)
[2020-12-16 07:17] LABS: Differential Comment SCANNED
[2020-12-16 08:35] LABS: Bedside Glucose 137 mg/dL (70-110)
[2020-12-16] MEDS: Insulin Lispro 100 UNIT/ML INSULN.PEN 10 UNIT SC ×3 (08:53→17:26)
[2020-12-16] MEDS: 0.9% Saline Lock 10 ML Syringe IV ×2 (08:53→15:00)
--- NOTE | 2020-12-16 10:02 | PN.CC_ITS ---
Assessment & Plan Assessment/Plan (1) COVID-19: (2) Acute hypoxemic respiratory failure: (3) Atrial fibrillation with rapid ventricular response: (4) H/O aortic valve replacement: (5) Type 2 diabetes mellitus: PLAN: RECOMMENDATIONS: 1. Continue to wean supplemental oxygen to maintain saturations at or above 90%. 2. Continue Lovenox as ordered. 3. Continue Decadron to complete 10-day treatment course. 4. IV Lasix as needed to maintain euvolemic state. 5. Awake prone positioning was encouraged. 6. Perform walking oximetry prior to consideration for discharge home. 7. Given improving oxygenation status, will sign off. Please call with any additional questions. IMPRESSIONS: 1. Acute hypoxic respiratory failure secondary to COVID-19 pneumonia The patient initially presented to the hospital with approximately 12 days of pr ogressive Covid symptoms and hypoxemia. CTA chest showed no evidence for pulmonary embolism. However, D-dimer was elevated. Therefore, the patient will be continued on therapeutic Lovenox and Decadron. He was outside of the window for remdesivir administration. Plan to continue intermittent diuretic therapy, as needed, to maintain euvolemic state. The patient will also be continued on supplemental oxygen to maintain saturation at or above 90%. 2. A. fib with RVR/history of aortic valve replacement Continue current medical management including systemic anticoagulation and beta- rainer regimen. 3. Essential hypertension/hyperlipidemia/type 2 diabetes mellitus/advanced age/obesity/delayed presentation/nonvaccinated status Complicates care, management, recovery and prognosis. Continue Lantus and sliding scale insulin coverage. This note was generated with [employer] dictation software. It may contain incorrect words, spelling, and punctuation that were not noted in checking the note before signing. Subjective Subjective The patient was seen and examined at the bedside this morning. Events from the last 24 hours have been reviewed. The patient is currently afebrile, hemodynamically stable and maintaining appropriate oxygen saturations on nasal c annula at 9 L/min. The patient is currently documented to be overall net -5.5 L for the hospitalization. The patient remains on therapeutic Lovenox and Decadron. Creatinine is stable. Objective Data Objective Data The patient's most recent lab work, culture data and imaging studies have all been personally reviewed. Surface echocardiogram dated October 2020 demonstrated moderate concentric LVH with an ejection fraction of 60% and stage I diastolic dysfunction. Rapid coronavirus antigen testing was positive on Oc tober 13. Blood cultures have not demonstrated any growth to date. Vital Signs: Vital Signs Temp Pulse Resp BP Pulse Ox 97.7 F L 83 18 118/79 95 12/16/20 04:06 12/16/20 07:38 12/16/20 04:06 12/16/20 04:06 12/16/20 04:06 Oxygen Flow Rate (L/min) 9 Oxygen Delivery Method Nasal Cannula Weight: 103 kg Body Mass Index (BMI) 30.5 Intake & Output: Intake and Output for Last 24 Hours 12/14/20 12/15/20 12/16/20 23:59 23:59 23:59 Intake Total 800 / 800 1180 / 1480 600 / 600 Output Total 850 / 850 1150 / 1750 1000 / 1000 Balance -50 / -50 30 / -270 -400 / -400 Lab / Micro Data Attestation: I reviewed the patient's lab results. Result Diagrams: 12/16/20 06:10 12/16/20 06:10 Labs: Laboratory Results - last 24 hr 12/15/20 11:47: POC Glucose 397 H 12/15/20 17:04: POC Glucose 452 H* 12/15/20 21:44: POC Glucose 263 H 12/16/20 06:10: WBC 12.9 H, RBC 5.19, Hgb 15.5, Hct 46.9, MCV 90.4, MCH 29.9, MCHC 33.0, RDW Std Deviation 43.5, RDW Coeff of Anabella 13.2, Plt Count 258, MPV 10.9, Immature Gran % (Auto) 0.600, Neut % (Auto) 90.4 H, Lymph % (Auto) 6.8 L, [place] % (Auto) 1.5, Eos % (Auto) 0.5, Baso % (Auto) 0.2, Absolute Neuts (auto) 11.7 H, Absolute Lymphs (auto) 0.88, Nucleated RBC % 0, Differential Comment SCANNED 12/16/20 06:10: Sodium 138, Potassium 4.5, Chloride 103, Carbon Dioxide 26.0, Anion Gap 9, BUN 41 H, Creatinine 1.02, Estim Creat Clear Calc 74.99, Est GFR (MDRD) Af Amer 92, Est GFR (MDRD) Non-Af 76, BUN/Creatinine Ratio 40.2 H, Glucose 85, Calcium 9.3 12/16/20 08:27: POC Glucose 137 H Micro: Microbiology 12/07/20 21:35 Blood Culture (Wb) - Right Hand Blood Culture - Final No growth in 5 days. 12/07/20 21:35 Blood Culture (Wb) - Anticubital Left Blood Culture - Final No growth in 5 days. 12/12/20 20:45 Urine, Clean Catch Legionella Antigen - Final 12/12/20 20:45 Urine, Clean Catch Streptococcus pneumoniae Antigen (M - Final 12/12/20 10:45 Mucosa - Nasopharyngeal Respiratory Panel (PCR) - Final 12/07/20 21:42 Nasal Secretion SARS-CoV-2 Antigen (Rapid) - Final SARS-CoV-2 (COVID 19) Physical Exam Const alert and no apparent distress General Appearance: cooperative HEENT normocephalic and head/scalp atraumatic Eyes PERRL, EOMs intact bilaterally and conjunctivae normal Neck supple General: trachea midline Chest inspection of chest normal Resp Effort and Inspection: Negative for labored Auscultation: diminished lung sounds; Negative for rales, rhonchi or wheezes Cardio regular rate, S1 normal heart sound and S2 normal heart sound GI normal to inspection, nondistended, normoactive bowel sounds Extremity no clubbing, cyanosis or edema Skin no rashes or lesions noted Neuro moves all extremities and no focal motor deficits Psych cooperative and affect normal Charges/Coding Visit Charges Inpatient E&M: 42228 Subs Hosp L2
[2020-12-16] MEDS: Aspirin 81 MG TAB.CHEW 162 MG PO (11:02)
[2020-12-16] MEDS: dexAMETHasone 10 MG/ML Vial 6 MG IV (11:03)
[2020-12-16] MEDS: Enoxaparin 120 MG/0.8 ML Syringe 110 MG SC ×2 (11:04→22:02)
[2020-12-16] MEDS: guaiFENesin 600 MG Tablet PO ×2 (11:05→22:01)
[2020-12-16] MEDS: Metoprolol(XL)Succ 25 MG Tablet 75 MG PO (11:06)
[2020-12-16] MEDS: Insulin Lispro 100 UNIT/ML INSULN.PEN SC ×3 (11:06→22:00)
[2020-12-16 11:16] LABS: Bedside Glucose 257 mg/dL (70-110)
--- NOTE | 2020-12-16 13:09 | PN.HOSP_ITS ---
Subjective Subjective Doing well, was transitioned to nasal cannula last evening. We will try him with a dose of Lasix today. May need a break with BiPAP overnight Objective Data Objective Data Vital Signs: Vital Signs Temp Pulse Resp BP Pulse Ox 97.5 F L 82 16 124/76 H 94 12/16/20 10:30 12/16/20 11:06 12/16/20 10:30 12/16/20 11:06 12/16/20 10:30 Oxygen Flow Rate (L/min) 15 Oxygen Delivery Method Nasal Cannula Weight: 227 lb 1.218 oz Body Mass Index (BMI) 30.5 Intake & Output: Intake and Output for Last 24 Hours 12/15/20 12/16/20 12/17/20 03:59 03:59 03:59 Intake Total 800 / 800 1480 / 1480 700 / 700 Output Total 850 / 850 1750 / 1750 400 / 400 Balance -50 / -50 -270 / -270 300 / 300 Lab / Micro Data Result Diagrams: 12/16/20 06:10 12/16/20 06:10 Labs: Laboratory Results - last 24 hr 12/15/20 11:47: POC Glucose 397 H 12/15/20 17:04: POC Glucose 452 H* 12/15/20 21:44: POC Glucose 263 H 12/16/20 06:10: WBC 12.9 H, RBC 5.19, Hgb 15.5, Hct 46.9, MCV 90.4, MCH 29.9, MCHC 33.0, RDW Std Deviation 43.5, RDW Coeff of Anabella 13.2, Plt Count 258, MPV 10.9, Immature Gran % (Auto) 0.600, Neut % (Auto) 90.4 H, Lymph % (Auto) 6.8 L, [place] % (Auto) 1.5, Eos % (Auto) 0.5, Baso % (Auto) 0.2, Absolute Neuts (auto) 11.7 H, Absolute Lymphs (auto) 0.88, Nucleated RBC % 0, Differential Comment SCA NNED 12/16/20 06:10: Sodium 138, Potassium 4.5, Chloride 103, Carbon Dioxide 26.0, Anion Gap 9, BUN 41 H, Creatinine 1.02, Estim Creat Clear Calc 74.99, Est GFR (MDRD) Af Amer 92, Est GFR (MDRD) Non-Af 76, BUN/Creatinine Ratio 40.2 H, Glucose 85, Calcium 9.3 12/16/20 08:27: POC Glucose 137 H 12/16/20 11:01: POC Glucose 257 H Micro: Microbiology 12/07/20 21:35 Blood Culture (Wb) - Right Hand Blood Culture - Final No growth in 5 days. 12/07/20 21:35 Blood Culture (Wb) - Anticubital Left Blood Culture - Final No growth in 5 days. 12/12/20 20:45 Urine, Clean Catch Legionella Antigen - Final 12/12/20 20:45 Urine, Clean Catch Streptococcus pneumoniae Antigen (M - Final 12/12/20 10:45 Mucosa - Nasopharyngeal Respiratory Panel (PCR) - Final 12/07/20 21:42 Nasal Secretion SARS-CoV-2 Antigen (Rapid) - Final SARS-CoV-2 (COVID 19) Physical Exam Const alert, oriented x3 and no apparent distress General Appearance: cooperative HEENT normocephalic and moist oral mucous membranes Eyes PERRL, EOMs intact bilaterally and conjunctivae normal Neck supple and no JVD Resp normal respiratory effort, no retractions and no use of accessory muscles Auscultation: crackles and diminished lung sounds; Negative for rales, rhonchi or wheezes Cardio regular rate, regular rhythm, S1 normal heart sound, S2 normal heart sound and no murmurs GI soft to palpation, non-tender and non-distended; Negative for hepatosplenomegaly Extremity no clubbing, cyanosis or edema Skin no rashes or lesions noted Neuro no focal motor deficits and no sensory deficits noted Psych affect normal Appearance: appropriate Assessment & Plan Assessment/Plan (1) Acute hypoxemic respiratory failure: (2) Obesity (BMI 30-39.9): (3) Atrial fibrillation with rapid ventricular response: (4) COVID-19: PLAN: . 1. Acute hypoxic respiratory failure ?Secondary to SARS-CoV-2 pneumonia. Currently being managed with Decadron as well as noninvasive ventilation via BiPAP. Patient was deemed not a candidate for baricitinib as well as remdesivir -12/13/2020;Patient seen remains in ICU on high flow oxygen. Has been alternating between BiPAP at night as well as Vapotherm during the day - 12/14/2020; Patient up in a chair still on Airvo. Per nursing staff patient desaturated easily with activity \ 12/15/2020: Continue with IV Decadron. Maintaining respiratory status on air Vo may need to encourage BiPAP use at night as well if we struggle to get him off high flow oxygen. If creatinine is stable in the morning will consider dose of Lasix 12/16/2020: Creatinine is improved today so we will trial him on the dose of Lasix and see if that helps maintain his oxygen status. May need to be on BiPAP overnight to help with recruitment. There was a slight increase in his white count this is likely related to the Decadron, he remains afebrile. 2. A. fib with RVR ?This was present on admission heart rate subsequently well controlled. Currently on metoprolol 3. Aortic valve disease ?With history of Mookie Godinez bovine pericardial valve replacement in 2013 4. Diabetes mellitus type II -patient's oral hypoglycemics held. Placed on long acting insulin, Accu-Cheks a.c. and at bedtime and covered with sliding scale insulin 5. Hypomagnesemia ?Corrected per protocol 6. Hypertension - Blood pressure controlled, home medications continued with dose adjustment as needed 7. BPH ?On tamsulosin DVT: Lovenox Charges/Coding Visit Charges Inpatient E&M: 22493 Subs Hosp L2
[2020-12-16] MEDS: Furosemide 40 MG/4 ML Vial IV (15:00)
[2020-12-16 17:40] LABS: Bedside Glucose 352 mg/dL (70-110)
[2020-12-16] MEDS: Tamsulosin HCl 0.4 MG Capsule PO (22:01)
[2020-12-16 23:06] LABS: Bedside Glucose 296 mg/dL (70-110)
--- NOTE | 2020-12-16 23:51 | CPS ---
Pt. adamantly refusing BiPAP at this time. Maintaining appropriate saturations at this time. Pt. will be observed closely throughout the night.
[2020-12-17] VITALS (14 sets, daily range): BP systolic 109–136; BP diastolic 66–92; PULSE 58–87; RESP 15–20; TEMP 36.3–36.9; O2SAT 90–96
[2020-12-17 05:44] LABS: Absolute Lymphocyte Count 0.81 X10^3/uL (0.83-4.51); Absolute Neutrophil Count 12.4 X10^3/uL (2.0-7.7); Basophil# 0.02 X10^3/uL; Basophil% 0.1 % (0-1); Eosinophil# 0.06 X10^3/uL; Eosinophils% 0.4 % (0-5); Hematocrit 44.1 % (40-54); Hemoglobin 14.7 g/dL (13.0-16.5); Lymphocyte # 0.81 X10^3/ul (0.83-4.51); Lymphocyte % 5.9 % (19-41); Mean Corp Hgb Conc 33.3 g/dL (32-36); Mean Corpuscular Hgb 30.2 pg (27.0-32.0); Mean Corpuscular Volume 90.6 fL (80-94); Mean Platelet Vol. 11.1 fl (6.2-12.0); Monocyte# 0.25 X10^3/uL; Monocyte% 1.8 % (0-10); NRBC Flagged by Analyzer 0 % (0-5); Neutrophil % 91.1 % (47-70); Platelet Count 204 K/mm3 (150-450); RBC Distribution Width CV 13.2 % (11.6-14.6); RBC Distribution Width SD 44.1 fl (35.1-43.9); Red Blood Count 4.87 M/mm3 (4.6-6.2); White Blood Count 13.6 K/mm3 (4.4-11.0)
[2020-12-17 06:34] LABS: Anion Gap 8 (5-15); BUN 40 mg/dL (7-18); BUN/Creat Ratio 36.4 RATIO (10-20); Chloride 101 mmol/L (98-107); EST Glomerular Filtration Rate 70 mL/min (>60); Est Glom Filt Rate - Afr Amer 84 mL/min (>60); Estimated Creatinine Clearance 69.54 ml/min; Glucose 296 mg/dL (74-106); Potassium 4.4 mmol/L (3.5-5.1); Sodium Level 135 mmol/L (136-145)
[2020-12-17] MEDS: Benzonatate 100 MG Capsule PO (07:44)
[2020-12-17] MEDS: Insulin Lispro 100 UNIT/ML INSULN.PEN 10 UNIT SC ×3 (07:44→16:21)
[2020-12-17] MEDS: Insulin Lispro 100 UNIT/ML INSULN.PEN SC ×4 (07:45→21:29)
[2020-12-17 07:51] LABS: Bedside Glucose 258 mg/dL (70-110)
[2020-12-17] MEDS: dexAMETHasone 10 MG/ML Vial 6 MG IV (09:20)
[2020-12-17] MEDS: 0.9% Saline Lock 10 ML Syringe IV ×2 (09:20→13:06)
[2020-12-17] MEDS: Enoxaparin 120 MG/0.8 ML Syringe 110 MG SC ×2 (09:20→21:24)
[2020-12-17] MEDS: Metoprolol(XL)Succ 25 MG Tablet 75 MG PO (09:21)
[2020-12-17] MEDS: Aspirin 81 MG TAB.CHEW 162 MG PO (09:21)
[2020-12-17] MEDS: guaiFENesin 600 MG Tablet PO ×2 (09:21→21:24)
[2020-12-17 11:25] LABS: Bedside Glucose 392 mg/dL (70-110)
--- NOTE | 2020-12-17 12:30 | PCM.PN.HOSP ---
Subjective Subjective Doing well on high flow nasal cannula. Can continue with intermittent Lasix Objective Data Objective Data Vital Signs: Vital Signs Temp Pulse Resp BP Pulse Ox 97.4 F L 66 18 125/69 H 92 12/17/20 09:17 12/17/20 09:21 12/17/20 09:17 12/17/20 09:17 12/17/20 09:17 Oxygen Flow Rate (L/min) 15 Oxygen Delivery Method Nasal Cannula Weight: 227 lb 1.218 oz Body Mass Index (BMI) 30.5 Intake & Output: Intake and Output for Last 24 Hours 12/16/20 12/17/20 12/18/20 03:59 03:59 03:59 Intake Total 1480 / 1480 1400 / 1400 Output Total 1750 / 1750 2100 / 2100 150 / 150 Balance -270 / -270 -700 / -700 -150 / -150 Lab / Micro Data Result Diagrams: 12/17/20 05:24 12/17/20 05:24 Labs: Laboratory Results - last 24 hr 12/16/20 06:10: Magnesium 2.0 12/16/20 06:10: Phosphorus 4.0 12/16/20 17:18: POC Glucose 352 H 12/16/20 21:59: POC Glucose 296 H 12/17/20 05:24: WBC 13.6 H, RBC 4.87, Hgb 14.7, Hct 44.1, MCV 90.6, MCH 30.2, MCHC 33.3, RDW Std Deviation 44.1 H, RDW Coeff of Anabella 13.2, Plt Count 204, MPV 11.1, Immature Gran % (Auto) 0.700, Neut % (Auto) 91.1 H, Lymph % (Auto) 5.9 L, [place] % (Auto) 1.8, Eos % (Auto) 0.4, Baso % (Auto) 0.1, Absolute Neuts (auto) 12.4 H, Absolute Lymphs (auto) 0.81 L, Nucleated RBC % 0 12/17/20 05:24: Sodium 135 L, Potassium 4.4, Chloride 101, Carbon Dioxide 26.0, Anion Gap 8, BUN 40 H, Creatinine 1.10, Estim Creat Clear Calc 69.54, Est GFR (MDRD) Af Amer 84, Est GFR (MDRD) Non-Af 70, BUN/Creatinine Ratio 36.4 H, Glucose 296 H, Calcium 9.0 12/17/20 07:41: POC Glucose 258 H 12/17/20 11:05: POC Glucose 392 H Micro: Microbiology 12/07/20 21:35 Blood Culture (Wb) - Right Hand Blood Culture - Final No growth in 5 days. 12/07/20 21:35 Blood Culture (Wb) - Anticubital Left Blood Culture - Final No growth in 5 days. 12/12/20 20:45 Urine, Clean Catch Legionella Antigen - Final 12/12/20 20:45 Urine, Clean Catch Streptococcus pneumoniae Antigen (M - Final 12/12/20 10:45 Mucosa - Nasopharyngeal Respiratory Panel (PCR) - Final 12/07/20 21:42 Nasal Secretion SARS-CoV-2 Antigen (Rapid) - Final SARS-CoV-2 (COVID 19) Physical Exam Const alert, oriented x3 and no apparent distress General Appearance: cooperative HEENT normocephalic and moist oral mucous membranes Eyes PERRL, EOMs intact bilaterally and conjunctivae normal Neck supple and no JVD Resp normal respiratory effort, no retractions and no use of accessory muscles Auscultation: crackles and diminished lung sounds; Negative for rales, rhonchi or wheezes Cardio regular rate, regular rhythm, S1 normal heart sound, S2 normal heart sound and no murmurs GI soft to palpation, non-tender and non-distended; Negative for hepatosplenomegaly Extremity no clubbing, cyanosis or edema Skin no rashes or lesions noted Neuro no focal motor deficits and no sensory deficits noted Psych affect normal Appearance: appropriate Assessment & Plan Assessment/Plan (1) Acute hypoxemic respiratory failure: (2) Obesity (BMI 30-39.9): (3) Atrial fibrillation with rapid ventricular response: (4) COVID-19: PLAN: . 1. Acute hypoxic respiratory failure ?Secondary to SARS-CoV-2 pneumonia. Currently being managed with Decadron as well as noninvasive ventilation via BiPAP. Patient was deemed not a candidate for baricitinib as well as remdesivir -12/13/2020;Patient seen remains in ICU on high flow oxygen. Has been alternating between BiPAP at night as well as Vapotherm during the day - 12/14/2020; Patient up in a chair still on Airvo. Per nursing staff patient desaturated easily with activity \ 12/15/2020: Continue with IV Decadron. Maintaining respiratory status on air Vo may need to encourage BiPAP use at night as well if we struggle to get him off high flow oxygen. If creatinine is stable in the morning will consider dose of Lasix 12/16/2020: Creatinine is improved today so we will trial him on the dose of Lasix and see if that helps maintain his oxygen status. May need to be on BiPAP overnight to help with recruitment. There was a slight increase in his white count this is likely related to the Decadron, he remains afebrile. -12/17/2020: We will repeat dosing of Lasix, continues off air Vo. He has completed Decadron so we will closely monitor his blood sugars and make adjustments to his insulin as necessary 2. A. fib with RVR ?This was present on admission heart rate subsequently well controlled. Currently on metoprolol 3. Aortic valve disease ?With history of Mookie Godinez bovine pericardial valve replacement in 2013 4. Diabetes mellitus type II -patient's oral hypoglycemics held. Placed on long acting insulin, Accu-Cheks a.c. and at bedtime and covered with sliding scale insulin 5. Hypomagnesemia ?Corrected per protocol 6. Hypertension - Blood pressure controlled, home medications continued with dose adjustment as needed 7. BPH ?On tamsulosin DVT: Lovenox Charges/Coding Visit Charges Inpatient E&M: 79727 Subs Hosp L2
[2020-12-17] MEDS: Furosemide 40 MG/4 ML Vial IV (13:06)
[2020-12-17 19:47] LABS: Bedside Glucose 447 mg/dL (70-110)
[2020-12-17] MEDS: traZODone 50 MG Tablet PO (21:23)
[2020-12-17] MEDS: Tamsulosin HCl 0.4 MG Capsule PO (21:24)
[2020-12-17 22:40] LABS: Bedside Glucose 358 mg/dL (70-110)
[2020-12-18] VITALS (13 sets, daily range): BP systolic 113–134; BP diastolic 67–90; PULSE 68–93; RESP 18–22; TEMP 36.6–36.8; O2SAT 92–97
[2020-12-18 05:55] LABS: Anion Gap 9 (5-15); BUN 37 mg/dL (7-18); BUN/Creat Ratio 35.2 RATIO (10-20); Calcium,Total 9.2 mg/dL (8.5-10.1); Chloride 99 mmol/L (98-107); Creatinine, Serum 1.05 mg/dL (0.70-1.30); EST Glomerular Filtration Rate 74 mL/min (>60); Est Glom Filt Rate - Afr Amer 89 mL/min (>60); Estimated Creatinine Clearance 72.85 ml/min; Glucose 259 mg/dL (74-106); Potassium 4.3 mmol/L (3.5-5.1); Sodium Level 133 mmol/L (136-145)
[2020-12-18] MEDS: Sodium Chloride 0.65% 1 SPRAY SPRAY.BTL NASAL (06:17)
[2020-12-18] MEDS: Insulin Lispro 100 UNIT/ML INSULN.PEN 10 UNIT SC ×3 (07:30→16:14)
[2020-12-18] MEDS: Benzonatate 100 MG Capsule PO (07:30)
[2020-12-18] MEDS: Insulin Lispro 100 UNIT/ML INSULN.PEN SC ×4 (07:30→21:59)
[2020-12-18 08:11] LABS: Bedside Glucose 214 mg/dL (70-110)
[2020-12-18] MEDS: Enoxaparin 120 MG/0.8 ML Syringe 110 MG SC ×2 (09:31→21:58)
[2020-12-18] MEDS: guaiFENesin 600 MG Tablet PO ×2 (09:32→21:59)
[2020-12-18] MEDS: Aspirin 81 MG TAB.CHEW 162 MG PO (09:32)
[2020-12-18] MEDS: Metoprolol(XL)Succ 25 MG Tablet 75 MG PO (09:32)
--- NOTE | 2020-12-18 12:45 | PCM.PN.HOSP ---
Subjective Subjective Doing well, maintaining his oxygen sats on 5 L nasal cannula. Objective Data Objective Data Vital Signs: Vital Signs Temp Pulse Resp BP Pulse Ox 97.8 F 93 20 H 126/67 H 95 12/18/20 09:26 12/18/20 10:34 12/18/20 09:26 12/18/20 09:26 12/18/20 09:26 Oxygen Flow Rate (L/min) 5 Oxygen Delivery Method Nasal Cannula Weight: 227 lb 1.218 oz Body Mass Index (BMI) 30.5 Intake & Output: Intake and Output for Last 24 Hours 12/17/20 12/18/20 12/19/20 03:59 03:59 03:59 Intake Total 1400 / 1400 1040 / 1040 660 / 660 Output Total 2100 / 2100 2200 / 2200 800 / 800 Balance -700 / -700 -1160 / -1160 -140 / -140 Lab / Micro Data Result Diagrams: 12/17/20 05:24 12/18/20 04:32 Labs: Laboratory Results - last 24 hr 12/17/20 16:19: POC Glucose 447 H 12/17/20 21:28: POC Glucose 358 H 12/18/20 04:32: Sodium 133 L, Potassium 4.3, Chloride 99, Carbon Dioxide 25.0, Anion Gap 9, BUN 37 H, Creatinine 1.05, Estim Creat Clear Calc 72.85, Est GFR (MDRD) Af Amer 89, Est GFR (MDRD) Non-Af 74, BUN/Creatinine Ratio 35.2 H, Glucose 259 H, Calcium 9.2 12/18/20 07:26: POC Glucose 214 H Micro: Microbiology 12/07/20 21:35 Blood Culture (Wb) - Right Hand Blood Culture - Final No growth in 5 days. 12/07/20 21:35 Blood Culture (Wb) - Anticubital Left Blood Culture - Final No growth in 5 days. 12/12/20 20:45 Urine, Clean Catch Legionella Antigen - Final 12/12/20 20:45 Urine, Clean Catch Streptococcus pneumoniae Antigen (M - Final 12/12/20 10:45 Mucosa - Nasopharyngeal Respiratory Panel (PCR) - Final 12/07/20 21:42 Nasal Secretion SARS-CoV-2 Antigen (Rapid) - Final SARS-CoV-2 (COVID 19) Physical Exam Const alert, oriented x3 and no apparent distress General Appearance: cooperative HEENT normocephalic and moist oral mucous membranes Eyes PERRL, EOMs intact bilaterally and conjunctivae normal Neck supple and no JVD Resp normal respiratory effort, no retractions and no use of accessory muscles Auscultation: diminished lung sounds; Negative for crackles, rales, rhonchi or wheezes Cardio regular rate, regular rhythm, S1 normal heart sound, S2 normal heart sound and no murmurs GI soft to palpation, non-tender and non-distended; Negative for hepatosplenomegaly Extremity no clubbing, cyanosis or edema Skin no rashes or lesions noted Neuro no focal motor deficits and no sensory deficits noted Psych affect normal Appearance: appropriate Assessment & Plan Assessment/Plan (1) Acute hypoxemic respiratory failure: (2) Obesity (BMI 30-39.9): (3) Atrial fibrillation with rapid ventricular response: (4) COVID-19: PLAN: . 1. Acute hypoxic respiratory failure ?Secondary to SARS-CoV-2 pneumonia. Currently being managed with Decadron as well as noninvasive ventilation via BiPAP. Patient was deemed not a candidate for baricitinib as well as remdesivir -12/13/2020;Patient seen remains in ICU on high flow oxygen. Has been alternating between BiPAP at night as well as Vapotherm during the day - 12/14/2020; Patient up in a chair still on Airvo. Per nursing staff patient desaturated easily with activity \ 12/15/2020: Continue with IV Decadron. Maintaining respiratory status on air Vo may need to encourage BiPAP use at night as well if we struggle to get him off high flow oxygen. If creatinine is stable in the morning will consider dose of Lasix 12/16/2020: Creatinine is improved today so we will trial him on the dose of Lasix and see if that helps maintain his oxygen status. May need to be on BiPAP overnight to help with recruitment. There was a slight increase in his white count this is likely related to the Decadron, he remains afebrile. -12/17/2020: We will repeat dosing of Lasix, continues off air Vo. He has completed Decadron so we will closely monitor his blood sugars and make adjustments to his insulin as necessary -12/18/2020: Doing well, maintaining oxygen saturations on 5 L nasal cannula. We will continue to monitor. 2. A. fib with RVR ?This was present on admission heart rate subsequently well controlled. Currently on metoprolol 3. Aortic valve disease ?With history of Mookie Godinez bovine pericardial valve replacement in 2013 4. Diabetes mellitus type II -patient's oral hypoglycemics held. Placed on long acting insulin, Accu-Cheks a.c. and at bedtime and covered with sliding scale insulin 5. Hypomagnesemia ?Corrected per protocol 6. Hypertension - Blood pressure controlled, home medications continued with dose adjustment as needed 7. BPH ?On tamsulosin DVT: Lovenox Charges/Coding Visit Charges Inpatient E&M: 56237 Subs Hosp L2
[2020-12-18 13:26] LABS: Bedside Glucose 357 mg/dL (70-110)
[2020-12-18 16:51] LABS: Bedside Glucose 357 mg/dL (70-110)
[2020-12-18] MEDS: Tamsulosin HCl 0.4 MG Capsule PO (21:58)
[2020-12-18] MEDS: traZODone 50 MG Tablet PO (22:00)
[2020-12-18 22:46] LABS: Bedside Glucose 280 mg/dL (70-110)
[2020-12-19] VITALS (20 sets, daily range): BP systolic 100–155; BP diastolic 57–118; PULSE 72–117; RESP 16–24; TEMP 36.4–37; O2SAT 91–97
[2020-12-19 06:38] LABS: Anion Gap 9 (5-15); BUN 36 mg/dL (7-18); Calcium,Total 9.3 mg/dL (8.5-10.1); Chloride 100 mmol/L (98-107); Creatinine, Serum 0.92 mg/dL (0.70-1.30); EST Glomerular Filtration Rate 85 mL/min (>60); Est Glom Filt Rate - Afr Amer 103 mL/min (>60); Estimated Creatinine Clearance 83.14 ml/min; Glucose 138 mg/dL (74-106); Potassium 4.2 mmol/L (3.5-5.1); Sodium Level 134 mmol/L (136-145)
[2020-12-19] MEDS: Insulin Lispro 100 UNIT/ML INSULN.PEN SC ×4 (07:57→21:00)
[2020-12-19] MEDS: Insulin Lispro 100 UNIT/ML INSULN.PEN 10 UNIT SC ×3 (07:57→16:22)
[2020-12-19 08:05] LABS: Bedside Glucose 161 mg/dL (70-110)
[2020-12-19] MEDS: Benzonatate 100 MG Capsule PO (08:17)
[2020-12-19] MEDS: 0.9% Saline Lock 10 ML Syringe IV (08:17)
[2020-12-19] MEDS: Furosemide 40 MG/4 ML Vial IV (08:17)
[2020-12-19] MEDS: guaiFENesin 600 MG Tablet PO ×2 (09:11→21:02)
[2020-12-19] MEDS: Aspirin 81 MG TAB.CHEW 162 MG PO (09:11)
[2020-12-19] MEDS: Enoxaparin 120 MG/0.8 ML Syringe 110 MG SC ×2 (09:11→21:01)
[2020-12-19] MEDS: Metoprolol(XL)Succ 25 MG Tablet 75 MG PO (09:11)
--- NOTE | 2020-12-19 09:36 | PCM.PN.HOSP ---
Subjective Subjective Had to have an increase in his oxygen overnight when sleeping but he has been aggressively wean this morning is already down to 7. He does have crackles on exam we will give him a dose of Lasix as well. Objective Data Objective Data Vital Signs: Vital Signs Temp Pulse Resp BP Pulse Ox 98.6 F 82 23 H 121/79 H 94 12/19/20 09:00 12/19/20 09:11 12/19/20 09:00 12/19/20 09:00 12/19/20 09:00 Oxygen Flow Rate (L/min) 7 Oxygen Delivery Method Nasal Cannula Weight: 227 lb 1.218 oz Body Mass Index (BMI) 30.5 Intake & Output: Intake and Output for Last 24 Hours 12/18/20 12/19/20 12/20/20 03:59 03:59 03:59 Intake Total 1040 / 1040 1160 / 1160 100 / 100 Output Total 2200 / 2200 1575 / 1575 75 / 75 Balance -1160 / -1160 -415 / -415 Lab / Micro Data Result Diagrams: 12/17/20 05:24 12/19/20 05:30 Labs: Laboratory Results - last 24 hr 12/18/20 11:02: POC Glucose 357 H 12/18/20 16:12: POC Glucose 357 H 12/18/20 21:57: POC Glucose 280 H 12/19/20 05:30: Sodium 134 L, Potassium 4.2, Chloride 100, Carbon Dioxide 25.0, Anion Gap 9, BUN 36 H, Creatinine 0.92, Estim Creat Clear Calc 83.14, Est GFR (MDRD) Af Amer 103, Est GFR (MDRD) Non-Af 85, BUN/Creatinine Ratio 39.0 H, Glucose 138 H, Calcium 9.3 12/19/20 07:49: POC Glucose 161 H Micro: Microbiology 12/07/20 21:35 Blood Culture (Wb) - Right Hand Blood Culture - Final No growth in 5 days. 12/07/20 21:35 Blood Culture (Wb) - Anticubital Left Blood Culture - Final No growth in 5 days. 12/12/20 20:45 Urine, Clean Catch Legionella Antigen - Final 12/12/20 20:45 Urine, Clean Catch Streptococcus pneumoniae Antigen (M - Final 12/12/20 10:45 Mucosa - Nasopharyngeal Respiratory Panel (PCR) - Final 12/07/20 21:42 Nasal Secretion SARS-CoV-2 Antigen (Rapid) - Final SARS-CoV-2 (COVID 19) Physical Exam Const alert, oriented x3 and no apparent distress General Appearance: cooperative HEENT normocephalic and moist oral mucous membranes Eyes PERRL, EOMs intact bilaterally and conjunctivae normal Neck supple and no JVD Resp normal respiratory effort, no retractions and no use of accessory muscles Auscultation: crackles and diminished lung sounds; Negative for rales, rhonchi or wheezes Cardio regular rate, regular rhythm, S1 normal heart sound, S2 normal heart sound and no murmurs GI soft to palpation, non-tender and non-distended; Negative for hepatosplenomegaly Extremity no clubbing, cyanosis or edema Skin no rashes or lesions noted Neuro no focal motor deficits and no sensory deficits noted Psych affect normal Appearance: appropriate Assessment & Plan Assessment/Plan (1) Acute hypoxemic respiratory failure: (2) Obesity (BMI 30-39.9): (3) Atrial fibrillation with rapid ventricular response: (4) COVID-19: PLAN: . 1. Acute hypoxic respiratory failure ?Secondary to SARS-CoV-2 pneumonia. Currently being managed with Decadron as well as noninvasive ventilation via BiPAP. Patient was deemed not a candidate for baricitinib as well as remdesivir -12/13/2020;Patient seen remains in ICU on high flow oxygen. Has been alternating between BiPAP at night as well as Vapotherm during the day - 12/14/2020; Patient up in a chair still on Airvo. Per nursing staff patient desaturated easily with activity \ 12/15/2020: Continue with IV Decadron. Maintaining respiratory status on air Vo may need to encourage BiPAP use at night as well if we struggle to get him off high flow oxygen. If creatinine is stable in the morning will consider dose of Lasix 12/16/2020: Creatinine is improved today so we will trial him on the dose of Lasix and see if that helps maintain his oxygen status. May need to be on BiPAP overnight to help with recruitment. There was a slight increase in his white count this is likely related to the Decadron, he remains afebrile. -12/17/2020: We will repeat dosing of Lasix, continues off air Vo. He has completed Decadron so we will closely monitor his blood sugars and make adjustments to his insulin as necessary -12/18/2020: Doing well, maintaining oxygen saturations on 5 L nasal cannula. We will continue to monitor. -12/19/2020: Continues to have some crackles today therefore we will do some Lasix. We will actively wean his oxygen 2. A. fib with RVR ?This was present on admission heart rate subsequently well controlled. Currently on metoprolol 3. Aortic valve disease ?With history of Mookie Godinez bovine pericardial valve replacement in 2013 4. Diabetes mellitus type II -patient's oral hypoglycemics held. Placed on long acting insulin, Accu-Cheks a.c. and at bedtime and covered with sliding scale insulin 5. Hypomagnesemia ?Corrected per protocol 6. Hypertension - Blood pressure controlled, home medications continued with dose adjustment as needed 7. BPH ?On tamsulosin DVT: Lovenox Charges/Coding Visit Charges Inpatient E&M: 07150 Subs Hosp L2
[2020-12-19 11:30] LABS: Bedside Glucose 250 mg/dL (70-110)
--- NOTE | 2020-12-19 15:44 | NURSING ---
This RN reviewed all SN charting
[2020-12-19 16:51] LABS: Bedside Glucose 280 mg/dL (70-110)
[2020-12-19 19:54] LABS: Magnesium 2.2 mg/dL (1.6-2.6)
[2020-12-19] MEDS: Tamsulosin HCl 0.4 MG Capsule PO (21:02)
[2020-12-19 22:26] LABS: Bedside Glucose 206 mg/dL (70-110)
[2020-12-20] VITALS (46 sets, daily range): BP systolic 45–134; BP diastolic 28–93; PULSE 54–178; RESP 12–46; TEMP 35.6–36.6; O2SAT 81–100
[2020-12-20 07:31] LABS: Absolute Lymphocyte Count 1.28 X10^3/uL (0.83-4.51); Absolute Neutrophil Count 15.6 X10^3/uL (2.0-7.7); Basophil# 0.05 X10^3/uL; Basophil% 0.3 % (0-1); Eosinophil# 0.12 X10^3/uL; Eosinophils% 0.7 % (0-5); Hemoglobin 14.8 g/dL (13.0-16.5); Lymphocyte # 1.28 X10^3/ul (0.83-4.51); Lymphocyte % 7.2 % (19-41); Mean Corp Hgb Conc 34.4 g/dL (32-36); Mean Corpuscular Hgb 30.8 pg (27.0-32.0); Mean Corpuscular Volume 89.6 fL (80-94); Mean Platelet Vol. 12.2 fl (6.2-12.0); Monocyte# 0.63 X10^3/uL; Monocyte% 3.5 % (0-10); NRBC Flagged by Analyzer 0 % (0-5); Neutrophil # 15.61 X10^3/uL (2.7-7.7); Neutrophil % 87.8 % (47-70); Platelet Count 189 K/mm3 (150-450); RBC Distribution Width CV 13.6 % (11.6-14.6); RBC Distribution Width SD 43.8 fl (35.1-43.9); White Blood Count 17.8 K/mm3 (4.4-11.0)
[2020-12-20 07:51] LABS: Anion Gap 12 (5-15); BUN 43 mg/dL (7-18); BUN/Creat Ratio 44.1 RATIO (10-20); Calcium,Total 9.4 mg/dL (8.5-10.1); Chloride 97 mmol/L (98-107); Creatinine, Serum 0.98 mg/dL (0.70-1.30); EST Glomerular Filtration Rate 80 mL/min (>60); Est Glom Filt Rate - Afr Amer 97 mL/min (>60); Estimated Creatinine Clearance 78.05 ml/min; Glucose 132 mg/dL (74-106); Potassium 4.3 mmol/L (3.5-5.1); Sodium Level 133 mmol/L (136-145)
[2020-12-20] MEDS: Insulin Lispro 100 UNIT/ML INSULN.PEN SC ×2 (09:45→12:30)
[2020-12-20] MEDS: Insulin Lispro 100 UNIT/ML INSULN.PEN 10 UNIT SC (09:46)
[2020-12-20] MEDS: Enoxaparin 120 MG/0.8 ML Syringe 110 MG SC (09:47)
[2020-12-20] MEDS: Aspirin 81 MG TAB.CHEW 162 MG PO (09:47)
[2020-12-20] MEDS: guaiFENesin 600 MG Tablet PO (09:48)
[2020-12-20] MEDS: Metoprolol(XL)Succ 25 MG Tablet 75 MG PO (09:48)
[2020-12-20 10:06] LABS: Bedside Glucose 220 mg/dL (70-110)
--- NOTE | 2020-12-20 10:46 | NURSING ---
charge hand texting dr regarding o2 demands going up and hr sustained >140's. pt afib rvr. warm blanket applied to pulse ox hand. pt 89% and cps just in and fio2 up to 100% now on bipap. legs mottled and cold. made aware
--- NOTE | 2020-12-20 10:51 | RAD_ITS ---
STUDY: X-RAY CHEST REASON FOR EXAM: Male, 75 years old. SOB TECHNIQUE: Single AP portable view of the chest. COMPARISON: Comparison is made with prior study 12/12/2020. FINDINGS: EKG electrodes are seen. Progressive bibasilar pulmonary infiltrates worse at the left lung base. There is blunting of both costophrenic angles. Sternal cerclage wires and vascular clips are present from a prior sternotomy and coronary artery bypass graft procedure (CABG). Normal mediastinum and salazar. Normal visualized pulmonary arteries. Normal visualized aortic arch and descending thoracic aorta. Normal visualized thoracic spine. Normal visualized ribs, clavicles, and shoulders. There is no demonstrated abnormality of the visualized soft tissue structures of the upper abdomen. RAD/Chest 1 View (Portable) IMPRESSION: Progressive bibasilar patchy infiltrates worse on the left side. Electronically Signed: Tyler Mitchell MD at 11:50 EDT , Service support ,
[2020-12-20] MEDS: dilTIAZem 25 MG/5 ML Vial 20 MG IV BOLUS (11:04)
[2020-12-20] MEDS: 0.9% Saline Lock 10 ML Syringe IV ×2 (11:04→11:39)
--- NOTE | 2020-12-20 11:11 | EKG12_ITS ---
Test Reason : Blood Pressure : / mmHG Vent. Rate : 160 BPM Atrial Rate : 160 BPM P-R Int : 084 ms QRS Dur : 078 ms QT Int : 284 ms P-R-T Axes : 033 044 018 degrees QTc Int : 463 ms Poor data quality, interpretation may be adversely affected Sinus tachycardia Nonspecific ST depression Abnormal ECG Confirmed by CESAR RAMIREZ, RENATO ([id number]), scientific publications editor MAX DISLA ([id number]) on 12/22/2020 9:36:50 AM Referred By: EDMUND Confirmed By:RENATO GUERRERO MD
--- NOTE | 2020-12-20 11:12 | NURSING ---
mandie su in and pushing iv cardizem. dr. nelson in room and at monitors. cps in doing abgs. ekg ordered for rhythm check
[2020-12-20 11:31] LABS: Allen Test Positive; Base Excess -4 mmol/L (-2 to +2); Bicarbonate 19.8 mmol/L (22-26); Blood Gas Specimen Type ART; FI02 100; O2 Delivery Device BiPAP; PO2 45 mmHG (75-100); SITE R Radial; SO2 83 % (95-99); Total Carbon Dioxide 21 mmol/L; pH 7.44 (7.35-7.45)
[2020-12-20 11:31] LABS: Bedside Glucose 234 mg/dL (70-110)
--- NOTE | 2020-12-20 12:50 | NURSING ---
Nursing note to detail cardioversion in room: 1245 - procedure explained to patient and , verbal consent obtained 1248 - Dr. Minor and Dr. Weldon in room, crash cart in room and pads placed on patient; outside the room waiting with TALON Grigsby 1250 - patient reports to weak to move to bed, plan to proceed with cardioversion in the chair, Dr. Minor and Dr. Weldon ok with this plan 1255 - etomidate 4 mg SIVP with flush given per Dr. Minor 1256 - patient cardioverted @ [address] Weldon, no change in rhythm noted 1257 - patient cardioverted @ [address] Weldon, no change in rhythm noted 1300 - patient moved to bed from the chair with assist x6, plan to transfer to ICU 1305 - report called to TALON Bowens in ICU 1315 - patient moved to CVICU 3 via bed, with patient
[2020-12-20] MEDS: Etomidate 20 MG/10 ML Vial IV (12:55)
[2020-12-20] MEDS: Lactated Ringers 500 ML 999 ML IV (13:49)
--- NOTE | 2020-12-20 13:54 | EKG12_ITS ---
Test Reason : ARRTHYMIA Blood Pressure : / mmHG Vent. Rate : 093 BPM Atrial Rate : 093 BPM P-R Int : 152 ms QRS Dur : 092 ms QT Int : 378 ms P-R-T Axes : 000 023 026 degrees QTc Int : 469 ms Sinus rhythm with marked sinus arrhythmia with PSVC's Confirmed by CESAR RAMIREZ, RENATO ([id number]), international editorial producer MAX [employer]LA ([id number]) on 12/22/2020 9:36:01 AM Referred By: Jessica GUERRERO Confirmed By:RENATO GUERRERO MD
--- NOTE | 2020-12-20 13:57 | RAD_ITS ---
STUDY: X-RAY CHEST REASON FOR EXAM: Male, 75 years old. Hypotension/tachycardia TECHNIQUE: Single AP portable view of the chest. COMPARISON: Comparison is made with prior study dated 12/20/2020 10:52 AM. FINDINGS: EKG electrodes are seen. Stable bibasilar pulmonary infiltrates worse at the left lung base. There is no demonstrated pleural abnormality. Sternal cerclage wires and vascular clips are present from a prior sternotomy and coronary artery bypass graft procedure (CABG). Normal mediastinum and salazar. Normal visualized pulmonary arteries. There is atherosclerotic calcification of the aortic arch with tortuosity. Normal visualized thoracic spine. Normal visualized ribs, clavicles, and shoulders. Gaseous distention of the stomach. RAD/Chest 1 View (Portable) IMPRESSION: Stable examination with evidence of bibasilar pulmonary infiltrates worse at the left lung base. Electronically Signed: Tyler Mitchell MD at 14:25 EDT , Service support ,
--- NOTE | 2020-12-20 13:58 | ECHOL_ITS ---
Reason For Study: HYPOTENSION Procedure This was a limited 2D transthoracic echocardiogram. The study was technically difficult. Due to body habitus and heartrate. Exam performed portable in ICU/CCU. Left Ventricle Based upon the 2D echocardiographic images obtained there appears to be grossly normal left ventricular size, wall motion, and systolic function. The estimated ejection fraction is 55 %. Unable to assess diastolic dysfunction. Right Ventricle Based upon the 2D echocardiographic images obtained there appears to be grossly normal right ventricular size, wall motion, and systolic function. Atria Normal left atrium. The right atrium is not well visualized. Mitral Valve There is mild mitral annular calcification. Normal mitral valve. Tricuspid Valve Normal tricuspid valve. Aortic Valve The aortic valve is not well visualized, however, based upon the echocardiographic images obtained there appears to be a stable appearing bioprosthetic aortic valve apparatus. Pulmonic Valve The pulmonic valve is not well visualized. Pericardium/Pleural No pericardial effusion. MMode/2D Measurements & Calculations LVIDd: 4.5 cm IVSd: 1.1 cm LA dimension: 3.2 cm LVIDs: 3.0 cm LVPWd: 1.1 cm FS: 31.9 % ECHO/Echo, Limited Study Interpretation Summary The study was technically difficult. Based upon the 2D echocardiographic images obtained there appears to be grossly normal left ventricular size, wall motion, and systolic function. The estimated ejection fraction is 55 %. There is mild mitral annular calcification. The aortic valve is not well visualized, however, based upon the echocardiograp hic images obtained there appears to be a stable appearing bioprosthetic aortic valve apparatus. Unable to assess diastolic dysfunction. Ordering Physician: Balbir Miranda Referring Physician: Guanako Brownlee Performed By: Mimi Naik, RDCS, RVT
--- NOTE | 2020-12-20 14:05 | PCM.CONS.C ---
Assessment & Plan Assessment/Plan (1) SVT (supraventricular tachycardia): PLAN: The patient appeared to demonstrate an underlying narrow complex tachycardia. Based upon review the cardiac rhythm strips/ECGs available it appeared this was compatible with an underlying sinus mechanism and/or an SVT as opposed to an underlying atrial dysrhythmia such as atrial fibrillation/flutter. The etiology may be secondary to his underlying cardiovascular history of an SVT as well as noncardiovascular conditions would include his underlying pulmonary process. Thus far there does not appear to be evidence of an acute coronary syndrome, acute LV systolic dysfunction, acute valvular dysfunction, or the development of obvious pericardial effusion to explain his events/findings. He was treated with rate control therapy. However he did not appear to have any significant improvement in his underlying rate or rhythm. He received synchronized biphasic DC cardioversion as noted above again without any significant improvement in his underlying rate or rhythm. This result may be as he appeared to be in an underlying sinus mechanism versus having been in an underlying atrial dysrhythmia. After he received IV amiodarone his cardiac rate slowed which also demonstrated underlying sinus rhythm with premature ectopic complexes. At the present time he is continuing IV amiodarone therapy. (2) Hypotension: PLAN: He has been noted to be hypotensive. The etiology may be multifactorial. There may be a component related to his medications used to treat his tachydysrhythmia as well as his tachydysrhythmia. However at the same time other etiologies-noncardiac etiologies, have to be considered as well. He was treated with IV fluids with no significant improvement in his blood pressure. He required IV epinephrine and subsequent IV vasopressor support which appeared to assist in bringing his blood pressure up. (3) H/O aortic valve replacement: PLAN: He has a history of a remote aortic valve replacement-bioprosthetic. His previous echocardiographic studies have not demonstrated any obvious concerns regarding his bioprosthetic aortic valve. His quick look bedside echocardiographic study performed during this evaluation did not appear to demonstrate any obvious hemodynamically significant valvular heart related issues. He does need to continue AHA antibiotic prophylaxis as deemed appropriate. (4) COVID-19: PLAN: He does have COVID-19. He was reported as demonstrating an element of improvement. However this day his respiratory status has declined. There is concerned that this could be a trigger mechanism for his cardiac dysrhythmia. (5) Acute hypoxemic respiratory failure: PLAN: His respiratory status has declined. He is required BiPAP therapy. He has previously requested to be a DO NOT INTUBATE patient. (6) Hyperlipidemia: QUALIFIERS: Hyperlipidemia type: other hyperlipidemia Qualified Code(s): E78.49 - Other hyperlipidemia; E78.4 - Other hyperlipidemia PLAN: He has a history of hyperlipidemia. He will continue medical management as deemed appropriate. (7) Type 2 diabetes mellitus: PLAN: He has a history of diabetes mellitus. He will continue evaluation care per internal medicine. Addt'l Comments Overall, at the present time, he remains in the ICU. He remains with BiPAP support. He remains with cardiac rhythm support with IV amiodarone and blood pressure support with IV vasopressor agents. He has had additional laboratory studies. His potassium and magnesium appear to be stable. His creatinine is increased which may be secondary to his hypotension. He remains in an underlying sinus mechanism with frequent premature ectopic beats. His ECG has not demonstrated any new acute ECG changes. He has undergone further evaluation with both radiologic studies and echocardiographic studies. He will continue in the ICU with supportive medical therapy and further evaluation and care as deemed appropriate. The patient's case has been discussed and evaluated with Dr. Steven and Dr. Minor. The patient's case has been discussed with the patient's spouse. This note was generated using a voice recognition system and there may be incorrect words, spelling or punctuation that were not noted when reviewing the office note prior to saving. Comment: Critical care time spent in patient's evaluation and care: 90 minutes HPI Consult Data Date of Consult: 12/20/20 HPI Narrative Reason for Consultation: SVT & Hypotension HPI Narrative: IDRIS DUDLEY, is a 75-year-old white man who presents for cardiovascular consultation based upon concerns of a supraventricular tachycardia and hypotension superimposed upon a history of underlying AVR (bioprosthetic). The patient has been hospitalized at [facility] for concerns of COVID-19. He has been undergoing evaluation and care by internal medicine and pulmonology/critical care medicine. He was reported today to have concerns of an underlying SVT which was thought related to an atrial fibrillation/flutter. He was treated with IV diltiazem bolus and IV diltiazem infusion. He was noted to become hypotensive. Thus he underwent synchronized biphasic DC cardioversion by internal medicine and pulmonology/critical care medicine staff. He was reported as still remaining in an underlying SVT/atrial dysrhythmia. He was then started on additional medical therapy with IV amiodarone bolus/infusion. He was placed in the ICU for further evaluation and care. Cardiology was consulted to assist in the care of the patient. It appears the patient has a history of an underlying SVT based upon his outpatient cardiovascular records in addition to his history of a bioprosthetic aortic valve. There has been no report of angiographically appearing significant CAD that has previously required revascularization therapy. He has undergone noninvasive evaluation during this hospitalization with cardiac enzymes which have been negative. He has had echocardiographic studies performed which is demonstrated overall preserved LV systolic function and a stable appearing bioprosthetic aortic valve. According to the [facility] medical records he was thought earlier in his hospitalization to have evidence of atrial fibrillation. However based upon review of his cardiac rhythm strips and ECGs, and in comparison to previous ECGs from 2018 and 2019, there are similar type findings suggesting that he has been in a sinus mechanism with frequent PACs. During the events of this day his pulmonary status appeared to decline with decreasing O2 saturations. He required BiPAP therapy. Based upon his DNR status he was considered to be not a candidate for intubation. During his evaluation in the ICU his cardiac rhythm was noted to be an underlying sinus rhythm with PACs. His cardiac rate did subsequently decrease. During this time he remained hypotensive. He was treated with IV fluids and subsequently required IV epinephrine bolus and initiation of an IV vasopressor infusion. A stat portable chest x-ray was obtained. On preliminary evaluation he was noted to have diminished inspiratory effort as well as the appearance of bibasilar infiltrates. His chest x-ray appeared to be similar to a chest x-ray performed earlier this day. The official report is as noted below. A stat portable echocardiogram was obtained. This was a technically diminished quality study. Based upon the bedside review of the echocardiographic images there appeared to be overall preserved left ventricular systolic function and no obvious hemodynamically significant valvular heart disease and no obvious pericardial effusion. [facility] Medical History (Updated 12/20/20 @ 14:[address] Balbir Miranda MD) Atrial fibrillation Essential (primary) hypertension Hyperlipidemia Hypotension Obesity Rheumatic aortic stenosis SVT (supraventricular tachycardia) Type 2 diabetes mellitus Home Medications aspirin 81 mg chewable tablet 162 mg PO .COMPLEX 02/05/17 [History Last Taken Unknown] glipizide 2.5 mg tablet, extended release 24 hr 2.5 mg PO DAILY #90 tab 05/18/20 [Rx Last Taken Unknown] losartan 100 mg tablet 100 mg PO DAILY #90 tab 07/13/20 [Rx Last Taken Unknown] tamsulosin 0.4 mg capsule 0.4 mg PO QHS #90 cap 07/13/20 [Rx Last Taken Unknown] hydroxychloroquine 200 mg PO BID 12/07/20 [History Last Taken Unknown] metformin 1,500 mg PO 12/07/20 [History Last Taken Unknown] metoprolol succinate [Toprol XL] 5 mg PO BID 12/07/20 [History Last Taken Unknown] Allergy/AdvReac Type Severity Reaction Status Date / Time lisinopril AdvReac cough Verified 12/07/20 21:35 Family History Sister Heart disease Mother Cancer Surgical History H/O aortic valve replacement (08/2013) History of cholecystectomy History of left heart catheterization (08/17/13) History of radiofrequency ablation procedure for cardiac arrhythmia (04/29/03) Social History (Updated 12/08/20 @ 02:54 by Shine Diaz) adopted: No household members: spouse housing: house number of children: 10 financial difficulty paying for basics: not very hard service: No current occupational status: retired current occupational exposures/hazards: No pets and animals: No Smoking Status: Never smoker alcohol intake: never substance use type: does not use what type of physical activity do you participate in: none ROS Review of Systems ROS Unobtainable: other Details: Diminished mentation at this time Physical Exam Narrative This is a 75-year-old white male who appears to be lethargic at this time. HEENT normocephalic and head/scalp atraumatic Eyes PERRL Neck supple and no JVD Chest Chest: midline sternotomy incision Resp Auscultation: diminished lung sounds bilateral lower Cardio regular rhythm, S1 normal heart sound and S2 normal heart sound Cardio Narrative: Cardiac rhythm: Ectopic beats GI normal to inspection, nondistended, normoactive bowel sounds Extremity Extremity Narrative: Lower extremities: Mottled appearing Risk Stratification Risk Stratification Applicable: Yes Age >/= 65: Yes >/= 3 CAD Risk Factors (HTN, HLD, DM, family hx of CAD, or current smoker): Yes Aspirin Use in the Past 7 Days: Yes Severe Angina (>/= episodes in 24 hours): No EKG ST Changes >/= 0.5mm: No Positive Cardiac Marker: No LAURA Risk Stratification Score: 3 LAURA % Risk: 13% Risk Objective Data Vital Signs: Vital Signs Temp Pulse Resp BP Pulse Ox 96.0 F L 132 H 36 H 61/48 L 92 12/20/20 10:00 12/20/20 13:34 12/20/20 13:34 12/20/20 13:34 12/20/20 13:34 Oxygen Flow Rate (L/min) 6 Oxygen Delivery Method Bi-pap Weight: 227 lb 1.218 oz Body Mass Index (BMI) 30.5 Intake & Output: Intake and Output for Last 24 Hours 12/18/20 12/19/20 12/20/20 23:59 23:59 23:59 Intake Total 1300 / 1400 900 / 1100 423 / 423 Output Total 1750 / 2125 1550 / 1700 400 / 400 Balance -450 / -725 -650 / -600 Lab / Micro Data Result Diagrams: 12/20/20 06:00 12/20/20 13:45 Labs: Laboratory Results - last 24 hr 12/19/20 05:30: Magnesium 2.2 12/19/20 16:20: POC Glucose 280 H 12/19/20 20:57: POC Glucose 206 H 12/20/20 06:00: WBC 17.8 H, RBC 4.80, Hgb 14.8, Hct 43.0, MCV 89.6, MCH 30.8, MCHC 34.4, RDW Std Deviation 43.8, RDW Coeff of Anabella 13.6, Plt Count 189, MPV 12.2 H, Immature Gran % (Auto) 0.500, Neut % (Auto) 87.8 H, Lymph % (Auto) 7.2 L, [place] % (Auto) 3.5, Eos % (Auto) 0.7, Baso % (Auto) 0.3, Absolute Neuts (auto) 15.6 H, Absolute Lymphs (auto) 1.28, Nucleated RBC % 0 12/20/20 06:00: Sodium 133 L, Potassium 4.3, Chloride 97 L, Carbon Dioxide 24.0, Anion Gap 12, BUN 43 H, Creatinine 0.98, Estim Creat Clear Calc 78.05, Est GFR (MDRD) Af Amer 97, Est GFR (MDRD) Non-Af 80, BUN/Creatinine Ratio 44.1 H, Glucose 132 H, Calcium 9.4 12/20/20 09:40: POC Glucose 220 H 12/20/20 11:22: POC Glucose 234 H ABG Data ABG results: ABG 12/20/20 11:24 Specimen Type ART Sample Site R Radial pH 7.44 Bicarbonate Actual 19.8 L Total CO2 21 Base Excess -4 L O2 Saturation 83 L O2 % 100 ABG pCO2 29.0 L ABG pO2 45 L Lele Test Positive O2 Delivery Device BiPAP Cardiology Labs/Tests 12/19/20 05:30: Magnesium 2.2 12/20/20 06:00: WBC 17.8 H, RBC 4.80, Hgb 14.8, Hct 43.0, MCV 89.6, MCH 30.8, MCHC 34.4, Plt Count 189, MPV 12.2 H, Immature Gran % (Auto) 0.500, Neut % (Auto) 87.8 H, Lymph % (Auto) 7.2 L, [place] % (Auto) 3.5, Eos % (Auto) 0.7, Baso % (Auto) 0.3, Absolute Neuts (auto) 15.6 H, Nucleated RBC % 0 12/20/20 06:00: Sodium 133 L, Potassium 4.3, Chloride 97 L, Carbon Dioxide 24.0, Anion Gap 12, BUN 43 H, Creatinine 0.98, Est GFR (MDRD) Af Amer 97, Est GFR (MDRD) Non-Af 80, BUN/Creatinine Ratio 44.1 H, Glucose 132 H, Calcium 9.4 12/20/20 11:24: pH 7.44, Bicarbonate Actual 19.8 L, Base Excess -4 L, O2 Saturation 83 L, ABG pCO2 29.0 L, ABG pO2 45 L, Lele Test Positive Rhythm: As noted above; 1 episode of a brief nonsustained wide-complex tachycardia EKG: Sinus rhythm/sinus arrhythmia; PACs ECHO: 12-08-2020 Interpretation Summary The estimated ejection fraction is EF 55-60 %. Normal LV systolic Function Normal function of Bioprothetic AV No significant change from prior echo Cardiac Cath: 08-17-2013 CONCLUSION: 1. Normal left ventricular size and function. 2. Normal left main coronary artery. 3. Left anterior descending artery with mild disease involving the first diagonal branch. 4. Ramus intermedius with minimal disease. 5. Dominant right coronary artery with no high-grade stenosis. 6. Left circumflex artery with no significant stenosis. 7. Severe aortic stenosis with an aortic valve area of 0.8 cm2 by cardiac cath and 0.82 cm2 by echocardiogram. 8. Mild pulmonary hypertension. RECOMMENDATIONS: Based on the above angiographic and hemodynamic findings, I would recommend aortic valve surgery electively. Radiography Diagnostic Testing: Radiology Impression Chest X-Ray 12/20/20 10:51 IMPRESSION: Progressive bibasilar patchy infiltrates worse on the left side. Electronically Signed: Tyler Mitchell MD at 11:50 EDT , Service support , Chest X-Ray 12/20/2020 14:25 IMPRESSION: Stable examination with evidence of bibasilar pulmonary infiltrates worse at the left lung base. Electronically Signed: Tyler Mitchell MD at 14:25 EDT
[2020-12-20 14:13] LABS: Anion Gap 20 (5-15); BUN 50 mg/dL (7-18); BUN/Creat Ratio 23.4 RATIO (10-20); Calcium,Total 9.8 mg/dL (8.5-10.1); Chloride 96 mmol/L (98-107); Creatinine, Serum 2.14 mg/dL (0.70-1.30); EST Glomerular Filtration Rate 32 mL/min (>60); Est Glom Filt Rate - Afr Amer 39 mL/min (>60); Estimated Creatinine Clearance 35.74 ml/min; Glucose 248 mg/dL (74-106); Magnesium 2.5 mg/dL (1.6-2.6); Phosphorus 7.5 mg/dL (2.5-4.9); Potassium 3.9 mmol/L (3.5-5.1); Sodium Level 135 mmol/L (136-145)
--- NOTE | 2020-12-20 14:19 | NURSING ---
1406-CXR obtained, [place] and Iván at bedside, HR noted to decrease to 50s, patient unresponsive, weak thready carotid pulse, order for levo and epi 1409- epinephrine 1 mg given, HR up to 130s, strong carotid pulse
[2020-12-20 14:31] LABS: Allen Test Positive; Base Excess -14 mmol/L (-2 to +2); Bicarbonate 15.2 mmol/L (22-26); Blood Gas Specimen Type ART; FI02 100; O2 Delivery Device BiPAP; PEEP 8; PO2 96 mmHG (75-100); SITE R Radial; SO2 94 % (95-99); Total Carbon Dioxide 17 mmol/L; pCO2 47.4 mmHg (35-45); pH 7.12 (7.35-7.45)
--- NOTE | 2020-12-20 15:01 | PN.CC_ITS ---
Assessment & Plan Assessment/Plan (1) COVID-19: (2) Acute hypoxemic respiratory failure: (3) Atrial fibrillation with rapid ventricular response: (4) H/O aortic valve replacement: (5) Type 2 diabetes mellitus: PLAN: RECOMMENDATIONS: 1. Palliative approach at this time 2. Continue Lovenox as ordered. 3. Continue Decadron to complete 10-day treatment course. 4. IV Lasix as needed to maintain euvolemic state. 5. Awake prone positioning was encouraged. 6. Perform walking oximetry prior to consideration for discharge home. 7. Given improving oxygenation status, will sign off. Please call with any additional questions. IMPRESSIONS: 1. Acute hypoxic respiratory failure secondary to COVID-19 pneumonia Unclear etiology. Clinical suspicion patient went into flash pulmonary edema secondary to SVT with RVR. Attempts at rate control were relatively unsuccessful. Patient did have an emergent echocardiogram at the bedside. Low clinical suspicion for PE as patient has been on Lovenox for several days prior to this event. 2. A. fib with RVR/history of aortic valve replacement Continue current medical management including systemic anticoagulation and beta-rainer regimen. 3. Essential hypertension/hyperlipidemia/type 2 diabetes mellitus/advanced age/obesity/delayed presentation/nonvaccinated status Complicates care, management, recovery and prognosis. Continue Lantus and sliding scale insulin coverage. TIME: 95 minutes of critical care time was spent addressing patient's acute hypoxic respiratory failure, SVT, hypotension, acute kidney injury, review of all data and collaboration with care team (12:30 PM to 2:20 PM) Subjective Subjective Called emergently to the patient's room at approximately 12:30 PM by the hospitalist. Patient reportedly was on nasal cannula oxygen previous, but then developed a rapid rate with worsening hypoxia. There was discussions about cardioversion versus adenosine versus Cardizem. Attempted metoprolol and Cardizem previously, but rates continue to be around 150. On my arrival to the patient's room, mottling of the lower extremities was noted. Patient was in SVT with heart rates around 150 and hypotensive. Decision was made to do an emergent cardioversion. Patient was given 4 mg of etomidate with appropriate sedation. The patient was then cardioverted using 200 J and 300 J. This was not successful in lowering heart rate. The patient was able to be weaned on FiO2, but ultimately was transferred to the intensive care unit for further evaluation. At that time, patient had received an amiodarone bolus with drip. This did help patient's heart rate, but he became hypotensive. Dr. Miranda was at the bedside and was collaborating in the care. At approximately 2:00, patient's heart rate became thready, so he was given 1 mg of epinephrine. This did help the blood pressure and heart rate. An ABG was obtained showing significant metabolic acidosis. Repeat chemistry showed significant worsening in renal function. Oxygenation did improve with BiPAP, but patient's reported she did not want aggressive measures such as a central line. Objective Data Objective Data Vital Signs: Vital Signs Temp Pulse Resp BP Pulse Ox 35.6 C L 105 H 30 H 60/47 L 94 12/20/20 10:00 12/20/20 14:29 12/20/20 14:25 12/20/20 14:29 12/20/20 14:25 Oxygen Flow Rate (L/min) 6 Oxygen Delivery Method Bi-pap Weight: 103 kg Body Mass Index (BMI) 30.5 Intake & Output: Intake and Output for Last 24 Hours 12/18/20 12/19/20 12/20/20 23:59 23:59 23:59 Intake Total 1300 / 1400 900 / 1100 423 / 423 Output Total 1750 / 2125 1550 / 1700 400 / 400 Balance -450 / -725 -650 / -600 Lab / Micro Data Result Diagrams: 12/20/20 06:00 12/20/20 13:45 Labs: Laboratory Results - last 24 hr 12/19/20 05:30: Magnesium 2.2 12/19/20 16:20: POC Glucose 280 H 12/19/20 20:57: POC Glucose 206 H 12/20/20 06:00: WBC 17.8 H, RBC 4.80, Hgb 14.8, Hct 43.0, MCV 89.6, MCH 30.8, MCHC 34.4, RDW Std Deviation 43.8, RDW Coeff of Anabella 13.6, Plt Count 189, MPV 12.2 H, Immature Gran % (Auto) 0.500, Neut % (Auto) 87.8 H, Lymph % (Auto) 7.2 L , [place] % (Auto) 3.5, Eos % (Auto) 0.7, Baso % (Auto) 0.3, Absolute Neuts (auto) 15.6 H, Absolute Lymphs (auto) 1.28, Nucleated RBC % 0 12/20/20 06:00: Sodium 133 L, Potassium 4.3, Chloride 97 L, Carbon Dioxide 24.0, Anion Gap 12, BUN 43 H, Creatinine 0.98, Estim Creat Clear Calc 78.05, Est GFR (MDRD) Af Amer 97, Est GFR (MDRD) Non-Af 80, BUN/Creatinine Ratio 44.1 H, Glucose 132 H, Calcium 9.4 12/20/20 09:40: POC Glucose 220 H 12/20/20 11:22: POC Glucose 234 H 12/20/20 13:45: Sodium 135 L, Potassium 3.9, Chloride 96 L, Carbon Dioxide 19.0 L, Anion Gap 20 H, BUN 50 H, Creatinine 2.14 H, Estim Creat Clear Calc 35.74, Est GFR (MDRD) Af Amer 39 L, Est GFR (MDRD) Non-Af 32 L, BUN/Creatinine Ratio 23.4 H, Glucose 248 H, Calcium 9.8, Phosphorus 7.5 H, Magnesium 2.5 Micro: Microbiology 12/07/20 21:35 Blood Culture (Wb) - Right Hand Blood Culture - Final No growth in 5 days. 12/07/20 21:35 Blood Culture (Wb) - Anticubital Left Blood Culture - Final No growth in 5 days. 12/12/20 20:45 Urine, Clean Catch Legionella Antigen - Final 12/12/20 20:45 Urine, Clean Catch Streptococcus pneumoniae Antigen (M - Final 12/12/20 10:45 Mucosa - Nasopharyngeal Respiratory Panel (PCR) - Final 12/07/20 21:42 Nasal Secretion SARS-CoV-2 Antigen (Rapid) - Final SARS-CoV-2 (COVID 19) ABG Data ABG results: ABG 12/20/20 12/20/20 11:24 14:24 Specimen Type ART ART Sample Site R Radial R Radial pH 7.44 7.12 L* Bicarbonate Actual 19.8 L 15.2 L Total CO2 21 17 Base Excess -4 L -14 L O2 Saturation 83 L 94 L O2 % 100 100 ABG pCO2 29.0 L 47.4 H ABG pO2 45 L 96 Lele Test Positive Positive O2 Delivery Device BiPAP BiPAP POC PEEP 8 Crit Call To/Read Back Yes Blood Gas Notified Whom shaw Radiography Diagnostic Testing: Radiology Impression Chest X-Ray 12/20/20 10:51 IMPRESSION: Progressive bibasilar patchy infiltrates worse on the left side. Electronically Signed: Tyler Mitchell MD at 11:50 EDT , Service support , Chest X-Ray 12/20/20 13:57 IMPRESSION: Stable examination with evidence of bibasilar pulmonary infiltrates worse at the left lung base. Electronically Signed: Tyler Mitchell MD at 14:25 EDT , Service support , Charges/Coding Procedures Hospitalists Procedures: 93390 Critial Care 1st Hr Multi Select Codes Hospitalists' Procedures Procedures: 98503 Critial Care Addl 30 Min ((95 total minutes of critical care time))
--- NOTE | 2020-12-20 16:44 | CHAPLAIN ---
Type of Pastoral Visit ___ Initial Visit ___ Follow-up Visit ___ On-call Visit ___ General Patient Visit ___ Spiritual Assessment ___ Family Conference _x__ Bereavement ___ Rapid Response ___ Code Blue ___ Other (describe below) Pastoral Care Referral From ___ Patient ___ Family ___ Nurse ___ Physician ___ Manager Acute ___ General Production Manager _x__ Other (describe below) Sacrament/Intervention _x__ Active listening ___ Anointing ___ Yazidism _x__ Bereavement ___ Communion ___ Leila exploration ___ ___ Life review _x__ Prayer ___ Reconciliation ___ Sacrament of Sick _x__ Supportive presence ___ Wedding _x__ Other (describe below) Pastoral Comments notified by Darren Liaison of of patient and that family was gathered in room; entered room to find the , his , and about seven adult children grieving appropriately; gave time and presence with offer of support; asked for water for self and family and this was given; son asked for a prayer with family gathered around bedside; listened to spouse and her leila expressed concerning care by family and will of God; assisted family with their questions about next steps and directed them to RN; saw family out of the hospital when they were ready to leave
--- NOTE | 2020-12-20 16:46 | NURSING ---
1500 HR 64 BP 49/28 on levophed 1512- Vent rhythm noted on monitor 1515-PEA, Devyn Kong RN and Devyn Sparrow, RN confirmed TOD as 1515, family at bedside, Dr. Minor notified.
--- NOTE | 2020-12-20 17:54 | EXP.PCM_ITS ---
Preliminary Cause of Preliminary Cause of Preliminary Cause of : Flash pulmonary edema secondary to A. fib with RVR Date of Admission: 12/08/20 Principle Diagnosis Problem List: Active and Suspected Problems (Updated 12/20/20 @ 14:[address] Balbir Miranda MD) Hypotension (Acute) Acute hypoxemic respiratory failure (Acute) Atrial fibrillation with rapid ventricular response (Acute) COVID-19 (Acute) Hospital Course Mr. Rucker is a 75-year-old male who is unvaccinated and became symptomatic with Covid on 11/25/2020. At that time he was having fevers, diarrhea, headaches as well as a cough and shortness of breath. As an outpatient had been started on doxycycline as well as dexamethasone and hydroxychloroquine. When he presented to the hospital he was initially transferred to the ICU. He was managed well with BiPAP and Decadron and then was transferred out to the progressive care unit. He did have some slow but significant improvement in his respiratory status and he improved from being on air Vo to nasal cannula. Yesterday he was down to 5 L nasal cannula and was doing well. He been receiving intermittent doses of IV Lasix for volume status and his electrolytes were being monitored. This morning he was doing apparently pretty well on 5 to 7 L of oxygen via nasal cannula and had breakfast and then was noted to be mildly tachycardic at a little over 100. He was given his dose of metoprolol given his history of A. fib however his heart rate continued to climb. With his heart rate elevated he also became more short of breath and was placed back on BiPAP with an FiO2 of 100%. When I evaluated him shortly thereafter chest x-ray was obtained stat which showed worsening patchy infiltrates volumes were small on my read. We also obtained a stat ABG which had a pH of 7.44 bicarb of 28 PCO2 of 29 and a PO2 of 45. At this point it was felt that his significant shortness of breath was likely related to his severe tachycardia so he was given a bolus of Cardizem 20mg since it did appear that he was in A. fib with RVR. This caused very little change in his heart rates he was also started on a Cardizem drip. At that time his blood pressures were stable with systolics in the 120s. At this point I did have a conversation with the air export coordinator who agreed with transferring to the ICU and giving a bolus of adenosine with potential cardioversion. On my return to the patient room he was now a systolic in the 70s. At this point the case was discussed with pulmonology who came down for conscious sedation and since the patient had been therapeutically anticoagulated for 12 days since his admission and given the urgency of the situation with systolics in the 70s, the decision was made to proceed with cardioversion. He provided conscious sedation with etomidate and he was cardioverted at 200 J synchronized, this had very little effect on his heart rate so he was cardioverted again at 300 J synchronized. This once again had very little effect therefore cardiology was consulted and he was started on amiodarone bolus as well as amiodarone drip. He was transferred to the ICU wher e he was started on IV fluids as well as Levophed and given a dose of epinephrine. He was titrated up to 10 mcg/min of the Levophed and the was at bedside and did not want any further aggressive treatments. He remains a DNR CCA with no intubation. He continued to deteriorate and on 12/20/2020 at 1515. Visit Charges Inpatient E&M: [id number] Disch Hosp
== END 2020-12-20 15:15 | DRG 177 ==
LOC: ED 22:14 → ICU 12-08 01:11 → PCU 12-14 13:21 → ICU 12-20 13:10
PROVIDERS: Internal Medicine; Internal Medicine Critical Care Medicine; Admitting Provider Hospitalist; Emergency Provider Emergency Medicine; PCP Family Medicine; Visit Provider Family Medicine
DX: U07.1 COVID-19 (principal); J12.82 Pneumonia due to coronavirus disease 2019; J96.01 Acute respiratory failure with hypoxia; J81.0 Acute pulmonary edema; N17.9 Acute kidney failure, unspecified; E87.2 Acidosis; I47.1 Supraventricular tachycardia; I48.91 Unspecified atrial fibrillation; E83.42 Hypomagnesemia; N40.0 Benign prostatic hyperplasia without lower urinary tract symptoms; I95.9 Hypotension, unspecified; I06.0 Rheumatic aortic stenosis; E11.65 Type 2 diabetes mellitus with hyperglycemia; I10 Essential (primary) hypertension; E78.5 Hyperlipidemia, unspecified; E66.9 Obesity, unspecified; Z68.30 Body mass index [BMI] 30.0-30.9, adult; Z79.84 Long term (current) use of oral hypoglycemic drugs; Z79.82 Long term (current) use of aspirin; Z79.899 Other long term (current) drug therapy; Z95.3 Presence of xenogenic heart valve
CPT/HCPCS: 36415; 36600; 71045; 71275; 80048; 80053; 82550; 82803; 82962; 83605; 83615; 83735; 83880; 84100; 84145; 84443; 84484; 85025; 85027; 85379; 85384; 86140; 87040; 87426; 87449; 87633; 87641; 93005; 93306; 93308; 93970; 94002; 94003; 94660; 94667; 94668; 97110; 97116; 97162; 97166; 97530; 97535; 99251; 99285; J7030; J7050; J7120; Q9967; A4216; G0463; J1940